=== PATIENT | female | born 1935 | race Caucasian/White ===

== ENCOUNTER 2017-04-26 06:41 | Day surgery (SDC) | payer MEDICARE, SELFPAY ==
[2017-04-26] MEDS: Bupivacaine 0.25% 30 ML Vial (06:56)
[2017-04-26 07:00] VITALS: BP 155/57; PULSE 69; RESP 14; TEMP 35.8; O2SAT 99; BMI 25.8
[2017-04-26] MEDS: MethylPREDNISolone Acetate 80 MG/ML Vial (07:14)
--- NOTE | 2017-04-26 08:20 | RAD_ITS ---
STUDY: X-RAY - LUMBAR SPINE REASON FOR EXAM: Female, 82 years old. Radiofrequency ablation of the left L3-S1 facet joints. TECHNIQUE: 9 coned-down view(s) of the lumbar spine were obtained intraoperatively.. COMPARISON: None FINDINGS: Imaging provided for left L3-S1 facet joint radiofrequency ablation. RAD/Lumbar Spine 2 or 3 Views IMPRESSION: Imaging provided for radiofrequency ablation. Electronically Signed: All Glasgow MD at 9:45 EST Tel [phone], Service support ,
[2017-04-26 08:50] VITALS: BP 121/56; BP 155/57; PULSE 58; RESP 16; TEMP 36.7; O2SAT 97
[2017-04-26 08:55] VITALS: BP 125/61; BP 155/57; PULSE 58; RESP 16; O2SAT 94
[2017-04-26 09:00] VITALS: BP 131/60; BP 155/57; PULSE 55; RESP 16; O2SAT 98
[2017-04-26 09:05] VITALS: BP 128/67; BP 155/57; PULSE 58; RESP 16; TEMP 36.6; O2SAT 98
[2017-04-26 09:31] VITALS: BP 155/57
--- NOTE | 2017-04-26 09:46 | PCM.OPRPT ---
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 (2) Lumbar facet arthropathy Status: Chronic (3) Lumbosacral spondylosis Status: Chronic Report of Operation Date of Procedure: 04/26/17 Pre-Operative Diagnosis: Lumbosacral spondylosis, lumbosacral degenerative disc disease, lumbar facet arthropathy Post-Operative Diagnosis: Lumbosacral spondylosis, lumbosacral degenerative disc disease, lumbar facet arthropathy Surgery/Procedure Performed:: Left-sided radiofrequency ablation of the medial branch L3-L4 L5-S1 Description of Surgical Findings:: PROCEDURE: Left-sided radiofrequency ablation of the medial branch L3, L4, L5, S1 PREOPERATIVE DIAGNOSES: Lumbosacral spondylosis, lumbosacral degenerative disc disease, lumbar facet arthropathy POSTOPERATIVE DIAGNOSES: Lumbosacral spondylosis, lumbosacral degenerative disc disease, lumbar facet arthropathy ANESTHESIA: MAC COMPLICATIONS: None BLOOD LOSS: Minimal PROCEDURE IN DETAIL: History and physical today was reviewed. Risks and benefits of procedure explained. The patient understood, agreed to the procedure and informed consent was obtained. IV inserted per routine protocol. The patient was taken to the operating room, placed in the prone position with a pillow positioned underneath the abdomen. The right side of the lower back was prepped and draped in a sterile fashion using iodine x 3. Under fluoroscopy guidance, on an oblique view, the L3 through S1 vertebral bodies were visualized. The skin and subcutaneous tissue was anesthetized with approximately 10 mL of 1% lidocaine using a 25-gauge regular needle. Under direct visualization with fluoroscopy at approximately 25-degree angle, starting on the left L3, ending on the left S1 passing through the L4-L5 using a 20-gauge 15 cm with a 10 mm curved active tip radiofrequency ablation needle the needle passed through the skin. The tip of the needle was maneuvered and directed towards the superior and medial gutter of the transverse process at the vicinity of the medial branch. Once the tip of the needle was in contact with the bone, the needle pulled approximately 2 mm up the bone. The stylet of each needle was then removed. After negative aspiration of blood with CSF and confirmation of AP as well as oblique view, radiofrequency ablation probe was then inserted at each level. Impedance was then recorded at L3 to be 244, at L4 291, at L5 303, at S1 222 ohm. Motor-evoked potential was then initiated to 1.5 volt without any motor response at each corresponding level. The probe was then removed intact and a total of 6 mL preservative-free 1% lidocaine was injected in divided doses between those 4 levels after negative aspiration of blood with CSF. The radiofrequency ablation probe was then reinserted after confirmation of AP, oblique as well as lateral view. Radiofrequency ablation was then initiated to 80 degrees Celsius for 90 seconds at each level. Once concluded, the probe was then removed intact and a total of 6 mL of preservative-free 0.25% Marcaine with 40 mg Depo-Medrol was injected in divided doses between those 4 levels. The needles were then removed intact. The patient experienced no signs or symptoms of intrathecal, intravascular injection. The patient experienced no paraesthesia. The procedure was completed without any apparent difficulty, any complication. The patient appeared to tolerate well. Sensory as well as motor exam was unchanged from prior to procedure. ASSESSMENT AND PLAN: This is a 82-year-old female with lumbosacral spondylosis, lumbosacral degenerative disc disease, lumbar facet arthropathy, status post left-sided radiofrequency ablation of the medial branch L3 through S1. The patient will continue her current medications. The patient will follow up in approximately 2 weeks for reevaluation.
== END 2017-04-26 09:32 | disposition home or self-care (01) ==
LOC: SDC 06:43 → AC 06:43
PROVIDERS: Family Provider Family Medicine; PCP Family Medicine; Visit Provider Anesthesiology Pain Medicine
PROC: (CPT 64635; principal; 2017-04-26 08:05)
DX: M51.17 Intervertebral disc disorders with radiculopathy, lumbosacral region (principal); M43.16 Spondylolisthesis, lumbar region; M47.27 Other spondylosis with radiculopathy, lumbosacral region; M53.3 Sacrococcygeal disorders, not elsewhere classified; M50.10 Cervical disc disorder with radiculopathy, unspecified cervical region; M47.812 Spondylosis without myelopathy or radiculopathy, cervical region; I10 Essential (primary) hypertension; K21.9 Gastro-esophageal reflux disease without esophagitis; I48.91 Unspecified atrial fibrillation; Z79.891 Long term (current) use of opiate analgesic; Z79.899 Other long term (current) drug therapy; Z78.0 Asymptomatic menopausal state; Z85.828 Personal history of other malignant neoplasm of skin
CPT/HCPCS: 64493; 64635; 64636 ×2; 72100; 76000; J7120

== ENCOUNTER 2017-05-24 09:58 | Day surgery (SDC) | payer MEDICARE, SELFPAY ==
[2017-05-24 10:21] VITALS: BP 152/60; PULSE 64; RESP 16; TEMP 36.2; O2SAT 98; BMI 25.4
--- NOTE | 2017-05-24 11:40 | RAD_ITS ---
PROCEDURE: Sacral block. DATE OF EXAMINATION: May 24, 2017. INDICATION: Female, 82 years old. Low back pain. FLUOROSCOPY TIME (if supplied): (0:15) minutes/seconds intraoperative fluoroscopy was provided for caudal block. The spinal needle is seen overlying the posterior midportion of the sacrum. RAD/Fluor Guidance for Spine Inj IMPRESSION: Intraoperative fluoroscopic service was provided for caudal block. Electronically Signed: All Glasgow MD at 13:37 EST Tel [phone], Service support ,
[2017-05-24] MEDS: Bupivacaine 0.25% 30 ML Vial (11:46)
[2017-05-24] MEDS: MethylPREDNISolone Acetate 80 MG/ML Vial (11:46)
[2017-05-24 11:53] VITALS: BP 131/63; BP 152/60; PULSE 66; RESP 16; TEMP 37; O2SAT 100
[2017-05-24 12:00] VITALS: BP 129/58; BP 152/60; PULSE 57; RESP 18; O2SAT 97
[2017-05-24 12:05] VITALS: BP 127/62; BP 152/60; PULSE 60; RESP 16; O2SAT 98
--- NOTE | 2017-05-24 12:06 | OP.PCM_ITS ---
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 (2) Lumbosacral radiculitis Status: Chronic Report of Operation Date of Procedure: 05/24/17 Pre-Operative Diagnosis: Lumbosacral radiculopathy, lumbosacral degenerative disc disease, lumbosacral spinal stenosis Post-Operative Diagnosis: Lumbosacral radiculopathy, lumbosacral degenerative disc disease, lumbosacral spinal stenosis Surgery/Procedure Performed:: Caudal epidural steroid injection Description of Surgical Findings:: PROCEDURE: Caudal epidural steroid injection PREOPERATIVE DIAGNOSIS: Lumbosacral radiculopathy, lumbosacral degenerative disc disease, lumbosacral spinal stenosis POSTOPERATIVE DIAGNOSIS: Lumbosacral radiculopathy, lumbosacral degenerative disc disease, lumbosacral spinal stenosis ANESTHESIA: MAC COMPLICATIONS: None BLOOD LOSS: Minimal PROCEDURE IN DETAIL: History and physical today was reviewed. Risks and benefits of the procedure were explained. The patient understood, agreed to our procedure, and informed consent was obtained. IV inserted per routine protocol. The patient was taken to the operating room, placed in a prone position with a pillow positioned underneath the abdomen. The lower back and tailbone area was prepped and draped in a sterile fashion using iodine ?3 under fluoroscopy guidance on the lateral view the caudal space was identified skin and subcutaneous tissue anesthetized approximately 3 cc of 1 % lidocaine using a 25-gauge regular needle under direct visualization with fluoroscopy on the lateral approach using a 22-gauge 3-1/2 inch spinal needle the needle was advanced via the skin through the sacral hiatus tip of the needle passed through the sacrococcygeal ligament advanced approximately S4 area after negative aspiration for blood or CSF a total of 3 cc of contrast were injected to confirm correct placement of the needle as well as cephalad spread the spread was followed to approximately L5 area after confirmation of AP as well as lateral view and repeated negative aspiration a total of 15 cc of preservative-free 0.125% Marcaine with 80 mg of Depo-Medrol were injected easily the needle was then removed intact patient experienced no sinus symptoms intrathecal or intravascular injection patient experienced no paresthesia the procedure was completed without any apparent difficulty any complication the patient appeared to tolerate well. ASSESSMENT AND PLAN: This is a 82-year-old Female with lumbosacral radiculopathy, lumbosacral degenerative disc disease, lumbosacral spinal stenosis status post caudal epidural steroid injection. The patient will continue her current medications. The patient will follow in approximately 2 weeks for possible repeat of the procedure if indicated.
[2017-05-24 12:10] VITALS: BP 134/64; BP 152/60; PULSE 60; RESP 16; TEMP 36.8; O2SAT 96
[2017-05-24 12:24] VITALS: BP 152/60
== END 2017-05-24 12:40 | disposition home or self-care (01) ==
LOC: SDC 09:59 → AC 10:00
PROVIDERS: Family Provider Family Medicine; PCP Family Medicine; Visit Provider Anesthesiology Pain Medicine
PROC: 3E0S3BZ Introduction of Anesthetic Agent into Epidural Space, Percutaneous Approach (ICD-10-PCS; CPT 62282; principal; 2017-05-24 11:25)
DX: M51.17 Intervertebral disc disorders with radiculopathy, lumbosacral region (principal); M47.27 Other spondylosis with radiculopathy, lumbosacral region; M43.16 Spondylolisthesis, lumbar region; M48.061 Spinal stenosis, lumbar region without neurogenic claudication; M53.3 Sacrococcygeal disorders, not elsewhere classified; M48.02 Spinal stenosis, cervical region; I10 Essential (primary) hypertension; M19.90 Unspecified osteoarthritis, unspecified site; K21.9 Gastro-esophageal reflux disease without esophagitis; Z79.891 Long term (current) use of opiate analgesic; Z79.899 Other long term (current) drug therapy; Z78.0 Asymptomatic menopausal state; Z85.828 Personal history of other malignant neoplasm of skin
CPT/HCPCS: 62323; 64483; 77003; J7120; J3490

== ENCOUNTER 2018-03-07 08:40 | Day surgery (SDC) | payer MEDICARE, SELFPAY ==
[2018-02-25 16:38] VITALS: BMI 25.8
[2018-03-07 09:23] VITALS: BP 165/72; PULSE 65; RESP 14; TEMP 36.9; O2SAT 99; BMI 27.3
[2018-03-07] MEDS: MethylPREDNISolone Acetate 80 MG/ML Vial (10:03)
[2018-03-07] MEDS: Bupivacaine 0.25% 30 ML Vial (10:03)
[2018-03-07 10:09] VITALS: BP 136/75; BP 165/72; PULSE 60; RESP 18; TEMP 36.1; O2SAT 96
--- NOTE | 2018-03-07 10:10 | RAD_ITS ---
PROCEDURE: Right C4-C7 cervical facet block. DATE OF EXAMINATION: March 07, 2018. INDICATION: Female, 83 years old. Chronic neck pain. FLUOROSCOPY TIME (if supplied): (0:14) minutes/seconds. For coned down intraoperative views were obtained. Intraoperative fluoroscopic imaging provided for right C4-C7 facet joint block. RAD/Cerv Spine 4 or 5 Views IMPRESSION: Intraoperative imaging provided for right C4-C7 facet joint block. Electronically Signed: All Glasgow MD at 9:36 EST Tel [phone], Service support ,
[2018-03-07 10:15] VITALS: BP 146/68; BP 165/72; PULSE 62; RESP 18; O2SAT 94
--- NOTE | 2018-03-07 10:19 | PCM.OPRPT ---
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 (2) DDD (degenerative disc disease), cervical Status: Chronic Report of Operation Date of Procedure: 03/07/18 Pre-Operative Diagnosis: Cervical spondylosis, cervical degenerative disc disease Post-Operative Diagnosis: Cervical spondylosis, cervical degenerative disc disease Surgery/Procedure Performed:: Right-sided cervical facet steroid injection C4, C5, C6, C7 Description of Surgical Findings:: PROCEDURE: Right-sided cervical facet steroid injection C4, C5, C6, C7 PREOPERATIVE DIAGNOSES: Cervical spondylosis, cervical degenerative disc disease, and cervical facet arthropathy POSTOPERATIVE DIAGNOSES: Cervical spondylosis, cervical degenerative disc disease, and cervical facet arthropathy ANESTHESIA: MAC COMPLICATIONS: None BLOOD LOSS: Minimal PROCEDURE IN DETAIL: History and physical today was reviewed. Risks and benefits of the procedure were explained. The patient understood, agreed to our procedure, and informed consent was obtained. IV inserted per routine protocol. The patient was taken to the operating room, placed in a prone position with a pillow positioned underneath the chest. The neck area was prepped and draped in a sterile fashion using iodine x3. Under fluoroscopy guidance, on AP view, C4 through C7 vertebral bodies were visualized. Under direct visualization fluoroscopy starting on the right C4 ending on the right C7 passing through the C5-C6 using a 25-gauge 3-1/2 inch spinal needle the needle was advanced via the skin the tip of the needle's maneuver and directed towards the epiphyseal junction of each corresponding vertebra once the tip of the needle was at the vicinity of the each corresponding vertebra under direct visualization with fluoroscopy and after repeated negative aspiration a total of 4 cc of preservative-free 0.25% Marcaine with 80 mg of Depo-Medrol were injected in divided doses between those 4 levels, the needles were then removed intact. The patient experienced no signs or symptoms of intrathecal, intravascular injection. The patient experienced no paraesthesia. The procedure was completed without any apparent difficulty, any complication. The patient appeared to tolerate well. Sensory as well as motor exam was unchanged from prior to procedure. ASSESSMENT AND PLAN: This is a 83-year-old Female with cervical spondylosis, cervical degenerative disc disease, and cervical facet arthropathy, status post right-sided cervical facet steroid injection C4 through C7. The patient will continue her current medications. The patient will follow up in approximately 2 weeks fo reevaluation.
[2018-03-07 10:20] VITALS: BP 143/69; BP 165/72; PULSE 62; RESP 18; O2SAT 98
[2018-03-07 10:25] VITALS: BP 151/63; BP 165/72; PULSE 59; RESP 18; TEMP 36.2; O2SAT 97
[2018-03-07 10:49] VITALS: BP 165/72
--- OUTSIDE RECORDS SUMMARY | 2018-06-08 19:49 | XMS RPT_ITS ---
:1935 Author Organization OHIP Care Team Providers Name Role Phone DARLIN SOTELO ([employer]) Attending Unavailable CEBUL IIIISAÍAS Attending Unavailable DARLIN SOTELO ([employer]) Referring Unavailable CEBUL IIIISAÍAS Referring Unavailable Michael Pérez Attending Unavailable Michael Pérez Referring Unavailable Cebul IIIIsaías Primary Care Unavailable Michael Pérez Attending Unavailable Michael Pérez Referring Unavailable Cebul III, Isaías Primary Care Unavailable Beto, Michael Attending Unavailable Beto, Michael Referring Unavailable Cebul III, Isaías Primary Care Unavailable Rashad Enriquez Attending Unavailable Cebul III, Isaías Referring Unavailable Cebul III, Isaías Primary Care Unavailable Beto, Michael Attending Unavailable Beto, Michael Referring Unavailable Cebul III, Isaías Primary Care Unavailable Diony Deshpande Attending Unavailable Cebul III, Isaías Referring Unavailable PROBLEMS PROBLEMS DATE TYPE CONDITION / CODE ATTENDING STATUS SOURCE 06/04/2015 Active Hyperlipidemia, NA Active [facility] unspecified / [facility] E78.5(ICD-10) Repository 07/14/2005 Active Essential NA Active [facility] (primary) [facility] hypertension / Repository I10(ICD-10) PROCEDURES PROCEDURES No Procedure Records FoundRESULTS RESULTS PROGRESS Observed: 04/12/2018 Status: COMPLETED Source: [facility] 8:47 AM [facility] REPOSITORY HNO ID: [id number] Author: Isaías Royal III Service: (none) Author Type: Physician Type: Progress Notes Filed: 04/12/2018 9:28 AM Note Text: SUBJECTIVE: Chief Complaint: Silvia Bergman is a 83 year old female who presents for a comprehensive problem evaluation. New concerns today include 1. hypertension--started on hctz 12.5mg qday last wk 2. hx of atrial fib. [employer] did not want her on an anticoagulant. 3. Dr Monique placed her on cymbalta for L lumbar radiculopathy 4. cymbalta helped her with grieving 's but she had evil dreams. Exercises regularly - Minimal exercise associated with work or ADL's DEXA is due - No Last DEXA was done 2007 Current Outpatient Prescriptions on File Prior to Visit: Hydrochlorothiazide 12.5 mg capsule Take 1 capsule by mouth once daily. escitalopram oxalate (LEXAPRO) 10 mg tablet Take 1 tablet by mouth once daily. lisinopril (ZESTRIL, PRINIVIL) 40 mg tablet Take 1 tablet by mouth once daily. verapamil SR (CALAN SR) 240 mg CR tablet Take 1 tablet by mouth twice daily. metoprolol succinate ER (TOPROL XL) 100 mg Tb24 Take 1 tablet by mouth once daily. famotidine (PEPCID) 40 mg tablet Take 1 tablet by mouth once daily. atorvastatin (LIPITOR) 10 mg tablet Take 1 tablet by mouth once daily. meloxicam (MOBIC) 7.5 mg tablet Take 7.5 mg by mouth once daily. traMADol (ULTRAM) 50 mg tablet Take 1 tablet by mouth every 6 hours as needed for Pain. estradiol (ESTRACE) 0.01 % (0.1 mg/gram) vaginal cream Use small amount at vaginal opening 2-3 nights per week cholecalciferol(VITAMIN D 1,000 UNIT CAP) Take one daily MULTI-VITAMIN TAB Take one(1) tablet daily. No current facility-administered medications on file prior to visit. PAST MEDICAL HISTORY Diagnosis Date - Disc disease, degenerative, lumbar or lumbosacral - Diverticulosis of colon (without mention of hemorrhage) - Essential hypertension, benign - GERD (gastroesophageal reflux disease) - Internal hemorrhoids without mention of complication - Lumbosacral radiculopathy - Lumbosacral spinal stenosis - Mitral valve disorders(424.0) - Neurogenic claudication due to lumbar spinal stenosis 01/19/2012 - Other acute pericarditis - Other and unspecified hyperlipidemia - Palpitations - Unspecified atrial fibrillation (HCC) - Venous insufficiency 07/23/2011 MENSTRUAL HISTORY PERIOD REGULARITY: FLOW CHARACTERISTICS: DYSMENORRHEA: CYCLIC SYMPTOMS: HORMONE REPLACEMENT: PAST SURGICAL HISTORY Procedure Laterality Date - CATARACT EXT; EYEONICS IOL SYS 2010 bilateral - COLONOSCOP W/ OR W/O BRSH SPEC 10/28/2005 Colonoscopy - LIGATE FALLOPIAN TUBE Tubal ligation - RADIOFREQUENCY ABLATION Right 04/11/2018 Medial brach L3, L4, L5, S1 - REM LESIO TRUNK,ARM,LEG 1.1 -2.0CM 11/24/06 Exc. left mid abd lesion - REMOVAL GALLBLADDER 1968 Cholecystectomy - TOTAL ABDOM HYSTERECTOMY 1982 Hysterectomy, MELO (without BSO) FAMILY HISTORY Problem Relation Age of Onset - other (brain tumor [Other]) Father - Hypertension Mother - other (neuropathy/lower leg [Other]) Mother - Diabetes Mother diabetic peripheral neuropathy - Hypertension Sister Social History Marital status: Spouse name: Flor Years of education: 12 Number of children: 4 Occupational History Occupation Employer Comment RETIRED Social History Main Topics Smoking status: Never Smoker Smokeless tobacco: Never Used Alcohol use: No Drug use: No Sexual activity: No Immunization History Administered Date(s) Administered DT(PEDIATRIC) 02/04/1999 Influenza Seasonal - High Dose - Age 65+ 01/09/2016 12/20/2017 Influenza Seasonal Inj Age 3+ 01/05/2014 Influenza Vaccine, Split-Non Spec 01/01/2012 01/09/2013 Influenza Vaccine, Whole 01/22/2005 Pneumococcal-13 Vac Conjugate 06/04/2015 Zostavax 02/15/2016 ACTIVE PROBLEM LIST Essential Hypertension, Benign Hyperlipidemia Ldl Goal <130 Palpitations Senile Osteoporosis Venous Insufficiency Neurogenic Claudication Due to Lumbar Spinal Stenosis Skin Cancer Trigger Ring Finger of Left Hand Entrapment of Left Ulnar Nerve Uterine Prolapse Recurrent Uti Microscopic Hematuria Lower Urinary Tract Symptoms (Luts) REVIEW OF SYSTEMS: GENERAL:Denies fever, chills, night sweats, or changes in weight. DERMATOLOGIC: Denies any new skin conditions, rashes or changing moles. EYES: ENT: RESPIRATORY: Denies any cough, dyspnea, or wheezing. CARDIOVASCULAR: Denies any chest pain with exertion or at rest, palpitations, syncope, or edema. BREASTS: no lumps, discharge or pain GASTROINTESTINAL: Denies any nausea, vomiting, abdominal pain, heartburn, changes in bowel habit, Denies any rectal bleeding. GENITOURINARY: Denies any urinary frequency, urgency, incontinence, dysuria. Denies vaginal odor, discharge or lesions. Denies irregular vaginal bleeding or spotting. MUSCULOSKELETAL: Denies any joint swelling, crepitus, joint pain, or loss of range of motion., Positive for back pain NEURO: Denies any headaches, tremors, dizziness, vertigo, memory loss, confusion., Denies weakness, numbness or tingling.. PSYCHIATRIC: Denies any sleeping problems, history of abuse, marital discord., Positive for depression HEMATOLOGIC/LYMPHATIC/IMMUNOLOGIC: Denies anemia, bruising, bleeding abnormalities. ENDOCRINE: Denies any heat or cold intolerance, polyuria or polydipsia. OBJECTIVE: PHYSICAL EXAMINATION: BP 177/76 Pulse 76 Temp 36.7 ?C (98 ?F) (Right Tympanic) Resp 12 Ht 162 cm (5' 3.78) Wt 67.1 kg (148 lb) BMI 25.58 kg/m? GENERAL APPEARANCE: Well appearing, alert, in no acute distress, well-hydrated, well nourished. SKIN: Skin color, texture, turgor normal, no suspicious rashes or lesions HEAD: No significant findings. NECK: Supple, no lymphadenopathy, normal thyroid, no carotid bruits and no JVD BACK: Back symmetric, Normal curvature, No CVAT. LUNGS: Normal breath sounds, Clear to auscultation, No wheezes, No crackles HEART:Normal PMI, Regular rate and rhythm, Normal heart sounds, S1 and S2 and No murmurs. BREASTS: Exam deferred ABDOMEN: Soft, Non-tender, No palpable masses and No hepatosplenomegaly. EXTREMITIES:Normal, No deformities, No skin discoloration, No edema and Normal pulses bilaterally. NEURO: Awake, alert and oriented x 3, Normal gait and No involuntary motions. GENITALIA: exam deferred RECTAL: No anorectal masses, anal sphincter exam normal and exam deferred Lab Results for SILVIA BERGMAN ( ) as of 04/12/2018 09:00 Ref. Range 04/08/2018 10:46 Sodium Latest Ref Range: 136 - 144 mmol/L 141 Potassium Latest Ref Range: 3.7 - 5.1 mmol/L 3.7 Chloride Latest Ref Range: 97 - 105 mmol/L 101 CO2 Latest Ref Range: 22 - 30 mmol/L 24 BUN Latest Ref Range: 7 - 21 mg/dL 17 Creatinine Latest Ref Range: 0.58 - 0.96 mg/dL 0.81 Glucose Latest Ref Range: 74 - 99 mg/dL 89 Protein, Total Latest Ref Range: 6.3 - 8.0 g/dL 6.8 Calcium Latest Ref Range: 8.5 - 10.2 mg/dL 9.6 Albumin Latest Ref Range: 3.9 - 4.9 g/dL 4.2 Bilirubin, Total Latest Ref Range: 0.2 - 1.3 mg/dL 0.6 Alkaline Phosphatase Latest Ref Range: 34 - 123 U/L 106 ALT Latest Ref Range: 7 - 38 U/L 11 AST Latest Ref Range: 13 - 35 U/L 20 Anion Gap Latest Ref Range: 9 - 18 mmol/L 16 eGFR- Unknown >60 eGFR-All Other Races Latest Units: . >60 Hematocrit Latest Ref Range: 36.0 - 46.0 % 37.9 Total Cholesterol, Nonfasting Latest Ref Range: <200 mg/dL 252 (H) Triglycerides, Nonfasting Latest Ref Range: <150 mg/dL 103 HDL Cholesterol, Nonfasting Latest Ref Range: >39 mg/dL 63 LDL Cholesterol, Nonfasting Latest Ref Range: <100 mg/dL 168 (H) Non HDL Cholesterol, Nonfasting Latest Ref Range: <130 mg/dL 189 (H) VLDL Cholesterol, Nonfasting Latest Ref Range: <30 mg/dL 21 Total Chol/HDL Ratio, Nonfasting Latest Ref Range: <5.10 mg/dL 4.00 LDL/HDL Ratio, Nonfasting Latest Ref Range: <2.54 mg/dL 2.67 (H) TSH Latest Ref Range: 0.400 - 5.500 uU/mL 3.030 WBC Latest Ref Range: 3.70 - 11.00 k/uL 5.88 RBC Latest Ref Range: 3.90 - 5.20 m/uL 3.94 Hemoglobin Latest Ref Range: 11.5 - 15.5 g/dL 12.3 Platelet Count Latest Ref Range: 150 - 400 k/uL 327 MCV Latest Ref Range: 80.0 - 100.0 fL 96.2 MCH Latest Ref Range: 26.0 - 34.0 pG 31.2 MCHC Latest Ref Range: 30.5 - 36.0 g/dL 32.5 MPV Latest Ref Range: 9.0 - 12.7 fL 9.6 RDW-CV Latest Ref Range: 11.5 - 15.0 % 13.1 Neut% Latest Units: % 70.7 Abs Neut (ANC) Latest Ref Range: 1.45 - 7.50 k/uL 4.15 Lymph% Latest Units: % 15.0 Abs Lymph Latest Ref Range: 1.00 - 4.00 k/uL 0.88 (L) Dawson% Latest Units: % 9.0 Abs Dawson Latest Ref Range: <0.87 k/uL 0.53 Eosin% Latest Units: % 4.3 Abs Eosin Latest Ref Range: <0.46 k/uL 0.25 Baso% Latest Units: % 1.0 Abs Baso Latest Ref Range: <0.11 k/uL 0.06 Nucleated Reds Latest Ref Range: 0 /100 WBC 0.0 Absolute nRBC Latest Ref Range: <0.01 k/uL <0.01 Diff Type Unknown Auto Diff ASSESSMENT paroxysmal atrial fibrillation--controlled hypertension--near goal lumbar degenerative disc dis.--improved hyperlipidemia--not at goal PLAN: healthy diet and stay active same medications nurse bp check in 2 wks SAMIR Martinez MD, III MD CNOV Observed: 04/12/2018 Status: COMPLETED Source: [facility] 8:[address] [facility] REPOSITORY Office Visit (FAMPWS) SILVIA BERGMAN ([id number]) 1935 F NFR Date Time Provider Department 04/12/18 8:40 AM ISAÍAS ROYAL III During your visit today, we recorded the following information about you: Temperature Pulse Respiration Blood pressure 98 degrees 76/minute 12/minute 177/76 Weight Height 67.1 kg 1.62 m Isaías Royal III MD 04/12/2018 9:28 AM Signed SUBJECTIVE: Chief Complaint: Silvia Bergman is a 83 year old female who presents for a comprehensive problem evaluation. New concerns today include 1. hypertension--started on hctz 12.5mg qday last wk 2. hx of atrial fib. [employer] Qual[employer] did not want her on an anticoagulant. 3. Dr Monique placed her on cymbalta for L lumbar radiculopathy 4. cymbalta helped her with grieving 's but she had evil dreams. Exercises regularly - Minimal exercise associated with work or ADL's DEXA is due - No Last DEXA was done 2007 Current Outpatient Prescriptions on File Prior to Visit: Hydrochlorothiazide 12.5 mg capsule Take 1 capsule by mouth once daily. escitalopram oxalate (LEXAPRO) 10 mg tablet Take 1 tablet by mouth once daily. lisinopril (ZESTRIL, PRINIVIL) 40 mg tablet Take 1 tablet by mouth once daily. verapamil SR (CALAN SR) 240 mg CR tablet Take 1 tablet by mouth twice daily. metoprolol succinate ER (TOPROL XL) 100 mg Tb24 Take 1 tablet by mouth once daily. famotidine (PEPCID) 40 mg tablet Take 1 tablet by mouth once daily. atorvastatin (LIPITOR) 10 mg tablet Take 1 tablet by mouth once daily. meloxicam (MOBIC) 7.5 mg tablet Take 7.5 mg by mouth once daily. traMADol (ULTRAM) 50 mg tablet Take 1 tablet by mouth every 6 hours as needed for Pain. estradiol (ESTRACE) 0.01 % (0.1 mg/gram) vaginal cream Use small amount at vaginal opening 2-3 nights per week cholecalciferol(VITAMIN D 1,000 UNIT CAP) Take one daily MULTI-VITAMIN TAB Take one(1) tablet daily. No current facility-administered medications on file prior to visit. PAST MEDICAL HISTORY Diagnosis Date - Disc disease, degenerative, lumbar or lumbosacral - Diverticulosis of colon (without mention of hemorrhage) - Essential hypertension, benign - GERD (gastroesophageal reflux disease) - Internal hemorrhoids without mention of complication - Lumbosacral radiculopathy - Lumbosacral spinal stenosis - Mitral valve disorders(424.0) - Neurogenic claudication due to lumbar spinal stenosis 01/19/2012 - Other acute pericarditis - Other and unspecified hyperlipidemia - Palpitations - Unspecified atrial fibrillation (HCC) - Venous insufficiency 07/23/2011 MENSTRUAL HISTORY PERIOD REGULARITY: FLOW CHARACTERISTICS: DYSMENORRHEA: CYCLIC SYMPTOMS: HORMONE REPLACEMENT: PAST SURGICAL HISTORY Procedure Laterality Date - CATARACT EXT; EYEONICS IOL SYS 2010 bilateral - COLONOSCOP W/ OR W/O BRSH SPEC 10/28/2005 Colonoscopy - LIGATE FALLOPIAN TUBE Tubal ligation - RADIOFREQUENCY ABLATION Right 04/11/2018 Medial brach L3, L4, L5, S1 - REM LESIO TRUNK,ARM,LEG 1.1 -2.0CM 11/24/06 Exc. left mid abd lesion - REMOVAL GALLBLADDER 1968 Cholecystectomy - TOTAL ABDOM HYSTERECTOMY 1982 Hysterectomy, MELO (without BSO) FAMILY HISTORY Problem Relation Age of Onset - other (brain tumor [Other]) Father - Hypertension Mother - other (neuropathy/lower leg [Other]) Mother - Diabetes Mother diabetic peripheral neuropathy - Hypertension Sister Social History Marital status: Spouse name: Flor Years of education: 12 Number of children: 4 Occupational History Occupation Employer Comment RETIRED Social History Main Topics Smoking status: Never Smoker Smokeless tobacco: Never Used Alcohol use: No Drug use: No Sexual activity: No Immunization History Administered Date(s) Administered DT(PEDIATRIC) 02/04/1999 Influenza Seasonal - High Dose - Age 65+ 01/09/2016 12/20/2017 Influenza Seasonal Inj Age 3+ 01/05/2014 Influenza Vaccine, Split-Non Spec 01/01/2012 01/09/2013 Influenza Vaccine, Whole 01/22/2005 Pneumococcal-13 Vac Conjugate 06/04/2015 Zostavax 02/15/2016 ACTIVE PROBLEM LIST Essential Hypertension, Benign Hyperlipidemia Ldl Goal <130 Palpitations Senile Osteoporosis Venous Insufficiency Neurogenic Claudication Due to Lumbar Spinal Stenosis Skin Cancer Trigger Ring Finger of Left Hand Entrapment of Left Ulnar Nerve Uterine Prolapse Recurrent Uti Microscopic Hematuria Lower Urinary Tract Symptoms (Luts) REVIEW OF SYSTEMS: GENERAL:Denies fever, chills, night sweats, or changes in weight. DERMATOLOGIC: Denies any new skin conditions, rashes or changing moles. EYES: ENT: RESPIRATORY: Denies any cough, dyspnea, or wheezing. CARDIOVASCULAR: Denies any chest pain with exertion or at rest, palpitations, syncope, or edema. BREASTS: no lumps, discharge or pain GASTROINTESTINAL: Denies any nausea, vomiting, abdominal pain, heartburn, changes in bowel habit, Denies any rectal bleeding. GENITOURINARY: Denies any urinary frequency, urgency, incontinence, dysuria. Denies vaginal odor, discharge or lesions. Denies irregular vaginal bleeding or spotting. MUSCULOSKELETAL: Denies any joint swelling, crepitus, joint pain, or loss of range of motion., Positive for back pain NEURO: Denies any headaches, tremors, dizziness, vertigo, memory loss, confusion., Denies weakness, numbness or tingling.. PSYCHIATRIC: Denies any sleeping problems, history of abuse, marital discord., Positive for depression HEMATOLOGIC/LYMPHATIC/IMMUNOLOGIC: Denies anemia, bruising, bleeding abnormalities. ENDOCRINE: Denies any heat or cold intolerance, polyuria or polydipsia. OBJECTIVE: PHYSICAL EXAMINATION: BP 177/76 Pulse 76 Temp 36.7 ?C (98 ?F) (Right Tympanic) Resp 12 Ht 162 cm (5' 3.78) Wt 67.1 kg (148 lb) BMI 25.58 kg/m? GENERAL APPEARANCE: Well appearing, alert, in no acute distress, well-hydrated, well nourished. SKIN: Skin color, texture, turgor normal, no suspicious rashes or lesions HEAD: No significant findings. NECK: Supple, no lymphadenopathy, normal thyroid, no carotid bruits and no JVD BACK: Back symmetric, Normal curvature, No CVAT. LUNGS: Normal breath sounds, Clear to auscultation, No wheezes, No crackles HEART:Normal PMI, Regular rate and rhythm, Normal heart sounds, S1 and S2 and No murmurs. BREASTS: Exam deferred ABDOMEN: Soft, Non-tender, No palpable masses and No hepatosplenomegaly. EXTREMITIES:Normal, No deformities, No skin discoloration, No edema and Normal pulses bilaterally. NEURO: Awake, alert and oriented x 3, Normal gait and No involuntary motions. GENITALIA: exam deferred RECTAL: No anorectal masses, anal sphincter exam normal and exam deferred Lab Results for SILVIA BERGMAN ( ) as of 04/12/2018 09:00 Ref. Range 04/08/2018 10:46 Sodium Latest Ref Range: 136 - 144 mmol/L 141 Potassium Latest Ref Range: 3.7 - 5.1 mmol/L 3.7 Chloride Latest Ref Range: 97 - 105 mmol/L 101 CO2 Latest Ref Range: 22 - 30 mmol/L 24 BUN Latest Ref Range: 7 - 21 mg/dL 17 Creatinine Latest Ref Range: 0.58 - 0.96 mg/dL 0.81 Glucose Latest Ref Range: 74 - 99 mg/dL 89 Protein, Total Latest Ref Range: 6.3 - 8.0 g/dL 6.8 Calcium Latest Ref Range: 8.5 - 10.2 mg/dL 9.6 Albumin Latest Ref Range: 3.9 - 4.9 g/dL 4.2 Bilirubin, Total Latest Ref Range: 0.2 - 1.3 mg/dL 0.6 Alkaline Phosphatase Latest Ref Range: 34 - 123 U/L 106 ALT Latest Ref Range: 7 - 38 U/L 11 AST Latest Ref Range: 13 - 35 U/L 20 Anion Gap Latest Ref Range: 9 - 18 mmol/L 16 eGFR- Unknown >60 eGFR-All Other Races Latest Units: . >60 Hematocrit Latest Ref Range: 36.0 - 46.0 % 37.9 Total Cholesterol, Nonfasting Latest Ref Range: <200 mg/dL 252 (H) Triglycerides, Nonfasting Latest Ref Range: <150 mg/dL 103 HDL Cholesterol, Nonfasting Latest Ref Range: >39 mg/dL 63 LDL Cholesterol, Nonfasting Latest Ref Range: <100 mg/dL 168 (H) Non HDL Cholesterol, Nonfasting Latest Ref Range: <130 mg/dL 189 (H) VLDL Cholesterol, Nonfasting Latest Ref Range: <30 mg/dL 21 Total Chol/HDL Ratio, Nonfasting Latest Ref Range: <5.10 mg/dL 4.00 LDL/HDL Ratio, Nonfasting Latest Ref Range: <2.54 mg/dL 2.67 (H) TSH Latest Ref Range: 0.400 - 5.500 uU/mL 3.030 WBC Latest Ref Range: 3.70 - 11.00 k/uL 5.88 RBC Latest Ref Range: 3.90 - 5.20 m/uL 3.94 Hemoglobin Latest Ref Range: 11.5 - 15.5 g/dL 12.3 Platelet Count Latest Ref Range: 150 - 400 k/uL 327 MCV Latest Ref Range: 80.0 - 100.0 fL 96.2 MCH Latest Ref Range: 26.0 - 34.0 pG 31.2 MCHC Latest Ref Range: 30.5 - 36.0 g/dL 32.5 MPV Latest Ref Range: 9.0 - 12.7 fL 9.6 RDW-CV Latest Ref Range: 11.5 - 15.0 % 13.1 Neut% Latest Units: % 70.7 Abs Neut (ANC) Latest Ref Range: 1.45 - 7.50 k/uL 4.15 Lymph% Latest Units: % 15.0 Abs Lymph Latest Ref Range: 1.00 - 4.00 k/uL 0.88 (L) Dawson% Latest Units: % 9.0 Abs Dawson Latest Ref Range: <0.87 k/uL 0.53 Eosin% Latest Units: % 4.3 Abs Eosin Latest Ref Range: <0.46 k/uL 0.25 Baso% Latest Units: % 1.0 Abs Baso Latest Ref Range: <0.11 k/uL 0.06 Nucleated Reds Latest Ref Range: 0 /100 WBC 0.0 Absolute nRBC Latest Ref Range: <0.01 k/uL <0.01 Diff Type Unknown Auto Diff ASSESSMENT paroxysmal atrial fibrillation--controlled hypertension--near goal lumbar degenerative disc dis.--improved hyperlipidemia--not at goal PLAN: healthy diet and stay active same medications nurse bp check in 2 wks SAMIR Martinez MD, III MD Frank A Cebul, III MD 04/12/2018 9:21 AM Signed PLAN: healthy diet and stay active same medications nurse bp check in 2 wks Isaías Royal III MD Referring Provider: SELF [[id number]] Allergies As of Date: 04/12/2018 Noted Allergy Reaction HYDROCODONE-ACETAMINOPHEN 02/25/2012 8 - GI Upset Date Reviewed: 04/12/2018 Reviewed by: Danielle Sheffield Ma - Fully Assessed Reason for Visit: Physical [83] Primary Visit Diagnosis:Essential hypertension, benign [I10] Other Visit Diagnoses: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] Hyperlipidemia LDL goal <130 [E78.5] DDD (degenerative disc disease), lumbar [M51.36] Order(s):estradiol (ESTRACE) 0.01 % (0.1 mg/gram) vaginal creamUse small amount at vaginal opening 2-3 nights per weekDisp: 1 TubeRfl: 2 metoprolol succinate ER (TOPROL XL) 100 mg [id number] 1 tablet by mouth once daily.Disp: 90 tabletRfl: 3 famotidine (PEPCID) 40 mg tabletTake 1 tablet by mouth once daily.Disp: 90 tabletRfl: 3 verapamil SR (CALAN SR) 240 mg CR tabletTake 1 tablet by mouth twice daily.Disp: 180 tabletRfl: 3 lisinopril (ZESTRIL, PRINIVIL) 40 mg tabletTake 1 tablet by mouth once daily.Disp: 90 tabletRfl: 3 Prescriptions as of 04/12/2018 Sig: MELOXICAM 7.5 MG TABLET Take 7.5 mg by mouth once cuco* TRAMADOL 50 MG TABLET Take 1 tablet by mouth every * VITAMIN D3 1,000 UNIT CAPSULE Take one daily MULTI-VITAMIN TABLET Take one(1) tablet daily. 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] INVALID FOR* Unspecified vitamin D deficiency [E55.9] INVALID FOR*06/04/2015 Irritated//Inflamed Seborrheic Keratosis [L82.0]INVALID FOR*06/04/2015 Other Seborrheic Keratoses [L82.1] INVALID FOR*06/04/2015 Solar Lentigines [L81.4] INVALID FOR*06/04/2015 Actinic Damage///Sun-damaged skin [L57.8] INVALID FOR*06/04/2015 Venous insufficiency [I87.2] INVALID FOR* Neurogenic claudication due to lumbar spinal st*INVALID FOR* Rectal bleeding [K62.5] INVALID FOR*06/04/2015 Skin cancer [C44.90] INVALID FOR*04/12/2018 Trigger ring finger of left hand [M65.342] INVALID FOR*04/12/2018 Entrapment of left ulnar nerve [G56.22] INVALID FOR*04/12/2018 Uterine prolapse [N81.4] INVALID FOR* Recurrent UTI [N39.0] INVALID FOR*04/12/2018 Microscopic hematuria [R31.29] INVALID FOR*04/12/2018 Lower urinary tract symptoms (LUTS) [R39.9] INVALID FOR* DDD (degenerative disc disease), lumbar [M51.36]INVALID FOR* Other instructions from your clinician: PLAN: healthy diet and stay active same medications nurse bp check in 2 wks Isaías Royal III MD Prescriptions ordered this encounter Disp Refills Start End ESTRADIOL 0.01% (0.1 MG/GRAM) VAGINA* 1 Tu* 2 04/12/2018 Sig: Use small amount at vaginal opening 2-3 nights per week METOPROLOL SUCCINATE ER 100 MG TABLE* 90 t* 3 04/12/2018 Route: ORAL Sig: Take 1 tablet by mouth once daily. FAMOTIDINE 40 MG TABLET 90 t* 3 04/12/2018 Route: ORAL Sig: Take 1 tablet by mouth once daily. VERAPAMIL ER (SR) 240 MG TABLET,EXTE* 180 * 3 04/12/2018 Route: ORAL Sig: Take 1 tablet by mouth twice daily. LISINOPRIL 40 MG TABLET 90 t* 3 04/12/2018 Route: ORAL Sig: Take 1 tablet by mouth once daily. Medications Discontinued During This Encounter atorvastatin (LIPITOR) 10 mg tablet 90 t* 3 05/13/2017 04/12/2018 Route: ORAL Sig: Take 1 tablet by mouth once daily. Disc: Discontinued by Patient estradiol (ESTRACE) 0.01 % (0.1 mg/g* 1 Tu* 2 04/09/2015 04/12/2018 Sig: Use small amount at vaginal opening 2-3 nights per week Disc: Reason for discontinue is not on file. metoprolol succinate ER (TOPROL XL) * 90 t* 3 05/13/2017 04/12/2018 Route: ORAL Sig: Take 1 tablet by mouth once daily. Disc: Reason for discontinue is not on file. famotidine (PEPCID) 40 mg tablet 90 t* 3 05/13/2017 04/12/2018 Route: ORAL Sig: Take 1 tablet by mouth once daily. Disc: Reason for discontinue is not on file. verapamil SR (CALAN SR) 240 mg CR ta* 180 * 4 06/22/2017 04/12/2018 Class: [facility] Route: ORAL Sig: Take 1 tablet by mouth twice daily. Disc: Reason for discontinue is not on file. lisinopril (ZESTRIL, PRINIVIL) 40 mg* 90 t* 3 07/12/2017 04/12/2018 Route: ORAL Sig: Take 1 tablet by mouth once daily. Disc: Reason for discontinue is not on file. Encounter Status:Closed by ISAÍAS ROYAL III, MD on 04/12/18 OPERATIVE REPORT Observed: 04/11/2018 Status: F Source: [place] 10:26 AM [facility] REPOSITORY [facility] Medical Records Department [address] [place] [id number] Operative Report 04/11/18 1024 MR#: [id number] Acct: [id number] Name: SILVIA BERGMAN Rep #: [id number] : 1935 83 From: Michael Pérez MD PCP: Isaaís Royal III, MD Status: DEP [facility] Y Location: [facility] 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 (2) Lumbar facet arthropathy Status: Chronic (3) Lumbosacral spondylosis Status: Chronic Report of Operation Date of Procedure: 04/11/18 Pre-Operative Diagnosis: Lumbosacral spondylosis, lumbosacral degenerative disc disease, lumbar facet arthropathy Post-Operative Diagnosis: Lumbosacral spondylosis, lumbosacral degenerative disc disease, lumbar facet arthropathy Surgery/Procedure Performed:: Right-sided lumbar radiofrequency ablation of the medial branch at L3, L4, L5, S1 Description of Surgical Findings:: PROCEDURE: Right-sided radiofrequency ablation of the medial branch L3, L4, L5, S1 PREOPERATIVE DIAGNOSES: Lumbosacral spondylosis, lumbosacral degenerative disc disease, lumbar facet arthropathy POSTOPERATIVE DIAGNOSES: Lumbosacral spondylosis, lumbosacral degenerative disc disease, lumbar facet arthropathy ANESTHESIA: MAC COMPLICATIONS: None BLOOD LOSS: Minimal PROCEDURE IN DETAIL: History and physical today was reviewed. Risks and benefits of procedure explained. The patient understood, agreed to the procedure and informed consent was obtained. IV inserted per routine protocol. The patient was taken to the operating room, placed in the prone position with a pillow positioned underneath the abdomen. The right side of the lower back was prepped and draped in a sterile fashion using iodine x 3. Under fluoroscopy guidance, on an oblique view, the L3 through S1 vertebral bodies were visualized. The skin and subcutaneous tissue was anesthetized with approximately 10 mL of 1% lidocaine using a 25-gauge regular needle. Under direct visualization with fluoroscopy at approximately 25-degree angle, starting on the right L3, ending on the right S1 passing through the L4-L5 using a 20-gauge 15 cm with a 10 mm curved active tip radiofrequency ablation needle the needle passed through the skin. The tip of the needle was maneuvered and directed towards the superior and medial gutter of the transverse process at the vicinity of the medial branch. Once the tip of the needle was in contact with the bone, the needle pulled approximately 2 mm up the bone. The stylet of each needle was then removed. After negative aspiration of blood with CSF and confirmation of AP as well as oblique view, radiofrequency ablation probe was then inserted at each level. Impedance was then recorded at L3 to be 240, at L4 266, at L5 310, at S1 296 ohm. Motor-evoked potential was then initiated to 1.5 volt without any motor response at each corresponding level. The probe was then removed intact and a total of 6 mL preservative- free 1% lidocaine was injected in divided doses between those 4 levels after negative aspiration of blood with CSF. The radiofrequency ablation probe was then reinserted after confirmation of AP, oblique as well as lateral view. Radiofrequency ablation was then initiated to 80 degrees Celsius for 90 seconds at each level. Once concluded, the probe was then removed intact and a total of 6 mL of preservative-free 0.25% Marcaine with 40 mg Depo-Medrol was injected in divided doses between those 4 levels. The needles were then removed intact. The patient experienced no signs or symptoms of intrathecal, intravascular injection. The patient experienced no paraesthesia. The procedure was completed without any apparent difficulty, any complication. The patient appeared to tolerate well. Sensory as well as motor exam was unchanged from prior to procedure. ASSESSMENT AND PLAN: This is a 83-year-old Female with lumbosacral spondylosis, lumbosacral degenerative disc disease, lumbar facet arthropathy, status post right-sided radiofrequency ablation of the medial branch L3 through S1. The patient will continue her current medications. The patient will follow up in approximately 2 weeks for reevaluation. 04/11/18 1026 <Electronically signed by Michael Pérez MD> Date Michael Pérez MD CC: Isaías Royal III, MD; Michael Pérez Signed LUMBAR SPINE 2 OR 3 Observed: 04/11/2018 Status: F Source: [place] VIEWS 1:23 AM [facility] REPOSITORY [facility] Imaging Services [address] [place] [id number] Lumbar Spine 2 or 3 Views MR#: [id number] Acct: [id number] Name: SILVIA BERGMAN Rep #: [id number] : 1935 F 83 From: All Glasgow MD PCP: Isaías Royal III, MD Status: [facility] Study: Lumbar Spine 2 or 3 Views Date of Exam: 04/11/18 Exam# [id number] Ordering Dr: Michael Pérez MD STUDY: X-RAY - LUMBAR SPINE REASON FOR EXAM: Female, 83 years old. Right L3 S1 nerve root ablation. TECHNIQUE: 6 cone-down view(s) of the lumbar spine were obtained intraoperatively. 36 seconds of fluoroscopy. COMPARISON: None FINDINGS: Intraoperative imaging provided for right L3-S1 nerve root ablation. RAD/Lumbar Spine 2 or 3 Views IMPRESSION: Intraoperative imaging provided for right L3-S1 nerve root ablation. Electronically Signed: All Glasgow MD at 12:25 EST Tel [phone], Service support , CC: Isaías Royal III, MD; Michael Pérez Pharmacogeneticist: Signed CBC AND DIFFERENTIAL Collected: 04/08/2018 Status: F Source: [facility] 10:46 AM [facility] REPOSITORY TYPE CODE TESTS RESULT OUT OF REFERENCE UNITS RANGE LAB WBC 3.70-11.00 k/uL WBC 5.88 LAB RBC 3.90-5.20 m/uL RBC 3.94 LAB HGB 11.5-15.5 g/dL Hemoglobin 12.3 LAB HCT 36.0-46.0 % Hematocrit 37.9 LAB MCV 80.0-100.0 fL MCV 96.2 LAB MCH 26.0-34.0 pG MCH 31.2 LAB MCHC 30.5-36.0 g/dL MCHC 32.5 LAB RDWCV 11.5-15.0 % RDW-CV 13.1 LAB PLTCT 150-400 k/uL Platelet Count 327 LAB MPV 9.0-12.7 fL MPV 9.6 LAB ANEUT % Neut% 70.7 LAB AANEUT 1.45-7.50 k/uL Abs Neut 4.15 LAB ALYMP % Lymph% 15.0 LAB AALYMP 1.00-4.00 k/uL Low Abs Lymph 0.88 LAB AMONO % Dawson% 9.0 LAB AAMONO <0.87 k/uL Abs Dawson 0.53 LAB AEOS % Eosin% 4.3 LAB AAEOS <0.46 k/uL Abs Eosin 0.25 LAB ABASO % Baso% 1.0 LAB AABASO <0.11 k/uL Abs Baso 0.06 LAB AUNRBC 0 /100 WBC NRBCs 0.0 LAB ABNRBC <0.01 k/uL Absolute nRBC <0.01 LAB DTYP DTYPE Auto Diff Performed By: #### CBCDIF, CMP, LIPNF, TSH #### [facility] [address] [place], [place] [address] COMP METABOLIC PANEL Collected: 04/08/2018 Status: F Source: [facility] [facility] 10:46 AM [facility] REPOSITORY TYPE CODE TESTS RESULT OUT OF REFERENCE UNITS RANGE LAB TP 6.3-8.0 g/dL Protein, Total 6.8 LAB ALB 3.9-4.9 g/dL Albumin 4.2 LAB CA 8.5-10.2 mg/dL Calcium, Total 9.6 LAB TBIL 0.2-1.3 mg/dL Bilirubin, Total 0.6 LAB ALKP 34-123 U/L Alkaline Phosphatase 106 LAB AST 13-35 U/L AST 20 LAB GLU 74-99 mg/dL Glucose 89 Result Comment: The [place] Diabetes Association (ADA) provides guidance for cutoff values for fasting glucose and random glucose. The ADA defines fasting as no caloric intake for at least 8 hours. Fas ting plasma glucose results between 100 to 125 mg/dL indicate increased risk for diabetes (prediabetes). Fasting plasma glucose results greater than or equal to 126 mg/dL meet the criteria for diagnosis of diabetes. In the absence of unequivocal hyperglycemia, results should be confirmed by repeat testing. In a patient with classic symptoms of hyperglycemia or hyperglycemic crisis, random plasma glucose results greater than or equal to 200 mg/dL meet the criteria for diagnosis of diabetes. Reference: Standards of Medical Care in Diabetes 2016, [place] [employer] Association. Diabetes Care. 2016.39(Suppl 1). LAB BUN 7-21 mg/dL BUN 17 LAB CRET 0.58-0.96 mg/dL Creatinine 0.81 LAB NA 136-144 mmol/L Sodium 141 LAB K 3.7-5.1 mmol/L Potassium 3.7 LAB CL 97-105 mmol/L Chloride 101 LAB CO2 22-30 mmol/L CO2 24 LAB AGAP 9-18 mmol/L Anion Gap 16 LAB ALT 7-38 U/L ALT 11 LAB GFRAA eGFR- Amer. >60 LAB GFRNAA . eGFR-All Other Races >60 Result Comment: eGFR (Estimated GFR) Units of measure: mL/min/1.73 meters squared eGFR is derived from the reexpressed MDRD Study equation using the following parameters: serum creatinine, age, gender and race. The creatinine assay has been calibrated to be traceable to IDMS. An eGFR <60 mL/min/1.73m2 for >3 months is consistent with chronic kidney disease. Refer to KDOQI guidelines for clinical interpretation. In patients with unstable renal function, e.g. those with acute kidney injury, the eGFR may not accurately reflect actual GFR. Performed By: #### CBCDIF, CMP, LIPNF, TSH #### [facility] [address] [place] [id number] LIPID PANEL, NONFAST Collected: 04/08/2018 Status: F Source: [facility] 10:[address] [facility] REPOSITORY TYPE CODE TESTS RESULT OUT OF REFERENCE UNITS RANGE LAB CHOLNF <200 mg/dL Total High Cholesterol NF 252 Result Comment: <200 mg/dL, Desirable 200-239 mg/dL, Borderline high >239 mg/dL, High LAB TRIGNF <150 mg/dL Triglycerides, NF 103 Result Comment: <150 mg/dL, Normal 150-199 mg/dL, Borderline high 200-499 mg/dL, High >499 mg/dL, Very high LAB HDLNF >39 mg/dL HDL Cholesterol, NF 63 Result Comment: 40-59 mg/dL, Acceptable >59 mg/dL, High: Negative risk factor for coronary heart disease <40 mg/dL, Low: Positive risk factor for coronary heart disease LAB LDLNF <100 mg/dL LDL Cholesterol, High NF 168 Result Comment: <100 mg/dL, Optimal 100-129 mg/dL, Near optimal/above optimal 130-159 mg/dL, Borderline high 160-189 mg/dL, High >189 mg/dL, Very high Secondary prevention optimal LDL Cholesterol levels are recommended to be < 70 mg/dL LAB NOHDLN <130 mg/dL High Non HDL Chol, 189 NF Result Comment: <130 mg/dL, Optimal 130-159 mg/dL, Near optimal/above optimal 160-189 mg/dL, Borderline high 190-219 mg/dL, High >219 mg/dL, Very high Secondary prevention optimal non HDL Cholesterol levels are recommended to be < 100 mg/dL LAB VLDLNF <30 mg/dL VLDL Cholesterol, NF 21 LAB TCHDLN <5.10 mg/dL T Chol/HDL Ratio NF 4.00 LAB LDLHDN <2.54 mg/dL LDL/HDL Ratio, NF High 2.67 Result Comment: Reference: 1. National Cholesterol Education Program ATP III Guideline At-A-Glance Quick Desk Reference: National Heart, Lung, and Blood [place]. National Institutes of Health. 2001: NIH Publication No. 01-3305. 2. An International Atherosclerosis Society position paper: global recommendations for the management of dyslipidemia: executive summary, Atherosclerosis. 2014: 232(2):410-413. Performed By: #### CBCDIF, CMP, LIPNF, TSH #### [facility] [address], [place] [address] TSH Collected: 04/08/2018 Status: F Source: [facility] 10:[address] [facility] REPOSITORY TYPE CODE TESTS RESULT OUT OF RANGE REFERENCE UNITS LAB TSH 0.400-5.500 uU/mL TSH 3.030 Performed By: #### CBCDIF, CMP, LIPNF, TSH #### [facility] [address] [place], [place] [address] PROGRESS Observed: 04/08/2018 Status: COMPLETED Source: [facility] 10:[address] [facility] REPOSITORY HNO ID: [id number] Author: Darlin West (Javy) Deepak Service: (none) Author Type: Nurse Practitioner Type: Progress Notes Filed: 04/08/2018 1:18 PM Note Text: Chief Complaint Patient presents with: Hypertension: patient states blood pressure has been elevated HPI Silvia Bergman is a 83 year old female who presents here today for Above Complaints. Checking BP daily with wrist unit, has not felt for past 5-6 days sx include, poor appetite, nausea, no vomiting, DUARTE top of head, now localized to left maxillary sinus. BP earlier today noted below. She notes she is scheduled for nerve ablation this coming Wednesday. Apt for CPE with PCP 04/12/18. She also notes she was on Cymbalta 20 for about 6 months, for her back per Dr. Pérez however she stopped this on 03/22/18 cold turkey due to bad vivid dreams. She denies any vertigo, no numbness or tingling, or vision changes. No missed doses of her BP medications which we have reviewed. Reports her BP was 135/70's in Dr. Pérez's office 10 days ago. Admits upsetting week, tearful, weepy, sister with Dementia- struggling and upsetting to patient then worried about her BP. Reports was checking her BP every 30 minutes yesterday. Last 6 Encounter BP Readings: Date: BP: 04/08/2018 150/72 04/09/2017 142/70 04/08/2017 155/75 07/16/2016 140/82 05/05/2016 148/84 04/14/2016 130/70 Gemma (Rn) Geovany ? 04/08/18 8:50 AM Note Reason for call: Increased BP ? Conferenced to Edward in appt center for appt. Appt made for 939 with Darlin Sotelo CNP. ? Reason for Disposition - [1] Systolic BP >= 200 OR Diastolic >= 120 AND [2] having NO cardiac or neurologic symptoms Answer Assessment - Initial Assessment Questions 1. BLOOD PRESSURE: 181/96 10 mins ago (has not taken morning medications yet); left wrist Repeat now: 201/115 left wrist Repeat after 10 mins: 201/92 2. ONSET: Has been running high x 2-3 days (normally doesn't check in the morning); BP in afternoons running 140's/mid 80's usually but elevated with diastolic in 90's for several days) 3. HOW: ) Wrist cuff (5-10 years old) 4. HISTORY: X 10-15 years 5. MEDICATIONS: Verapamil BID, metoprolol, lisinopril. Hasn't missed any doses of BP meds but has not taken yet today. 6. OTHER SYMPTOMS: Headache 4/10 x 24 hrs, feels off but no dizziness or lightheadedness, is mildly nauseous. 7. : N/a Feeling more stressed since discontinuing cymbalta 20 mg 10 days ago (per pain management, no taper done). Per [email or web address] sx are consistent with cymbalta withdrawal). Protocols used: HIGH BLOOD [id number] ? Past medical history, appointments, medications, allergies reviewed. Previous Medical History PAST MEDICAL HISTORY Diagnosis Date - Disc disease, degenerative, lumbar or lumbosacral - Diverticulosis of colon (without mention of hemorrhage) - Essential hypertension, benign - GERD (gastroesophageal reflux disease) - Internal hemorrhoids without mention of complication - Lumbosacral radiculopathy - Lumbosacral spinal stenosis - Mitral valve disorders(424.0) - Neurogenic claudication due to lumbar spinal stenosis 01/19/2012 - Other acute pericarditis - Other and unspecified hyperlipidemia - Palpitations - Unspecified atrial fibrillation (HCC) - Venous insufficiency 07/23/2011 Previous Surgical History PAST SURGICAL HISTORY Procedure Laterality Date - CATARACT EXT; EYEONICS IOL SYS 2010 bilateral - COLONOSCOP W/ OR W/O BRSH SPEC 10/28/2005 Colonoscopy - LIGATE FALLOPIAN TUBE Tubal ligation - REM LESIO TRUNK,ARM,LEG 1.1 -2.0CM 11/24/06 Exc. left mid abd lesion - REMOVAL GALLBLADDER 1968 Cholecystectomy - TOTAL ABDOM HYSTERECTOMY 1982 Hysterectomy, MELO (without BSO) Family History FAMILY HISTORY Problem Relation Age of Onset - other (brain tumor [Other]) Father - Hypertension Mother - other (neuropathy/lower leg [Other]) Mother - Diabetes Mother diabetic peripheral neuropathy - Hypertension Sister Patient Allergies ALLERGIES Allergen Reactions - Hydrocodone-Acetami* GI Upset Current Medications Current Outpatient Prescriptions on File Prior to Visit: lisinopril (ZESTRIL, PRINIVIL) 40 mg tablet Take 1 tablet by mouth once daily. verapamil SR (CALAN SR) 240 mg CR tablet Take 1 tablet by mouth twice daily. metoprolol succinate ER (TOPROL XL) 100 mg Tb24 Take 1 tablet by mouth once daily. famotidine (PEPCID) 40 mg tablet Take 1 tablet by mouth once daily. meloxicam (MOBIC) 7.5 mg tablet Take 7.5 mg by mouth once daily. traMADol (ULTRAM) 50 mg tablet Take 1 tablet by mouth every 6 hours as needed for Pain. estradiol (ESTRACE) 0.01 % (0.1 mg/gram) vaginal cream Use small amount at vaginal opening 2-3 nights per week cholecalciferol(VITAMIN D 1,000 UNIT CAP) Take one daily MULTI-VITAMIN TAB Take one(1) tablet daily. verapamil SR (CALAN SR) 240 mg CR tablet Take 1 tablet by mouth twice daily. atorvastatin (LIPITOR) 10 mg tablet Take 1 tablet by mouth once daily. No current facility-administered medications on file prior to visit. Social History Social History Marital status: Spouse name: Flor Years of education: 12 Number of children: 4 Occupational History Occupation Employer Comment RETIRED Social History Main Topics Smoking status: Never Smoker Smokeless tobacco: Never Used Alcohol use: No Drug use: No Sexual activity: No Review of Symptoms REVIEW OF SYSTEMS GENERAL: No weight loss, malaise or fevers HEENT: No changes in hearing or vision, no nose bleeds or other nasal problems, Head Positive for headache top of head and around left eye NECK: Negative for lumps, goiter, pain and significant neck swelling RESPIRATORY: Negative for cough, hemoptysis, wheezing, COPD, dyspnea or shortness of breath CARDIOVASCULAR: Negative for chest pain, leg swelling, hypertension, CHF or palpitations GI: Positive for nausea . No vomiting. Keeping diet light. EXAM: BP 150/72 Pulse 68 Temp 37.3 ?C (99.2 ?F) (Tympanic) Resp 16 Wt 67.1 kg (148 lb) BMI 25.58 kg/m? General Appearance: Well appearing, alert, in no acute distress, well-hydrated, well nourished.. Eyes: Anicteric sclera. Pupils are equally round and reactive to light. Extraocular movements are intact. . Oropharynx: Lips, mucosa, and tongue normal, teeth and gums normal, oropharynx normal. Neck: Supple, no adenopathy; thyroid symmetric, normal size, no bruits. Lungs: lungs clear to auscultation. No wheezing, rhonchi, rales. Heart: RRR without murmur, gallop, or rubs. No ectopy. Abdomen: Normal abdominal exam, Abdomen soft, non-tender. Bowel sounds normal. No masses, organomegaly. Extremities: No deformities, edema, skin discoloration, clubbing or cyanosis. Good capillary refill. . Health Maintenance List DTAP,TDAP,TD(2 - Tdap) due on 02/04/2009 DIABETES SCREEN due on 05/20/2020 BONE DENSITY Completed ADULT PREVNAR-13 Completed INFLUENZA Completed PNEUMOVAX AGE 65 AND OVER WITH 5YR LOOKBACK Completed ASSESSMENT/PLAN: 1. Essential hypertension, benign - ICD9: 401.1, ICD10: I10 (primary diagnosis) - suboptimal control - Add HCTZ - Check labs as ordered - Recommend home blood pressure monitoring, to bring results in on next visit, however, recommend she not focus on her BP and only check few times between now and upcoming apt. - Recheck in 4 days, sooner should new symptoms or problems arise. - Goal of BP <130/80 - HYDROCHLOROTHIAZIDE 12.5 MG CAPSULE - COMP METABOLIC PANEL - CBC + DIFF - TSH BLD 2. Adjustment reaction with anxiety and depression - ICD9: 309.28, ICD10: F43.23 -Will add Lexapro due to depression and anxiety. Reviewed potential side effects, onset of action. - ESCITALOPRAM 10 MG TABLET 3. Hyperlipidemia LDL goal <130 - ICD9: 272.4, ICD10: E78.5 -Lab order - LIPID PANEL, NONFASTING Darlin Sotelo, MSN GOVERNMENT SALES MANAGER.CLINICAL TRIALS NURSE CNOV Observed: 04/08/2018 Status: COMPLETED Source: [facility] 9:[address] [facility] REPOSITORY Office Visit (FAMPWS) SILVIA BERGMAN ([id number]) 1935 F NFR Date Time Provider Department 04/08/18 9:40 AM DARLIN SOTELO (INSIDE PHONE SALES) FAMPWS During your visit today, we recorded the following information about you: Temperature Pulse Respiration Blood pressure 99.2 degrees 68/minute 16/minute 150/72 Weight 67.1 kg Darlin Sotelo, MSN GOVERNMENT SALES MANAGER.CLINICAL TRIALS NURSE 04/08/2018 1:18 PM Signed Chief Complaint Patient presents with: Hypertension: patient states blood pressure has been elevated HPI Silvia Bergman is a 83 year old female who presents here today for Above Complaints. Checking BP daily with wrist unit, has not felt for past 5-6 days sx include, poor appetite, nausea, no vomiting, DUARTE top of head, now localized to left maxillary sinus. BP earlier today noted below. She notes she is scheduled for nerve ablation this coming Wednesday. Apt for CPE with PCP 04/12/18. She also notes she was on Cymbalta 20 for about 6 months, for her back per Dr. Pérez however she stopped this on 03/22/18 cold turkey due to bad vivid dreams. She denies any vertigo, no numbness or tingling, or vision changes. No missed doses of her BP medications which we have reviewed. Reports her BP was 135/70's in Dr. Pérez's office 10 days ago. Admits upsetting week, tearful, weepy, sister with Dementia- struggling and upsetting to patient then worried about her BP. Reports was checking her BP every 30 minutes yesterday. Last 6 Encounter BP Readings: Date: BP: 04/08/2018 150/72 04/09/2017 142/70 04/08/2017 155/75 07/16/2016 140/82 05/05/2016 148/84 04/14/2016 130/70 Gemma (Rn) Geovany ? 04/08/18 8:50 AM Note Reason for call: Increased BP ? Conferenced to Edward in appt center for appt. Appt made for 09 with Darlin Sotelo CNP. ? Reason for Disposition - [1] Systolic BP >= 200 OR Diastolic >= 120 AND [2] having NO cardiac or neurologic symptoms Answer Assessment - Initial Assessment Questions 1. BLOOD PRESSURE: 181/96 10 mins ago (has not taken morning medications yet); left wrist Repeat now: 201/115 left wrist Repeat after 10 mins: 201/92 2. ONSET: Has been running high x 2-3 days (normally doesn't check in the morning); BP in afternoons running 140's/mid 80's usually but elevated with diastolic in 90's for several days) 3. HOW: ) Wrist cuff (5-10 years old) 4. HISTORY: X 10-15 years 5. MEDICATIONS: Verapamil BID, metoprolol, lisinopril. Hasn't missed any doses of BP meds but has not taken yet today. 6. OTHER SYMPTOMS: Headache 4/10 x 24 hrs, feels off but no dizziness or lightheadedness, is mildly nauseous. 7. : N/a Feeling more stressed since discontinuing cymbalta 20 mg 10 days ago (per pain management, no taper done). Per [email or web address] sx are consistent with cymbalta withdrawal). Protocols used: HIGH BLOOD [id number] ? Past medical history, appointments, medications, allergies reviewed. Previous Medical History PAST MEDICAL HISTORY Diagnosis Date - Disc disease, degenerative, lumbar or lumbosacral - Diverticulosis of colon (without mention of hemorrhage) - Essential hypertension, benign - GERD (gastroesophageal reflux disease) - Internal hemorrhoids without mention of complication - Lumbosacral radiculopathy - Lumbosacral spinal stenosis - Mitral valve disorders(424.0) - Neurogenic claudication due to lumbar spinal stenosis 01/19/2012 - Other acute pericarditis - Other and unspecified hyperlipidemia - Palpitations - Unspecified atrial fibrillation (HCC) - Venous insufficiency 07/23/2011 Previous Surgical History PAST SURGICAL HISTORY Procedure Laterality Date - CATARACT EXT; EYEONICS IOL SYS 2010 bilateral - COLONOSCOP W/ OR W/O BRSH SPEC 10/28/2005 Colonoscopy - LIGATE FALLOPIAN TUBE Tubal ligation - REM LESIO TRUNK,ARM,LEG 1.1 -2.0CM 11/24/06 Exc. left mid abd lesion - REMOVAL GALLBLADDER 1968 Cholecystectomy - TOTAL ABDOM HYSTERECTOMY 1982 Hysterectomy, MELO (without BSO) Family History FAMILY HISTORY Problem Relation Age of Onset - other (brain tumor [Other]) Father - Hypertension Mother - other (neuropathy/lower leg [Other]) Mother - Diabetes Mother diabetic peripheral neuropathy - Hypertension Sister Patient Allergies ALLERGIES Allergen Reactions - Hydrocodone-Acetami* GI Upset Current Medications Current Outpatient Prescriptions on File Prior to Visit: lisinopril (ZESTRIL, PRINIVIL) 40 mg tablet Take 1 tablet by mouth once daily. verapamil SR (CALAN SR) 240 mg CR tablet Take 1 tablet by mouth twice daily. metoprolol succinate ER (TOPROL XL) 100 mg Tb24 Take 1 tablet by mouth once daily. famotidine (PEPCID) 40 mg tablet Take 1 tablet by mouth once daily. meloxicam (MOBIC) 7.5 mg tablet Take 7.5 mg by mouth once daily. traMADol (ULTRAM) 50 mg tablet Take 1 tablet by mouth every 6 hours as needed for Pain. estradiol (ESTRACE) 0.01 % (0.1 mg/gram) vaginal cream Use small amount at vaginal opening 2-3 nights per week cholecalciferol(VITAMIN D 1,000 UNIT CAP) Take one daily MULTI-VITAMIN TAB Take one(1) tablet daily. verapamil SR (CALAN SR) 240 mg CR tablet Take 1 tablet by mouth twice daily. atorvastatin (LIPITOR) 10 mg tablet Take 1 tablet by mouth once daily. No current facility-administered medications on file prior to visit. Social History Social History Marital status: Spouse name: Flor Years of education: 12 Number of children: 4 Occupational History Occupation Employer Comment RETIRED Social History Main Topics Smoking status: Never Smoker Smokeless tobacco: Never Used Alcohol use: No Drug use: No Sexual activity: No Review of Symptoms REVIEW OF SYSTEMS GENERAL: No weight loss, malaise or fevers HEENT: No changes in hearing or vision, no nose bleeds or other nasal problems, Head Positive for headache top of head and around left eye NECK: Negative for lumps, goiter, pain and significant neck swelling RESPIRATORY: Negative for cough, hemoptysis, wheezing, COPD, dyspnea or shortness of breath CARDIOVASCULAR: Negative for chest pain, leg swelling, hypertension, CHF or palpitations GI: Positive for nausea . No vomiting. Keeping diet light. EXAM: BP 150/72 Pulse 68 Temp 37.3 ?C (99.2 ?F) (Tympanic) Resp 16 Wt 67.1 kg (148 lb) BMI 25.58 kg/m? General Appearance: Well appearing, alert, in no acute distress, well-hydrated, well nourished.. Eyes: Anicteric sclera. Pupils are equally round and reactive to light. Extraocular movements are intact. . Oropharynx: Lips, mucosa, and tongue normal, teeth and gums normal, oropharynx normal. Neck: Supple, no adenopathy; thyroid symmetric, normal size, no bruits. Lungs: lungs clear to auscultation. No wheezing, rhonchi, rales. Heart: RRR without murmur, gallop, or rubs. No ectopy. Abdomen: Normal abdominal exam, Abdomen soft, non-tender. Bowel sounds normal. No masses, organomegaly. Extremities: No deformities, edema, skin discoloration, clubbing or cyanosis. Good capillary refill. . Health Maintenance List DTAP,TDAP,TD(2 - Tdap) due on 02/04/2009 DIABETES SCREEN due on 05/20/2020 BONE DENSITY Completed ADULT PREVNAR-13 Completed INFLUENZA Completed PNEUMOVAX AGE 65 AND OVER WITH 5YR LOOKBACK Completed ASSESSMENT/PLAN: 1. Essential hypertension, benign - ICD9: 401.1, ICD10: I10 (primary diagnosis) - suboptimal control - Add HCTZ - Check labs as ordered - Recommend home blood pressure monitoring, to bring results in on next visit, however, recommend she not focus on her BP and only check few times between now and upcoming apt. - Recheck in 4 days, sooner should new symptoms or problems arise. - Goal of BP <130/80 - HYDROCHLOROTHIAZIDE 12.5 MG CAPSULE - COMP METABOLIC PANEL - CBC + DIFF - TSH BLD 2. Adjustment reaction with anxiety and depression - ICD9: 309.28, ICD10: F43.23 -Will add Lexapro due to depression and anxiety. Reviewed potential side effects, onset of action. - ESCITALOPRAM 10 MG TABLET 3. Hyperlipidemia LDL goal <130 - ICD9: 272.4, ICD10: E78.5 -Lab order - LIPID PANEL, NONFASTING Darlin Sotelo, MSN GOVERNMENT SALES MANAGER.CLINICAL TRIALS NURSE Referring Provider: SELF [200] Allergies As of Date: 04/08/2018 Noted Allergy Reaction HYDROCODONE-ACETAMINOPHEN 02/25/2012 8 - GI Upset Date Reviewed: 04/08/2018 Reviewed by: Fransico Jarquin LUMBER TALLIER - Fully Assessed Reason for Visit: Hypertension [168] Cmt: patient states blood pressure has been elevated Primary Visit Diagnosis:Essential hypertension, benign [I10] Other Visit Diagnoses:Adjustment reaction with anxiety and depression [F43.23] Hyperlipidemia LDL goal <130 [E78.5] Order(s):Hydrochlorothiazide 12.5 mg capsuleTake 1 capsule by mouth once daily.Disp: 30 capsuleRfl: 12 escitalopram oxalate (LEXAPRO) 10 mg tabletTake 1 tablet by mouth once daily.Disp: 30 tabletRfl: 1 LIPID PANEL, NONFASTING [SQLIPNF] Order #: [id number] FUTURE COMP METABOLIC PANEL [SQCMP] Order #: [id number] FUTURE CBC + DIFF [SQCBCDIF] Order #: [id number] FUTURE TSH BLD [SQTSH] Order #: [id number] FUTURE Prescriptions as of 04/08/2018 Sig: LISINOPRIL 40 MG TABLET Take 1 tablet by mouth once d* VERAPAMIL ER (SR) 240 MG TABL* Take 1 tablet by mouth twice * METOPROLOL SUCCINATE ER 100 M* Take 1 tablet by mouth once d* FAMOTIDINE 40 MG TABLET Take 1 tablet by mouth once d* MELOXICAM 7.5 MG TABLET Take 7.5 mg by mouth once cuco* TRAMADOL 50 MG TABLET Take 1 tablet by mouth every * ESTRADIOL 0.01% (0.1 MG/GRAM)* Use small amount at vaginal o* VITAMIN D3 1,000 UNIT CAPSULE Take one daily MULTI-VITAMIN TABLET Take one(1) tablet daily. 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] INVALID FOR* Unspecified vitamin D deficiency [E55.9] INVALID FOR*06/04/2015 Irritated//Inflamed Seborrheic Keratosis [L82.0]INVALID FOR*06/04/2015 Other Seborrheic Keratoses [L82.1] INVALID FOR*06/04/2015 Solar Lentigines [L81.4] INVALID FOR*06/04/2015 Actinic Damage///Sun-damaged skin [L57.8] INVALID FOR*06/04/2015 Venous insufficiency [I87.2] INVALID FOR* Neurogenic claudication due to lumbar spinal st*INVALID FOR* Rectal bleeding [K62.5] INVALID FOR*06/04/2015 Skin cancer [C44.90] INVALID FOR* Trigger ring finger of left hand [M65.342] INVALID FOR* 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 ESCITALOPRAM 10 MG TABLET 30 t* 1 04/08/2018 Route: ORAL Sig: Take 1 tablet by mouth once daily. Medications Discontinued During This Encounter verapamil SR (CALAN SR) 240 mg CR ta* 20 t* 0 06/22/2017 04/08/2018 Route: ORAL Sig: Take 1 tablet by mouth twice daily. Disc: Duplicate Entry Encounter Status:Closed by DARLIN SOTELO CNP on 04/08/18 OPERATIVE REPORT Observed: 03/07/2018 Status: F Source: [place] 10:24 AM [facility] REPOSITORY [facility] Medical Records Department [address] [place] [address] Operative Report 03/07/18 1019 MR#: [id number] Acct: [id number] Name: SILVIA BERGMAN Rep #: [id number] : 1935 83 From: Michael Pérez MD PCP: Isaías Royal III, MD Status: [facility] Location: [place] [address] 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 (2) DDD (degenerative disc disease), cervical Status: Chronic Report of Operation Date of Procedure: 03/07/18 Pre-Operative Diagnosis: Cervical spondylosis, cervical degenerative disc disease Post-Operative Diagnosis: Cervical spondylosis, cervical degenerative disc disease Surgery/Procedure Performed:: Right-sided cervical facet steroid injection C4, C5, C6, C7 Description of Surgical Findings:: PROCEDURE: Right-sided cervical facet steroid injection C4, C5, C6, C7 PREOPERATIVE DIAGNOSES: Cervical spondylosis, cervical degenerative disc disease, and cervical facet arthropathy POSTOPERATIVE DIAGNOSES: Cervical spondylosis, cervical degenerative disc disease, and cervical facet arthropathy ANESTHESIA: MAC COMPLICATIONS: None BLOOD LOSS: Minimal PROCEDURE IN DETAIL: History and physical today was reviewed. Risks and benefits of the procedure were explained. The patient understood, agreed to our procedure, and informed consent was obtained. IV inserted per routine protocol. The patient was taken to the operating room, placed in a prone position with a pillow positioned underneath the chest. The neck area was prepped and draped in a sterile fashion using iodine x3. Under fluoroscopy guidance, on AP view, C4 through C7 vertebral bodies were visualized. Under direct visualization fluoroscopy starting on the right C4 ending on the right C7 passing through the C5-C6 using a 25-gauge 3-1/2 inch spinal needle the needle was advanced via the skin the tip of the needle's maneuver and directed towards the epiphyseal junction of each corresponding vertebra once the tip of the needle was at the vicinity of the each corresponding vertebra under direct visualization with fluoroscopy and after repeated negative aspiration a total of 4 cc of preservative-free 0.25% Marcaine with 80 mg of Depo-Medrol were injected in divided doses between those 4 levels, the needles were then removed intact. The patient experienced no signs or symptoms of intrathecal, intravascular injection. The patient experienced no paraesthesia. The procedure was completed without any apparent difficulty, any complication. The patient appeared to tolerate well. Sensory as well as motor exam was unchanged from prior to procedure. ASSESSMENT AND PLAN: This is a 83-year-old Female with cervical spondylosis, cervical degenerative disc disease, and cervical facet arthropathy, status post right- sided cervical facet steroid injection C4 through C7. The patient will continue her current medications. The patient will follow up in approximately 2 weeks fo reevaluation. 03/07/18 1024 <Electronically signed by Michael Pérez MD> Date Michael Pérez MD CC: Isaías Royal III, MD; Michael Pérez Signed CERV SPINE 4 OR 5 Observed: 03/07/2018 Status: F Source: [place] VIEWS 3:43 AM [facility] REPOSITORY [facility] Imaging Services [address] [place] [address] Cerv Spine 4 or 5 Views MR#: [id number] Acct: [id number] Name: SILVIA BERGMAN Rep #: [id number] : 1935 F 83 From: All [place] MD PCP: Isaías Royal III, MD Status: [facility] Study: Cerv Spine 4 or 5 Views Date of Exam: 03/07/18 Exam# [id number] Ordering Dr: Michael Pérez MD PROCEDURE: Right C4-C7 cervical facet block. DATE OF EXAMINATION: March 07, 2018. INDICATION: Female, 83 years old. Chronic neck pain. FLUOROSCOPY TIME (if supplied): (0:14) minutes/seconds. For coned down intraoperative views were obtained. Intraoperative fluoroscopic imaging provided for right C4- C7 facet joint block. RAD/Cerv Spine 4 or 5 Views IMPRESSION: Intraoperative imaging provided for right C4-C7 facet joint block. Electronically Signed: All [place] MD at 9:36 EST Tel [phone], Service support , CC: Isaías Royal III, MD; Michael Pérez Pharmacogeneticist: Signed PROGRESS Observed: 06/09/2017 Status: COMPLETED Source: [facility] 1:[address] [facility] REPOSITORY O ID: [id number] Author: Isaías Royal III Service: (none) Author Type: Physician Type: Progress Notes Filed: 06/09/2017 1:36 PM Note Text: Silvia, Good news?the lipids and other lab results look fine. Recommend a healthy diet with regular physical activity. Same medications. Isaías Royal III, MD, [facility] OPERATIVE REPORT Observed: 05/24/2017 Status: F Source: [place] 12:06 PM [facility] REPOSITORY [facility] Medical Records Department [address] [place] [address] Operative Report 05/24/17 1204 MR#: [id number] Acct: [id number] Name: SILVIA BERGMAN Rep #: [id number] : 1935 82 From: Michael Pérez MD PCP: Isaías Royal III, MD Status: [facility] Location: [place] [address] 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 (2) Lumbosacral radiculitis Status: Chronic Report of Operation Date of Procedure: 05/24/17 Pre-Operative Diagnosis: Lumbosacral radiculopathy, lumbosacral degenerative disc disease, lumbosacral spinal stenosis Post-Operative Diagnosis: Lumbosacral radiculopathy, lumbosacral degenerative disc disease, lumbosacral spinal stenosis Surgery/Procedure Performed:: Caudal epidural steroid injection Description of Surgical Findings:: PROCEDURE: Caudal epidural steroid injection PREOPERATIVE DIAGNOSIS: Lumbosacral radiculopathy, lumbosacral degenerative disc disease, lumbosacral spinal stenosis POSTOPERATIVE DIAGNOSIS: Lumbosacral radiculopathy, lumbosacral degenerative disc disease, lumbosacral spinal stenosis ANESTHESIA: MAC COMPLICATIONS: None BLOOD LOSS: Minimal PROCEDURE IN DETAIL: History and physical today was reviewed. Risks and benefits of the procedure were explained. The patient understood, agreed to our procedure, and informed consent was obtained. IV inserted per routine protocol. The patient was taken to the operating room, placed in a prone position with a pillow positioned underneath the abdomen. The lower back and tailbone area was prepped and draped in a sterile fashion using iodine 3 under fluoroscopy guidance on the lateral view the caudal space was identified skin and subcutaneous tissue anesthetized approximately 3 cc of 1% lidocaine using a 25- gauge regular needle under direct visualization with fluoroscopy on the lateral approach using a 22-gauge 3-1/2 inch spinal needle the needle was advanced via the skin through the sacral hiatus tip of the needle passed through the sacrococcygeal ligament advanced approximately S4 area after negative aspiration for blood or CSF a total of 3 cc of contrast were injected to confirm correct placement of the needle as well as cephalad spread the spread was followed to approximately L5 area after confirmation of AP as well as lateral view and repeated negative aspiration a total of 15 cc of preservative-free 0.125% Marcaine with 80 mg of Depo-Medrol were injected easily the needle was then removed intact patient experienced no sinus symptoms intrathecal or intravascular injection patient experienced no paresthesia the procedure was completed without any apparent difficulty any complication the patient appeared to tolerate well. ASSESSMENT AND PLAN: This is a 82-year-old Female with lumbosacral radiculopathy, lumbosacral degenerative disc disease, lumbosacral spinal stenosis status post caudal epidural steroid injection. The patient will continue her current medications. The patient will follow in approximately 2 weeks for possible repeat of the procedure if indicated. 05/24/17 1206 <Electronically signed by Michael Pérez MD> Date Michael Pérez MD CC: Isaías Royal III, MD; Michael Pérez Signed FLUOR GUIDANCE FOR Observed: 05/23/2017 Status: F Source: [place] [facility] 11:57 PM [facility] RE[facility] Imaging Services [address] [place] [address] Fluor Guidance for Spine Inj MR#: [id number] Acct: [id number] Name: SILVIA BERGMAN Rep #: [id number] : 1935 F 82 From: All [place] MD PCP: Isaías Royal III, MD Status: [facility] Study: Fluor Guidance for Spine Inj Date of Exam: 05/24/17 Exam# [id number] Ordering Dr: Michael Pérez MD PROCEDURE: Sacral block. DATE OF EXAMINATION: May 24, 2017. INDICATION: Female, 82 years old. Low back pain. FLUOROSCOPY TIME (if supplied): (0:15) minutes/seconds intraoperative fluoroscopy was provided for caudal block. The spinal needle is seen overlying the posterior midportion of the sacrum. RAD/Fluor Guidance for Spine Inj IMPRESSION: Intraoperative fluoroscopic service was provided for caudal block. Electronically Signed: All [place] MD at 13:37 EST Tel [phone], Service support , CC: Isaías Royal III, MD; Michael Pérez Pharmacogeneticist: Signed COMP METABOLIC PANEL Collected: 05/20/2017 Status: F Source: [facility] 10:25 AM [facility] REPOSITORY TYPE CODE TESTS RESULT OUT OF REFERENCE UNITS RANGE LAB TP 6.3-8.0 g/dL Protein, Total 6.7 LAB ALB 3.9-4.9 g/dL Albumin 4.0 LAB CA 8.5-10.2 mg/dL Calcium, Total 9.1 LAB TBIL 0.2-1.3 mg/dL Bilirubin, Total 0.5 LAB ALKP 32-117 U/L Alkaline Phosphatase 72 LAB AST 13-35 U/L AST 20 LAB GLU 74-99 mg/dL Low Glucose 71 Result Comment: The [place] Diabetes Association (ADA) provides guidance for cutoff values for fasting glucose and random glucose. The ADA defines fasting as no caloric intake for at least 8 hours. Fas ting plasma glucose results between 100 to 125 mg/dL indicate increased risk for diabetes (prediabetes). Fasting plasma glucose results greater than or equal to 126 mg/dL meet the criteria for diagnosis of diabetes. In the absence of unequivocal hyperglycemia, results should be confirmed by repeat testing. In a patient with classic symptoms of hyperglycemia or hyperglycemic crisis, random plasma glucose results greater than or equal to 200 mg/dL meet the criteria for diagnosis of diabetes. Reference: Standards of Medical Care in Diabetes 2016, [place] [employer] Association. Diabetes Care. 2016.39(Suppl 1). LAB BUN 7-21 mg/dL BUN High 22 LAB CRET 0.58-0.96 mg/dL Creatinine 0.88 LAB NA 136-144 mmol/L Sodium 139 LAB K 3.7-5.1 mmol/L Potassium 3.7 LAB CL 97-105 mmol/L Chloride 100 LAB CO2 22-30 mmol/L CO2 24 LAB AGAP 9-18 mmol/L Anion Gap 15 LAB ALT 7-38 U/L ALT 9 LAB GFRAA eGFR- Amer. >60 LAB GFRNAA . eGFR-All Other Races >60 Result Comment: eGFR (Estimated GFR) Units of measure: mL/min/1.73 meters squared eGFR is derived from the reexpressed MDRD Study equation using the following parameters: serum creatinine, age, gender and race. The creatinine assay has been calibrated to be traceable to IDMS. An eGFR <60 mL/min/1.73m2 for >3 months is consistent with chronic kidney disease. Refer to KDOQI guidelines for clinical interpretation. In patients with unstable renal function, e.g. those with acute kidney injury, the eGFR may not accurately reflect actual GFR. Performed By: #### CMP, LIPB #### [facility] [address] [place], [place] [address] LIPID PANEL, BASIC Collected: 05/20/2017 Status: F Source: [facility] 10:25 AM [facility] REPOSITORY TYPE CODE TESTS RESULT OUT OF REFERENCE UNITS RANGE LAB CHOL <200 mg/dL Cholesterol 177 Result Comment: <200 mg/dL, Desirable 200-239 mg/dL, Borderline high >239 mg/dL, High LAB TRIGLY <150 mg/dL Triglyceride 117 Result Comment: <150 mg/dL, Normal 150-199 mg/dL, Borderline high 200-499 mg/dL, High >499 mg/dL, Very high LAB HDL >39 mg/dL HDL-Cholesterol 55 Result Comment: 40-59 mg/dL, Acceptable >59 mg/dL, High: Negative risk factor for coronary heart disease <40 mg/dL, Low: Positive risk factor for coronary heart disease LAB LDL <100 mg/dL LDL-Cholesterol 99 Result Comment: <100 mg/dL, Optimal 100-129 mg/dL, Near optimal/above optimal 130-159 mg/dL, Borderline high 160-189 mg/dL, High >189 mg/dL, Very high Secondary prevention optimal LDL Cholesterol levels are recommended to be < 70 mg/dL LAB NONHDL <130 mg/dL Non HDL Cholesterol 122 Result Comment: <130 mg/dL, Optimal 130-159 mg/dL, Near optimal/above optimal 160-189 mg/dL, Borderline high 190-219 mg/dL, High >219 mg/dL, Very high Secondary prevention optimal non HDL Cholesterol levels are recommended to be < 100 mg/dL LAB FT hrs Fasting Time 1 LAB VLDL <30 mg/dL VLDL Cholesterol 23 LAB TCHDL <5.10 TC:HDL Ratio 3.22 LAB LDLHDL <2.54 LDL:HDL Ratio 1.80 Result Comment: Reference: 1. National Cholesterol Education Program ATP III Guideline At-A-Glance Quick Desk Reference: National Heart, Lung, and Blood [place]. National Institutes of Health. 2001: NIH Publication No. 01-3305. 2. An International Atherosclerosis Society position paper: global recommendations for the management of dyslipidemia: executive summary, Atherosclerosis. 2014: 232(2):410-413. Performed By: #### CMP, LIPB #### [facility] [address] [place], [place] [address] CARDIOLOGY VISIT Observed: 05/10/2017 Status: F Source: [place] [facility] 2:20 PM [facility] REPOSITORY [facility] [address] [place] [address] OFFICE VISIT Date of Service: 05/10/17 MR#: [id number] Acct: [id number] Name: SILVIA BERGMAN Rep #: [id number] : 1935 Provider: JAVY Enriquez Age/Sex: 82/F Location: [facility] Status: Signed HPI HPI Details: SILVIA BERGMAN, is a 82 F who presents to the office today for a cardiovascular outpatient follow-up. Patient is a history of paroxysmal atrial fibrillation diagnosed in March 2017, hypertension, and hyperlipidemia. She is a non-smoker, nondrinker, and nondiabetic. Patient presented to [facility] in March 2017 with palpitations and was being treated for dehydration and diarrhea. She was found to be in atrial fibrillation with RVR. She received IV Cardizem and converted to normal sinus rhythm. Her EKG revealed inferolateral ST segment depression and patient was noted to have substernal chest pressure. She was hypokalemic and received potassium replacement. Patient underwent a echocardiogram that showed a normal LV function and an RVSP of 36 mmHg. Her exercise stress test was negative and showed a preserved ejection fraction. Her cardiac enzymes remained negative. She was restarted on the home medication. Anticoagulation was not started at that time. She ultimately was discharged home. Pt. denies chest, arm, jaw, or neck discomfort. Her exercise tolerance is stable though decreased d/t back pain. Pt. denies symptoms of CHF, palpitations, lightheadedness, dizziness, near syncope, or syncopal episodes. Pt. denies edema or claudication issues. Pt. denies orthopnea, PND, fever, chills, blood in urine, blood in stool, myalgia, or unexplainable fatigue. 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 Accompanied by: Is patient in pain?: Yes (low back, ache) Pain scale (1-10): 5 Allergies codeine Adverse Reaction (Verified 04/21/17 08:40) Upset Stomach Medications Cholecalciferol (VIT D3) [Vitamin D3] 1,000 unit PO DAILY 01/31/15 [History Confirmed 05/10/17] Famotidine 40 mg PO DAILY 01/31/15 [History Confirmed 05/10/17] Lisinopril 40 mg PO DAILY 01/31/15 [History Confirmed 05/10/17] Metoprolol Succinate [Toprol Xl] 100 mg PO DAILY 01/31/15 [History Confirmed 05/10/17] Multivitamins,Therapeutic [Multivitamin] 1 tab PO DAILY 01/31/15 [History Confirmed 05/10/17] Verapamil [Calan Sr] 240 mg PO BID 01/31/15 [History Confirmed 05/10/17] Acetaminophen [Tylenol] 500 - 1,000 mg PO Q6H PRN PRN 10/25/15 [History Confirmed 05/10/17] TraMADol [Ultram] 50 mg PO Q6H PRN PRN 10/25/15 [History Confirmed 05/10/17] Calcium Carbonate/Vitamin D3 [Calcium 500 mg Chewable Tablet] 1 ea PO BID 01/01/16 [History Confirmed 05/10/17] Atorvastatin Calcium 10 mg PO DAILY #30 tab 04/02/17 [Rx Confirmed 05/10/17] Meloxicam 7.5 mg PO DAILY 04/26/17 [History Confirmed 05/10/17] estradiol 0.01% (0.1 mg/gram) vaginal cream 1 g VAGINAL QWEEK g 05/10/17 [History Confirmed 05/10/17] Ejection fraction %: 60 to 64 PFSH Medical History Lumbar facet arthropathy (Chronic) Lumbosacral spondylosis (Chronic) Degeneration of lumbosacral intervertebral disc (Chronic) HTN (hypertension) (Chronic) Lumbosacral radiculitis (Chronic) Surgical History History of cholecystectomy (Chronic) History of hysterectomy (Chronic) Family History Sister Alzheimer's disease Social History Smoking Status: Never smoker alcohol intake: never substance use type: does not use caffeine: Yes Type: tea what type of physical activity do you participate in: none seatbelt use: always do you feel safe at home: Yes ROS Const Const: Negative for fatigue, weakness, body ache, fever(s) or chills ENT ENT: Negative for dizziness Cardio Chest Pain: No Palpitations: Positive for No Edema: None Muscle aches with walking: None Resp Respiratory: Negative for SOB with activity, SOB at rest, SOB orthopnea\SOB lying down or paroxysmal nocturnal dyspnea GI GI: Negative nausea, black,tarry stools, bright, red blood in stools or vomiting blood/hematemesis : Negative for hematuria or frequent nighttime urination/ nocturia Musc Musc: Negative for muscle aches/ myalgia Neuro Neuro: Negative for weakness, Negative for dizziness, Negative for lightheadedness, Negative for near syncope, Negative for syncope, Negative for orthostatic symptoms Endo Endo: Negative for fatigue Cardiology Exam Const Appearance: cooperative, healthy appearing, comfortable and no acute distress Orientation: alert, awake and oriented x3 Head Head: normal to inspection Mouth: oral mucosae normal Neck Neck: no JVD and normal visual inspection Carotids: normal carotid upstroke Chest Chest inspection: normal inspection of the chest and normal respiratory effort Auscultation: Bilateral: Clear to Auscultation Cardio Rate: regular rate Rhythm: regular rhythm Heart sounds: S1 normal and S2 normal; negative rub or gallop GI GI: normal to inspection Neuro General: alert, awake, oriented x3 and CN's II-XI intact bilaterally Skin Skin: no rashes or lesions noted Extremities Pulses: Normal: Right Posterior Tibial Pulse, Left Posterior Tibial Pulse, Right Radial Pulse, Left Radial Pulse Lower Extremity Edema: None: Bilateral Psych Psychological: normal affect Assessment AND Plan 1. Paroxysmal atrial fibrillation I48.0 Plan - TRUMAN Hamm Patient appears to maintain regular rhythm. Her rate is well controlled. At this time we will hold off on oral anticoagulation. Patient was instructed to contact our office if she notices any changes or concerning symptoms. If there is any concern regarding her heart rhythm, we can consider EKG or continuous Holter monitor evaluation. 2. Essential hypertension I10 Plan - TRUMAN Hamm Patient blood pressure on the high end of normal range. She was asked to continue to monitor her blood pressure and contact our office if she notices it to increase. We will not make any medication regimen changes. We will continue to monitor this. 3. Mixed hyperlipidemia E78.2 Plan - TRUMAN Hamm Patient states this is being monitored by primary care physician. Initially post discharge when starting statin medication she noted some neck pain. She stopped her statin for 1 week and resumed it. She is currently been taking it for 3 weeks without any adverse symptoms. We will continue current cholesterol-lowering medication. Plan Detail Additional Comments - TRUMAN Hamm Discussed the above patient with Dr. Deshpande, he agrees with the plan of care. Thank you for allowing us to participate in the patients plan of care, if you have any questions please do not hesitate to call. This note was generated using a voice recognition system and there may be incorrect words, spelling or punctuation that were not noted when reviewing the office note prior to saving. Follow Up 6 Months (DJN) Coding Level of Care Code Off vis,est,level 3 Diagnoses Paroxysmal atrial fibrillation I48.0 Essential hypertension I10 Hypertension type: essential hypertension Mixed hyperlipidemia E78.2 Hyperlipidemia type: mixed hyperlipidemia Coding Level of Care Code Off vis,est,level 3 Diagnoses Paroxysmal atrial fibrillation I48.0 Essential hypertension I10 Hypertension type: essential hypertension Mixed hyperlipidemia E78.2 Hyperlipidemia type: mixed hyperlipidemia 05/10/17 0955 <Electronically signed by Rashad Enriquez NP-C> Date Rashad Enrqiuez INSIDE PHONE SALES-C 05/10/17 1420<Electronically signed by Diony Deshpande MD> Cosigner Signature: Date (if applicable) Diony Deshpande MD CC: Isaías Royal III, MD OPERATIVE REPORT Observed: 04/26/2017 Status: F Source: [place] 9:49 AM [facility] REPOSITORY [facility] Medical Records Department [address] [place] [address] Operative Report 04/26/1746 MR#: [id number] Acct: [id number] Name: SILVIA BERGMAN Rep #: [id number] : 1935 82 From: Michael Pérez MD PCP: Isaías Royal III, MD Status: [facility] Location: [facility] 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 (2) Lumbar facet arthropathy Status: Chronic (3) Lumbosacral spondylosis Status: Chronic Report of Operation Date of Procedure: 04/26/17 Pre-Operative Diagnosis: Lumbosacral spondylosis, lumbosacral degenerative disc disease, lumbar facet arthropathy Post-Operative Diagnosis: Lumbosacral spondylosis, lumbosacral degenerative disc disease, lumbar facet arthropathy Surgery/Procedure Performed:: Left-sided radiofrequency ablation of the medial branch L3-L4 L5-S1 Description of Surgical Findings:: PROCEDURE: Left-sided radiofrequency ablation of the medial branch L3, L4, L5, S1 PREOPERATIVE DIAGNOSES: Lumbosacral spondylosis, lumbosacral degenerative disc disease, lumbar facet arthropathy POSTOPERATIVE DIAGNOSES: Lumbosacral spondylosis, lumbosacral degenerative disc disease, lumbar facet arthropathy ANESTHESIA: MAC COMPLICATIONS: None BLOOD LOSS: Minimal PROCEDURE IN DETAIL: History and physical today was reviewed. Risks and benefits of procedure explained. The patient understood, agreed to the procedure and informed consent was obtained. IV inserted per routine protocol. The patient was taken to the operating room, placed in the prone position with a pillow positioned underneath the abdomen. The right side of the lower back was prepped and draped in a sterile fashion using iodine x 3. Under fluoroscopy guidance, on an oblique view, the L3 through S1 vertebral bodies were visualized. The skin and subcutaneous tissue was anesthetized with approximately 10 mL of 1% lidocaine using a 25-gauge regular needle. Under direct visualization with fluoroscopy at approximately 25-degree angle, starting on the left L3, ending on the left S1 passing through the L4-L5 using a 20-gauge 15 cm with a 10 mm curved active tip radiofrequency ablation needle the needle passed through the skin. The tip of the needle was maneuvered and directed towards the superior and medial gutter of the transverse process at the vicinity of the medial branch. Once the tip of the needle was in contact with the bone, the needle pulled approximately 2 mm up the bone. The stylet of each needle was then removed. After negative aspiration of blood with CSF and confirmation of AP as well as oblique view, radiofrequency ablation probe was then inserted at each level. Impedance was then recorded at L3 to be 244, at L4 291, at L5 303, at S1 222 ohm. Motor-evoked potential was then initiated to 1.5 volt without any motor response at each corresponding level. The probe was then removed intact and a total of 6 mL preservative- free 1% lidocaine was injected in divided doses between those 4 levels after negative aspiration of blood with CSF. The radiofrequency ablation probe was then reinserted after confirmation of AP, oblique as well as lateral view. Radiofrequency ablation was then initiated to 80 degrees Celsius for 90 seconds at each level. Once concluded, the probe was then removed intact and a total of 6 mL of preservative-free 0.25% Marcaine with 40 mg Depo-Medrol was injected in divided doses between those 4 levels. The needles were then removed intact. The patient experienced no signs or symptoms of intrathecal, intravascular injection. The patient experienced no paraesthesia. The procedure was completed without any apparent difficulty, any complication. The patient appeared to tolerate well. Sensory as well as motor exam was unchanged from prior to procedure. ASSESSMENT AND PLAN: This is a 82-year-old female with lumbosacral spondylosis, lumbosacral degenerative disc disease, lumbar facet arthropathy, status post left-sided radiofrequency ablation of the medial branch L3 through S1. The patient will continue her current medications. The patient will follow up in approximately 2 weeks for reevaluation. 04/26/17 0949 <Electronically signed by Michael Pérez MD> Date Michael Pérez MD CC: Isaías Royal III, MD; Michael Pérez Signed LUMBAR SPINE 2 OR 3 Observed: 04/26/2017 Status: F Source: [place] VIEWS 3:30 AM [facility] REPOSITORY [facility] Imaging Services [address] [place] [address]65 Lumbar Spine 2 or 3 Views MR#: [id number] Acct: [id number] Name: SILVIA BERGMAN Rep #: [id number] : 1935 F 82 From: All Glasgow MD PCP: Isaías Royal III, MD Status: [facility] Study: Lumbar Spine 2 or 3 Views Date of Exam: 04/26/17 Exam# [id number] Ordering Dr: Michael Pérez MD STUDY: X-RAY - LUMBAR SPINE REASON FOR EXAM: Female, 82 years old. Radiofrequency ablation of the left L3-S1 facet joints. TECHNIQUE: 9 coned-down view(s) of the lumbar spine were obtained intraoperatively.. COMPARISON: None FINDINGS: Imaging provided for left L3-S1 facet joint radiofrequency ablation. RAD/Lumbar Spine 2 or 3 Views IMPRESSION: Imaging provided for radiofrequency ablation. Electronically Signed: All Glasgow MD at 9:45 EST Tel [phone], Service support , CC: Isaías Royal III, MD; Michael Pérez Pharmacogeneticist: Signed ALLERGIES ALLERGIES DATE TYPE / CODE NAME / CODE REACTION SEVERITY SOURCE 03/07/2018 Drug codeine/F006 Upset Stomach Unknown [place] [facility] Allergy/4160 178979([facility] 06262(SNOMED M) Repository CT) 02/25/2012 DRUG/0572116 HYDROCODONE- GI UPSET [facility] 03(SNOMED ACETAMINOPHE [facility]) N Repository ENCOUNTERS ENCOUNTERS ADMIT/DISCHARGE ACCOUNT ADMITTING ENCOUNTER LOCATION SOURCE NUMBER CLASS 04/12/2018/04/13/19 [id number] Ambulatory [address] Repository 04/11/2018/04/11/19 [id number] Ambulatory [address] ing:SDCRoom: Repository AC14 04/08/2018/04/08/19 [id number] Ambulatory [address] Repository 04/08/2018/04/11/19 [id number] Ambulatory [address] Repository 03/07/2018/03/07/20 [id number] Ambulatory [address] ing:SDCRoom: Repository AC03 11/25/2017 [id number] Ambulatory BMSBuilding:[place] [facility] Repository 05/24/2017/05/25/19 [id number] Ambulatory [address] ing:SD Repository 05/20/2017/05/21/19 [id number] Ambulatory [address] Repository 05/10/2017/05/10/19 [id number] Ambulatory BMSBuilding:B [place] [address] [facility] Repository 04/26/2017/04/26/19 [id number] Ambulatory [address] ing:[facility] Repository PAYERS PAYERS ENCOUNTER GUARANTOR PAYER SUBSCRIBER SOURCE 04/11/2018 SILVIA E Primary SILVIA E [place] [id number] [place] Community [facility] [id number] MED[place] Repository [phone]: (234) Number: [phone] () [id number] Date: [place], [place] [address]PE: 04/11/2018 Secondary NOT GIVENUNK [place] Insurance:SELF PAY [facility]: Effective Repository Date:2018-04-04 03/07/2018 SILVIA E Primary SILVIA E [place] [id number] Insurance:[place]: [facility] CARE [id number] Repository 269[address]Msl: (234) Number: [phone] () [id number] Date: [place], [place] [address]SN: 03/07/2018 Secondary NOT GIVENUNK [place] Insurance:SELF PAY [facility] Number: Effective Repository Date:2018-02-25 11/25/2017 Flor S [id number] Primary SILVIA E [place] Insurance:[place]: [facility] CARE [id number] Hospital [address]Zui: (234) MEDICAREPolicy Repository [phone] () Number: [id number] Date: [place], [place] [address]BZ: 11/25/2017 Secondary NOT GIVENUNK [place] Insurance:SELF PAY [facility] Number: Effective Repository Date:2017-05-10 05/24/2017 Flor S [id number] Primary SILVIA E [place]: [facility] CARE [id number] Hospital [address]Jwi: (234) MEDICAREPolicy Repository [phone] () Number: [id number] Date: [place] [address]LX: 05/24/2017 Secondary NOT GIVENUNK [place] Insurance:SELF PAY [facility] Number: Effective Repository Date:2017-05-18 05/10/2017 Flor Guzmans330 Primary SILVIA E [place] Insurance:[place]: [place] SECURE CARE [id number] Hospital [id number]: ([phone]) MEDICAREPolicy Repository [phone] () Number: [id number] Date: [facility] [place]ERTA [place] [address]VW: 05/10/2017 Secondary NOT GIVENUNK [place] Insurance:SELF PAY [facility] Number: Effective Repository Date:2017-04-05 04/26/2017 Flor Guzmans330 Primary SILVIA E [place] Insurance:[place]: [place] SECURE CARE [id number] Hospital [address]Lil: ([phone]) MEDICAREPolicy Repository [phone] () Number: [id number] Date: [place] [address]TV: 04/26/2017 Secondary NOT GIVENUNK [place] Insurance:SELF PAY [facility] Number: Effective Repository Date:2017-03-29
== END 2018-03-07 10:50 | disposition home or self-care (01) ==
LOC: SDC 08:41 → AC 08:44
PROVIDERS: Family Provider Family Medicine; PCP Family Medicine; Referring Provider Anesthesiology Pain Medicine; Visit Provider Anesthesiology Pain Medicine
PROC: 3E0U3BZ Introduction of Anesthetic Agent into Joints, Percutaneous Approach (ICD-10-PCS; CPT 64490; principal; 2018-03-07 10:05)
DX: M47.812 Spondylosis without myelopathy or radiculopathy, cervical region (principal); M50.30 Other cervical disc degeneration, unspecified cervical region; M48.02 Spinal stenosis, cervical region; M51.37 Other intervertebral disc degeneration, lumbosacral region; M47.27 Other spondylosis with radiculopathy, lumbosacral region; M48.061 Spinal stenosis, lumbar region without neurogenic claudication; M43.16 Spondylolisthesis, lumbar region; M53.3 Sacrococcygeal disorders, not elsewhere classified; I10 Essential (primary) hypertension; M19.90 Unspecified osteoarthritis, unspecified site; K21.9 Gastro-esophageal reflux disease without esophagitis; Z78.0 Asymptomatic menopausal state; Z79.891 Long term (current) use of opiate analgesic; Z79.899 Other long term (current) drug therapy; Z86.2 Personal history of diseases of the blood and blood-forming organs and certain disorders involving the immune mechanism; Z85.828 Personal history of other malignant neoplasm of skin
CPT/HCPCS: 01992; 64491; 64492; 64490; 72050; J7120

== ENCOUNTER 2018-04-11 06:42 | Day surgery (SDC) | payer MEDICARE, SELFPAY ==
[2018-04-11] VITALS (7 sets, daily range): BP systolic 107–178; BP diastolic 52–64; PULSE 52–71; RESP 16; TEMP 36.4–36.7; O2SAT 93–98; BMI 25.7
--- NOTE | 2018-04-11 08:00 | RAD_ITS ---
STUDY: X-RAY - LUMBAR SPINE REASON FOR EXAM: Female, 83 years old. Right L3 S1 nerve root ablation. TECHNIQUE: 6 cone-down view(s) of the lumbar spine were obtained intraoperatively. 36 seconds of fluoroscopy. COMPARISON: None FINDINGS: Intraoperative imaging provided for right L3-S1 nerve root ablation. RAD/Lumbar Spine 2 or 3 Views IMPRESSION: Intraoperative imaging provided for right L3-S1 nerve root ablation. Electronically Signed: All Glasgow MD at 12:25 EST Tel [phone], Service support ,
[2018-04-11] MEDS: MethylPREDNISolone Acetate 80 MG/ML Vial (08:36)
[2018-04-11] MEDS: Bupivacaine 0.25% 30 ML Vial (08:36)
--- NOTE | 2018-04-11 10:26 | OP.PCM_ITS ---
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 (2) Lumbar facet arthropathy Status: Chronic (3) Lumbosacral spondylosis Status: Chronic Report of Operation Date of Procedure: 04/11/18 Pre-Operative Diagnosis: Lumbosacral spondylosis, lumbosacral degenerative disc disease, lumbar facet arthropathy Post-Operative Diagnosis: Lumbosacral spondylosis, lumbosacral degenerative disc disease, lumbar facet arthropathy Surgery/Procedure Performed:: Right-sided lumbar radiofrequency ablation of the medial branch at L3, L4, L5, S1 Description of Surgical Findings:: PROCEDURE: Right-sided radiofrequency ablation of the medial branch L3, L4, L5, S1 PREOPERATIVE DIAGNOSES: Lumbosacral spondylosis, lumbosacral degenerative disc disease, lumbar facet arthropathy POSTOPERATIVE DIAGNOSES: Lumbosacral spondylosis, lumbosacral degenerative disc disease, lumbar facet arthropathy ANESTHESIA: MAC COMPLICATIONS: None BLOOD LOSS: Minimal PROCEDURE IN DETAIL: History and physical today was reviewed. Risks and benefits of procedure explained. The patient understood, agreed to the procedure and informed consent was obtained. IV inserted per routine protocol. The patient was taken to the operating room, placed in the prone position with a pillow positioned underneath the abdomen. The right side of the lower back was prepped and draped in a sterile fashion using iodine x 3. Under fluoroscopy guidance, on an oblique view, the L3 through S1 vertebral bodies were visualized . The skin and subcutaneous tissue was anesthetized with approximately 10 mL of 1% lidocaine using a 25-gauge regular needle. Under direct visualization with fluoroscopy at approximately 25-degree angle, starting on the right L3, ending on the right S1 passing through the L4-L5 using a 20-gauge 15 cm with a 10 mm curved active tip radiofrequency ablation needle the needle passed through the skin. The tip of the needle was maneuvered and directed towards the superior and medial gutter of the transverse process at the vicinity of the medial branch. Once the tip of the needle was in contact with the bone, the needle pulled approximately 2 mm up the bone. The stylet of each needle was then removed. After negative aspiration of blood with CSF and confirmation of AP as well as oblique view, radiofrequency ablation probe was then inserted at each level. Impedance was then recorded at L3 to be 240, at L4 266, at L5 310, at S1 296 ohm. Motor-evoked potential was then initiated to 1.5 volt without any motor response at each corresponding level. The probe was then removed intact and a total of 6 mL preservative-free 1% lidocaine was injected in divided doses between those 4 levels after negative aspiration of blood with CSF. The radiofrequency ablation probe was then reinserted after confirmation of AP, oblique as well as lateral view. Radiofrequency ablation was then initiated to 80 degrees Celsius for 90 seconds at each level. Once concluded, the probe was then removed intact and a total of 6 mL of preservative-free 0.25% Marcaine with 40 mg Depo-Medrol was injected in divided doses between those 4 levels. The needles were then removed intact. The patient experienced no signs or symptoms of intrathecal, intravascular injection. The patient experienced no paraesthesia. The procedure was completed without any apparent difficulty, any complication. The patient appeared to tolerate well. Sensory as well as motor exam was unchanged from prior to procedure. ASSESSMENT AND PLAN: This is a 83-year-old Female with lumbosacral spondylosis, lumbosacral degenerative disc disease, lumbar facet arthropathy, status post right-sided radiofrequency ablation of the medial branch L3 through S1. The patient will continue her current medications. The patient will follow up in approximately 2 weeks for reevaluation.
--- OUTSIDE RECORDS SUMMARY | 2018-06-13 14:25 | XMS RPT_ITS ---
:1935 Author Organization OHIP Care Team Providers Name Role Phone ISAÍAS ROYAL III Referring Unavailable DARLIN SOTELO (VIDEO NETWORK ENGINEER) Attending Unavailable DARLIN SOTELO (VIDEO NETWORK ENGINEER) Referring Unavailable ISAÍAS ROYAL III Attending Unavailable Michael Pérez Attending Unavailable Michael Pérez Referring Unavailable Isaías Royal III Primary Care Unavailable Michael Pérez Attending Unavailable [...] STATUS SOURCE 06/04/2015 Active Hyperlipidemia, NA Active [facility] unspecified / [facility] [place] E78.5(ICD-10) Repository 07/14/2005 Active Essential NA Active [facility] (primary) [facility] [place] hypertension / Repository I10(ICD-10) PROCEDURES PROCEDURES No Procedure Records FoundRESULTS RESULTS PROGRESS Observed: 04/12/2018 Status: COMPLETED Source: [place] 8:47 AM [facility] RE[facility] HNO ID: [id number] Author: Isaías Royal III Service: (none) Author Type: Physician Type: Progress Notes Filed: 04/12/2018 9:28 AM Note Text: SUBJECTIVE: Chief Complaint: Silvia Bergman is a 83 year old female who presents for a comprehensive problem evaluation. New concerns today include 1. hypertension--started on hctz 12.5mg qday last wk 2. hx of atrial fib. Channel Program Manager did not want her on an anticoagulant. [...] Range: 1.00 - 4.00 k/uL 0.88 (L) Gilchrist% Latest Units: % 9.0 Abs Gilchrist Latest Ref Range: <0.87 k/uL 0.53 Eosin% [...] MD CNOV Observed: 04/12/2018 Status: COMPLETED Source: [place] 8:40 AM [facility] REPOSITORY Office Visit (FAMPWS) SILVIA BERGMAN ([id number]) 1935 F NFR Date Time Provider Department [...] last wk 2. hx of atrial fib. Channel Program Manager did not want her on an anticoagulant. [...] Range: 1.00 - 4.00 k/uL 0.88 (L) Gilchrist% Latest Units: % 9.0 Abs Gilchrist Latest Ref Range: <0.87 k/uL 0.53 Eosin% [...] metoprolol succinate ER (TOPROL XL) 100 mg [id number] 1 tablet by mouth once daily.Disp: 90 [...] OPERATIVE REPORT Observed: 04/11/2018 Status: F Source: [place] 10:26 AM [facility] REPOSITORY [facility] Medical Records Department [address] [place] [address] Operative Report 04/11/18 1024 MR#: [id number] Acct: [id number] Name: SILVIA BERGMAN Rep #: [id number] : 1935 83 From: Michael Pérez MD PCP: Isaías Royal III, MD Status: [facility] [place] Location: [facility] Problem List (1) Degeneration of lumbosacral intervertebral [...] OR 3 Observed: 04/11/2018 Status: F Source: [place] VIEWS 1:23 AM [facility] REPOSITORY [facility] Imaging Services [address] [place] [address] 34130 Lumbar Spine 2 or 3 Views MR#: [id number] Acct: [id number] Name: SILVIA BERGMAN Rep #: [id number] : 1935 F 83 From: All [place] MD PCP: Isaías Royal III, MD Status: [facility] Study: Lumbar Spine 2 or 3 Views Date of Exam: 04/11/18 Exam# [id number] Ordering Dr: Michael Pérez MD STUDY: X-RAY [...] All [place] MD at 12:25 EST Tel [phone], Service support , CC: Isaías Royal III, MD; Michael Pérez Surveying Teacher: Signed CBC AND DIFFERENTIAL Collected: 04/08/2018 Status: F Source: [place] 10:46 AM [facility] REPOSITORY TYPE CODE TESTS RESULT [...] Low Abs Lymph 0.88 LAB AMONO % Gilchrist% 9.0 LAB AAMONO <0.87 k/uL Abs Gilchrist 0.53 LAB AEOS % Eosin% 4.3 LAB AAEOS <0.46 k/uL Abs Eosin 0.25 LAB ABASO % Baso% 1.0 LAB AABASO <0.11 k/uL Abs Baso 0.06 LAB AUNRBC 0 /100 WBC NRBCs 0.0 LAB ABNRBC <0.01 k/uL Absolute nRBC <0.01 LAB DTYP DTYPE Auto Diff Performed By: #### CBCDIF, CMP, LIPNF, TSH #### [facility] [address] [place], [place] [address] COMP METABOLIC PANEL Collected: 04/08/2018 Status: F Source: [place] 10:46 AM [facility] REPOSITORY TYPE CODE TESTS RESULT OUT OF REFERENCE UNITS RANGE LAB TP 6.3-8.0 g/dL Protein, Total 6.8 LAB ALB 3.9-4.9 g/dL Albumin 4.2 LAB CA 8.5-10.2 mg/dL Calcium, Total 9.6 LAB TBIL 0.2-1.3 mg/dL Bilirubin, Total 0.6 LAB ALKP 34-123 U/L Alkaline Phosphatase 106 LAB AST 13-35 U/L AST 20 LAB GLU 74-99 mg/dL Glucose 89 Result Comment: The [place] Diabetes Association (ADA) provides guidance for cutoff [...] Standards of Medical Care in Diabetes 2016, [place] Diabetes Association. Diabetes Care. 2016.39(Suppl 1). LAB [...] By: #### CBCDIF, CMP, LIPNF, TSH #### [facility] [address] [place] [id number] LIPID PANEL, NONFAST Collected: 04/08/2018 Status: F Source: [place] 10:46 AM [facility] REPOSITORY TYPE CODE TESTS RESULT OUT OF [...] Desk Reference: National Heart, Lung, and Blood Summit. National Institutes of Health. 2001: NIH Publication No. 01-3305. 2. An International Atherosclerosis Society position paper: global recommendations for the management of dyslipidemia: executive summary, Atherosclerosis. 2014: 232(2):410-413. Performed By: #### CBCDIF, CMP, LIPNF, TSH #### [facility] [address] [place], [place] [address] TSH Collected: 04/08/2018 Status: F Source: [place] 10:46 AM [facility] REPOSITORY TYPE CODE TESTS RESULT OUT OF RANGE REFERENCE UNITS LAB TSH 0.400-5.500 uU/mL TSH 3.030 Performed By: #### CBCDIF, CMP, LIPNF, TSH #### [facility] [address] [place], [place] [address] PROGRESS Observed: 04/08/2018 Status: COMPLETED Source: [place] 10:04 AM [facility] REPOSITORY HNO ID: [id number] Author: Darlin West (Javy) Deepak Service: (none) [...] with cymbalta withdrawal). Protocols used: HIGH BLOOD [id number] ? Past medical history, appointments, medications, allergies [...] - LIPID PANEL, NONFASTING Darlin Sotelo, MSN REMNANTS CUTTER.TILE AND MOTTLE SUPERVISOR CNOV Observed: 04/08/2018 Status: COMPLETED Source: [place] 9:40 AM [facility] REPOSITORY Office Visit (FAMPWS) SILVIA BERGMAN ([id number]) 1935 F NFR Date Time Provider Department 04/08/18 9:40 AM DARLIN SOTELO (VIDEO NETWORK ENGINEER) FAMPWS During your visit today, we recorded the following information about you: Temperature Pulse Respiration Blood pressure 99.2 degrees 68/minute 16/minute 150/72 Weight 67.1 kg Darlin Sotelo, MSN REMNANTS CUTTER.TILE AND MOTTLE SUPERVISOR 04/08/2018 1:18 PM Signed Chief Complaint Patient [...] (per pain management, no taper done). Per [employer] sx are consistent with cymbalta withdrawal). Protocols used: HIGH BLOOD [id number] ? Past medical history, appointments, medications, allergies [...] - LIPID PANEL, NONFASTING Darlin Sotelo, MSN REMNANTS CUTTER.TILE AND MOTTLE SUPERVISOR Referring Provider: SELF [200] Allergies As of Date: 04/08/2018 Noted Allergy Reaction HYDROCODONE-ACETAMINOPHEN 02/25/2012 8 - GI Upset Date Reviewed: 04/08/2018 Reviewed by: Fransico Jarquin FOOTBALL SCOUT - Fully Assessed Reason for Visit: Hypertension [...] 1 LIPID PANEL, NONFASTING [SQLIPNF] Order #: [id number] FUTURE COMP METABOLIC PANEL [SQCMP] Order #: [id number] FUTURE CBC + DIFF [SQCBCDIF] Order #: [id number] FUTURE TSH BLD [SQTSH] Order #: [id number] FUTURE Prescriptions as of 04/08/2018 Sig: LISINOPRIL [...] 03/07/2018 Status: F Source: [place] 10:24 AM [facility] REPOSITORY [facility] Medical Records Department [address] [place] [address] Operative Report 03/07/18 1019 MR#: [id number] Acct: [id number] Name: SILVIA BERGMAN Rep #: [id number] : 1935 83 From: Michael Pérez MD PCP: Isaías Royal III, MD Status: REG [facility] [place] Location: [place] [address] Problem List (1) Spondylosis of cervical region [...] OR 5 Observed: 03/07/2018 Status: F Source: [place] VIEWS 3:43 AM [facility] REPOSITORY [facility] Imaging Services [address] [place] [address]382 Cerv Spine 4 or 5 Views MR#: [id number] Acct: [id number] Name: SILVIA BERGMAN Rep #: [id number] : 1935 F 83 From: All [place] MD PCP: Isaías Royal III, MD Status: [facility] Study: Cerv Spine 4 or 5 Views Date of Exam: 03/07/18 Exam# [id number] Ordering Dr: Michael Pérez MD PROCEDURE: Right [...] All [place] MD at 9:36 EST Tel [phone], Service support , CC: Isaías Royal III, MD; Michael Pérez Surveying Teacher: Signed PROGRESS Observed: 06/09/2017 Status: COMPLETED Source: [place] 1:36 PM [facility] REPOSITORY O ID: [id number] Author: Isaías Royal III Service: (none) Author Type: Physician Type: Progress Notes Filed: 06/09/2017 1:36 PM Note Text: Silvia, Good news?the lipids and other lab results look fine. Recommend a healthy diet with regular physical activity. Same medications. Isaías Royal III, MD, [facility] OPERATIVE REPORT Observed: 05/24/2017 Status: F Source: [place] 12:06 PM [facility] REPOSITORY [facility] Medical Records Department [address] [place] [address] Operative Report 05/24/17 1204 MR#: [id number] Acct: [id number] Name: SILVIA BERGMAN Rep #: [id number] : 1935 82 From: Michael Pérez MD PCP: Isaaís Royal III, MD Status: REG [facility] [place] Location: [place] [address] Problem List (1) Degeneration of lumbosacral intervertebral [...] GUIDANCE FOR Observed: 05/23/2017 Status: F Source: [place] SPINE INJ 11:57 PM [facility] REPOSITORY [facility] Imaging Services [address] [place] [address] Fluor Guidance for Spine Inj MR#: [id number] Acct: [id number] Name: SILVIA BERGMAN Rep #: [id number] : 1935 F 82 From: All [place] MD PCP: sIaías Royal III, MD Status: [facility] Study: Fluor Guidance for Spine Inj Date of Exam: 05/24/17 Exam# [id number] Ordering Dr: Michael Pérez MD PROCEDURE: Sacral [...] All [place] MD at 13:37 EST Tel [phone], Service support , CC: Isaías Royal III, MD; Michael Pérez Surveying Teacher: Signed COMP METABOLIC PANEL Collected: 05/20/2017 Status: F Source: [place] 10:25 AM [facility] REPOSITORY TYPE [...] mg/dL Low Glucose 71 Result Comment: The [place] Diabetes Association (ADA) provides guidance for cutoff [...] Standards of Medical Care in Diabetes 2016, [place] Diabetes Association. Diabetes Care. 2016.39(Suppl 1). LAB [...] GFR. Performed By: #### CMP, LIPB #### [facility] [address] [place], [place] [address] LIPID PANEL, BASIC Collected: 05/20/2017 Status: F Source: [place] 10:25 AM [facility] REPOSITORY TYPE CODE TESTS RESULT [...] Desk Reference: National Heart, Lung, and Blood Summit. National Institutes of Health. 2001: NIH Publication No. 01-3305. 2. An International Atherosclerosis Society position paper: global recommendations for the management of dyslipidemia: executive summary, Atherosclerosis. 2014: 232(2):410-413. Performed By: #### CMP, LIPB #### [facility] [address] [place], [place] [address] CARDIOLOGY VISIT Observed: 05/10/2017 Status: F Source: [place] REPORT 2:20 PM [facility] REPOSITORY [place] [facility] [address] [place] [address] OFFICE VISIT Date of Service: 05/10/17 MR#: [id number] Acct: [id number] Name: SILVIA BERGMAN Rep #: [id number] : 1935 Provider: JAVY Enriquez Age/Sex: 82/F Location: [facility] [place] Status: Signed HPI HPI Details: SILVIA BERGMAN, is a 82 F who presents to the office today for a cardiovascular outpatient follow-up. Patient is a history of paroxysmal atrial fibrillation diagnosed in March 2017, hypertension, and hyperlipidemia. She is a non-smoker, nondrinker, and nondiabetic. Patient presented to [facility] in March 2017 with palpitations and was [...] Location Lt brachial Intake Visit Reasons: S/P [facility] Algebraist Required: No Accompanied by: Is patient in [...] signed by Rashad Enriquez NP-C> Date Rashad Enriquez VIDEO NETWORK ENGINEER-C 05/10/17 1420<Electronically signed by Diony Deshpande MD> Cosigner Signature: Date (if applicable) Diony Deshpande MD CC: Isaías Royal III, MD OPERATIVE REPORT Observed: 04/26/2017 Status: F Source: [place] 9:49 AM [facility] REPOSITORY [facility] Medical Records Department [address] [place] [address] Operative Report 04/26/1746 MR#: [id number] Acct: [id number] Name: SILVIA BERGMAN Rep #: [id number] : 1935 82 From: Michael Pérez MD PCP: Isaías Royal III, MD Status: [facility] Y Location: [facility] Problem List (1) Degeneration of lumbosacral intervertebral [...] OR 3 Observed: 04/26/2017 Status: F Source: [place] 3:30 AM [facility] REPOSITORY [facility] Imaging Services [address] [place] [address]183 Lumbar Spine 2 or 3 Views MR#: [id number] Acct: [id number] Name: SILVIA BERGMAN Rep #: [id number] : 1935 F 82 From: All [place] MD PCP: Isaías Royal III, MD Status: [facility] Study: Lumbar Spine 2 or 3 Views Date of Exam: 04/26/17 Exam# [id number] Ordering Dr: Michael Pérez MD STUDY: X-RAY [...] All [place] MD at 9:45 EST Tel [phone], Service support , CC: Iasías Royal III, MD; Michael Pérez Surveying Teacher: Signed ALLERGIES ALLERGIES DATE TYPE / CODE NAME / CODE REACTION SEVERITY SOURCE 03/07/2018 Drug codeine/F006 Upset Stomach Unknown [place] [facility] Allergy/4160 170228([facility] [address]1670(SNOMED M) Repository CT) 02/25/2012 DRUG/6011431 HYDROCODONE- GI UPSET [facility] 03(SNOMED ACETAMINOPHE [facility] [place] CT) N Repository ENCOUNTERS ENCOUNTERS ADMIT/DISCHARGE ACCOUNT ADMITTING ENCOUNTER LOCATION SOURCE NUMBER CLASS 04/12/2018/04/13/19 [id number] Ambulatory [address] Repository 04/11/2018/04/11/19 [id number] Ambulatory [address] ing:SDCRoom: Repository AC14 04/08/2018/04/08/19 [id number] Ambulatory [address] Repository 04/08/2018/04/11/19 [id number] Ambulatory [address] Repository 03/07/2018/03/07/20 [id number] Ambulatory [address] ing:SDCRoom: Repository AC03 11/25/2017 [id number] Ambulatory BMSBuilding:[place] [facility] Repository 05/24/2017/05/25/19 [id number] Ambulatory [address] ing:SD Repository 05/20/2017/05/21/19 [id number] Ambulatory [address] Repository 05/10/2017/05/10/19 [id number] Ambulatory BMSBuilding:B [place] [facility] Repository 04/26/2017/04/26/19 [id number] Ambulatory [address] ing:[facility] Repository PAYERS PAYERS ENCOUNTER GUARANTOR PAYER SUBSCRIBER SOURCE 04/11/2018 SILVIA E Primary SILVIA E [place] [id number] Insurance[place]: Community [facility] [id number] Repository [address]Cqd: (234) Number: [phone] () [id number] Date: [place], [place] [address]OO: 04/11/2018 Secondary NOT GIVENUNK [place] Insurance:SELF PAY [facility] Number: Effective Repository Date:2018-04-04 03/07/2018 SILVIA E Primary SILVIA E [place] [id number] Insurance:[place]: [facility] CARE [id number] MED[place]ARE[place] Repository [address]Ybs: (234) Number: [phone] () [id number] Date: [place], [place] [address]HL: 03/07/2018 Secondary NOT GIVENUNK [place] Insurance:SELF PAY [facility] Number: Effective Repository Date:2018-02-25 11/25/2017 Flor S [id number] Primary SILVIA E [place] Insurance:[place] SK[place]OB: [facility] CARE [id number] Hospital [address]Xlq: (234) MEDICAREPolicy Repository [phone] () Number: [id number] Date: [place], [place] [address]IK: 11/25/2017 Secondary NOT GIVENUNK [place] Insurance:SELF PAY [facility] Hospital Number: Effective Repository Date:2017-05-10 05/24/2017 Flor S [id number] Primary SILVIA E [place] Insurance:[place]OB: [facility] CARE [id number] Hospital [address]Zud: (234) MEDICAREPolicy Repository [phone] () Number: [id number] Date: [place] [address]RX: 05/24/2017 Secondary NOT GIVENUNK [place] Insurance:SELF PAY [facility] Number: Effective Repository Date:2017-05-18 05/10/2017 Flor Guzmans330 Primary SILVIA E [place] Insurance:[place]: Community [place] SECURE CARE [id number] Hospital [address]Rgc: (206) MEDICAREPolicy Repository [phone] () Number: [id number] Date: [facility] [place] [address]LR: 05/10/2017 Secondary NOT GIVENUNK [place] Insurance:SELF PAY [facility] Number: Effective Repository Date:2017-04-05 04/26/2017 Flor Guzmans330 Primary SILVIA E [place] Insurance:[place]: [place] SECURE CARE [id number] Hospital [address]Pjt: (481) MEDICAREPolicy Repository [phone] () Number: [id number] Date: [place] [address]GS: 04/26/2017 Secondary NOT GIVENUNK [place] Insurance:SELF PAY [facility] Number: Effective Repository Date:2017-03-29
== END 2018-04-11 09:16 | disposition home or self-care (01) ==
LOC: SDC 06:43 → AC 06:45
PROVIDERS: Family Provider Family Medicine; PCP Family Medicine; Referring Provider Anesthesiology Pain Medicine; Visit Provider Anesthesiology Pain Medicine
PROC: (CPT 64635; principal; 2018-04-11 07:50)
DX: M51.37 Other intervertebral disc degeneration, lumbosacral region (principal); M47.817 Spondylosis without myelopathy or radiculopathy, lumbosacral region; M48.061 Spinal stenosis, lumbar region without neurogenic claudication; M43.16 Spondylolisthesis, lumbar region; M47.812 Spondylosis without myelopathy or radiculopathy, cervical region; M50.30 Other cervical disc degeneration, unspecified cervical region; M48.02 Spinal stenosis, cervical region; M19.90 Unspecified osteoarthritis, unspecified site; M53.3 Sacrococcygeal disorders, not elsewhere classified; I10 Essential (primary) hypertension; K21.9 Gastro-esophageal reflux disease without esophagitis; Z79.899 Other long term (current) drug therapy; Z78.0 Asymptomatic menopausal state; Z86.2 Personal history of diseases of the blood and blood-forming organs and certain disorders involving the immune mechanism; Z85.828 Personal history of other malignant neoplasm of skin
CPT/HCPCS: 64635; 64636 ×3; 72100; 76000; J7120

== ENCOUNTER 2018-04-18 20:19 | Emergency (ER) | payer MEDICARE, SELFPAY ==
[2018-04-11 07:04] VITALS: BMI 25.7
[2018-04-18 20:20] VITALS: BP 206/91; PULSE 89; RESP 16; TEMP 36.7; O2SAT 96; BMI 25.8
[2018-04-18 20:35] VITALS: BP 227/94; PULSE 82; RESP 14; O2SAT 97
--- NOTE | 2018-04-18 20:52 | CT_ITS ---
STUDY: CT BRAIN WITHOUT CONTRAST REASON FOR EXAM: Female, 83 years old. Headache, hypertension. RADIATION DOSAGE (If Supplied By Facility): CTDIvol = ( 44.99 ) mGy, DLP = ( 762.36 ) mGycm TECHNIQUE: Transaxial CT imaging of the brain was performed without administration of intravenous contrast material. Individualized dose optimization techniques were used for this CT. COMPARISON: None. FINDINGS: Normal soft tissue structures. Normal calvarium. Normal size ventricles and extra-axial spaces for the patient's age. Normal white matter tracts of the cerebral hemispheres. Normal basal ganglia and thalami. Normal brainstem. Normal cerebellum. There is no intracranial hemorrhage. There are no findings of an acute ischemic infarction. Normal visualized paranasal sinuses. CT/Brain/Head without Contrast IMPRESSION: Normal unenhanced CT scan of the brain. Electronically Signed: Fartun Gomez MD at 22:16 EST Tel , Service support ,
[2018-04-18 21:38] LABS: Absolute Lymphocyte Count 1.98 X10^3/ul (0.83-4.51); Absolute Neutrophil Count 7.5 X10^3/uL (2.0-7.7); Basophil# 0.04 X10^3/uL; Basophil% 0.4 % (0-1); Eosinophil# 0.37 X10^3/uL; Eosinophils% 3.4 % (0-5); Hematocrit 39.3 % (37-47); Hemoglobin 13.2 g/dl (12.0-15.0); Lymphocyte # 1.98 X10^3/ul (4.0); Lymphocyte % 18.1 % (19-41); Mean Corp Hgb Conc 33.6 g/gl (32-36); Mean Corpuscular Hgb 31.6 pg (27.0-32.0); Mean Platelet Vol. 9.3 fl (6.2-12.0); Monocyte# 0.96 X10^3/uL; Monocyte% 8.8 % (0-10); Neutrophil % 68.8 % (47-70); Platelet Count 314 K/mm3 (150-450); RBC Distribution Width CV 13.1 % (11.6-14.6); RBC Distribution Width SD 45.2 fl (35.1-43.9); Red Blood Count 4.18 M/mm3 (4.2-5.4); White Blood Count 10.9 K/mm3 (4.4-11.0)
[2018-04-18 21:39] LABS: POSITIVE COUNT NO; POSITIVE DIFFERENTIAL NO; POSITIVE MORPHOLOGY NO
[2018-04-18 22:04] LABS: Anion Gap 9 (5-15); BUN 27 mg/dL (7-18); BUN/Creat Ratio 30.8 RATIO (10-20); Calcium,Total 8.9 mg/dL (8.5-10.1); Chloride 102 mmol/L (98-107); Creatinine, Serum 0.88 mg/dL (0.55-1.02); EST Glomerular Filtration Rate 66 mL/min (>60); Est Glom Filt Rate - Afr Amer 80 mL/min (>60); Glucose 113 mg/dL (74-106); Potassium 3.7 mmol/L (3.5-5.1); Sodium Level 137 mmol/L (136-145)
[2018-04-18 22:07] VITALS: BP 158/80; PULSE 73; RESP 14; O2SAT 98
[2018-04-18] MEDS: Spironolactone 25 MG Tablet PO (22:12)
--- NOTE | 2018-04-18 22:43 | ED.DCSUM_ITS ---
- ER Visit Summary Date of Service: 04/18/18 Chief Complaint: Hypertension History of Present Illness: The patient is a [address] Isaías Royal III. She reports that over the past week her blood pressures ranged from 145-184 systolic and 64-95 diastolic. She is on 240 mg of verapamil SR twice a day. 40 mg of lisinopril a day. 100 mg of Toprol-XL a day. States that 10 days ago she had 12.5 mg of hydrochlorothiazide added. Despite this she continues to have elevated blood pressures. Patient reports that she has a headache is 3 out of 10 severity. She denies any numbness or weakness. No chest pain or shortness of breath. Physical Examination: Vitals: 98.0, 227/94, 82, 14, 99% room air which is not hypoxic. General: Well-nourished and well-developed. Head: Normocephalic atraumatic. Neck: Supple, no lymphadenopathy. No JVD. Nontender. Cardiovascular: Regular rate and rhythm. No murmurs. Respiratory: No respiratory distress. Clear to auscultation bilaterally. Abdominal: Soft, nontender, nondistended, normal bowel sounds. No guarding, rebound, or peritoneal signs. Back: Nontender. Extremities: Nontender, no edema. Skin: Normal color, no rash. Neurologic: Alert and oriented ?3. Cranial nerves II through XII are intact. Normal strength and sensation. Psych: Normal affect. Test Results: CT brain shows no acute disease. CBC is more for lymphocytes 18. Chem-7 more for glucose 113 BUN 27. Emergency Department Course and Treatment: Patient was given a dose of labetalol IV and her blood pressure decreased to 171/81. She was discussed with Dr. Isaías Royal iii was given dose of spironolactone p.o. Treatment Plan: Patient will be discharged with spironolactone. Instructed follow-up Dr. Isaías Royal iii in 1 week for another exam. Return to the emergency department for any worsening symptoms. Disposition: To home in improved and stable condition. Impression: 1. Hypertension. This note was generated with [employer]ation software. It may contain incorrect words, spelling, and punctuation that were not noted in review of the chart prior to signing ED Disposition - Plan for ED Patient: Disposition: Home or Assisted Living Chief Complaint: Hypertension Instructions: ED Hypertension Conf Out Of Control Prescriptions: Lisinopril 40 mg PO DAILY #30 tablet Spironolactone 25 mg PO DAILY #30 tablet Referrals: Isaías Royal III, MD [Primary Care Provider] - 1 Week
[2018-04-18 22:46] VITALS: BP 161/68; PULSE 72; RESP 14; O2SAT 96
[2018-04-18 22:49] VITALS: BP 165/72; PULSE 65; RESP 14; O2SAT 98
== END 2018-04-18 22:54 | disposition home or self-care (01) ==
LOC: ED 20:56
PROVIDERS: Emergency Provider Emergency Medicine; Family Provider Family Medicine; PCP Family Medicine
DX: I10 Essential (primary) hypertension (principal); Z79.899 Other long term (current) drug therapy
CPT/HCPCS: 70450; 80048; 85025; 96374; 96376; 99285; A4216

== ENCOUNTER 2018-08-22 10:15 | Day surgery (SDC) | payer MEDICARE, SELFPAY ==
[2018-07-26 11:48] VITALS: BMI 26.9
--- NOTE | 2018-07-30 11:54 | HP_ITS ---
HPI HPI Surgical H&P: No Details: Details: JULIUS ROSENBERG, is a 82 F who presents to the office today for a cardiovascular outpatient follow-up. Patient is a history of paroxysmal atrial fibrillation diagnosed in March 2017, hypertension, and hyperlipidemia. She is a non-smoker, nondrinker, and nondiabetic. Patient presented to [facility] in March 2017 with palpitations and was being treated for dehydration and diarrhea. She was found to be in atrial fibrillation with RVR. She received IV Cardizem and converted to normal sinus rhythm. Her EKG revealed inferolateral ST segment depression and patient was noted to have substernal chest pressure. She was hypokalemic and received potassium replacement. Patient underwent a echocardiogram that showed a normal LV function and an RVSP of 36 mmHg. Her exercise stress test was negative and showed a preserved ejection fraction. Her cardiac enzymes remained negative. She was restarted on the home medication. Anticoagulation was not started at that time. She ultimately was discharged home. Patient was recently admitted to the hospital in [facility] on 07/14/2018 with profound dizziness, dehydration, and fatigue. She was found to be dehydrated, and her spinal lactone was discontinued. Apparently she has been on and off of hydrochlorothiazide and spironolactone each time causing dehydration precipitating atrial fibrillation. Her atrial fibrillation resolved, and her water pills were discontinued. She is now here in follow-up. Since discharge she is doing very well and her energy level is completely back to normal. Her blood pressures at home are in the 10 8-1 20s although today it is 160/64 with a pulse of 64 and regular. She denies any chest pain. Her physical exam is as below. Lipids as of 03/31/2017 show an LDL of 132 and HDL of 42. The patient is keenly aware when she goes in and out of atrial fibrillate Intake Vital Signs 07/26/18 Height 5 ft 4 in 07/26/18 Weight: 157 lb 07/26/18 Body Mass Index (BMI) 26.9 07/26/18 Blood Pressure 160/64 H 07/26/18 Blood Pressure Location Lt brachial 07/26/18 Blood Pressure Position Sitting 07/26/18 Respiratory Rate 20 H 07/26/18 Pulse Rate 64 07/26/18 Pulse Source Auscultation Intake Visit Reasons: ER IN [place] [employer] [place] [employer] Required: No Is patient in pain?: No Allergies codeine Adverse Reaction (Verified 07/26/18 11:50) Upset Stomach Medications Cholecalciferol (VIT D3) [Vitamin D3] 1,000 unit PO DAILY 01/31/15 [History Confirmed 07/26/18] Famotidine 40 mg PO DAILY 01/31/15 [History Confirmed 07/26/18] Metoprolol Succinate [Toprol Xl] 100 mg PO DAILY 01/31/15 [History Confirmed 07/26/18] Multivitamins,Therapeutic [Multivitamin] 1 tab PO DAILY 01/31/15 [History Confirmed 07/26/18] Verapamil [Calan Sr] 240 mg PO BID 01/31/15 [History Confirmed 07/26/18] Acetaminophen [Tylenol] 500 - 1,000 mg PO Q6H PRN PRN 10/25/15 [History Confirmed 07/26/18] traMADol [Ultram] 50 mg PO Q6H PRN PRN 10/25/15 [History Confirmed 07/26/18] Calcium Carbonate/Vitamin D3 [Calcium 500 mg Chewable Tablet] 1 ea PO BID 01/01/16 [History Confirmed 07/26/18] Meloxicam 7.5 mg PO DAILY 04/26/17 [History Confirmed 07/26/18] estradiol 0.01% (0.1 mg/gram) vaginal cream 1 g VAGINAL QWEEK g 05/10/17 [History Confirmed 07/26/18] Escitalopram Oxalate [Lexapro] 10 mg PO DAILY 04/11/18 [History Confirmed 07/26/18] Lisinopril 40 mg PO DAILY #30 tab 04/18/18 [Rx Confirmed 07/26/18] FOR[facility]LY [facility] Medical History History of atrial fibrillation (Chronic) Hyperlipidemia (Chronic) Paroxysmal atrial fibrillation (Chronic) Lumbar facet arthropathy (Chronic) Lumbosacral spondylosis (Chronic) Degeneration of lumbosacral intervertebral disc (Chronic) HTN (hypertension) (Chronic) Lumbosacral radiculitis (Chronic) History of hysterectomy (Chronic) Surgical History History of cholecystectomy (Chronic) Family History Sister Alzheimer's disease Social History Smoking Status: Never smoker alcohol intake: never substance use type: does not use caffeine: Yes Type: tea what type of physical activity do you participate in: none seatbelt use: always do you feel safe at home: Yes ROS Const Const: Positive for other (Had episode of a-fib in [place], dehydrated: hctz stopped. Feels well now.); negative for fatigue, weakness, body ache, fever(s), headache(s), chills, frequent falls, night sweats, daytime sleepiness, difficulty sleeping, excessive sweating, weight gain, weight loss, increased appetite, poor appetite or anorexia Eyes Eyes: Negative for blind spots, loss of peripheral vision, transient loss of vision, blurry vision, change in vision, double vision, floaters, tunnel vision or other ENT ENT: Negative for headache(s), dizziness, hearing loss, tinnitus, Nosebleed/epistaxis, balance problems, post nasal drip, lip swelling, tongue swelling, bleeding gums, hoarseness, neck pain, dry mouth or other Cardio Chest Pain: No Palpitations: No Edema: None Muscle aches with walking: None Resp Respiratory: Negative for SOB with activity, SOB at rest, SOB orthopnea\SOB lying down, Cough, Coughing up blood/hemoptysis, chest congestion, pain on inspiration, snoring, stridor, wheezing, crackles, paroxysmal nocturnal dyspnea or other GI GI: Negative nausea, vomiting, heartburn, constipation, belching, bloating, cramping, vomiting blood/hematemesis, bright, red blood in stools, black,tarry stools, loose stools, Difficulty Swallowing or other : Negative for hematuria, frequent nighttime urination/ nocturia, erectile dysfunction or abnormal vaginal bleeding Musc Musc: Negative for muscle aches/ myalgia, muscle weakness, joint pain or balance problems Skin Skin: Negative redness, non-healing lesions, rash, unusual bruising, skin ulcer, wounds, jaundice or other Neuro Neuro: Negative for dizziness, lightheadedness, near syncope, syncope, orthostatic symptoms, frequent falls, headache(s), weakness, confusion, memory loss, restless legs, blurry vision, double vision, vertigo, seizures, lack of coordination or other Rajendra Hematologic/Lymphatic: Negative for easy bleeding, easy bruising, enlarged lymph nodes or other Endo Endo: Negative for fatigue, cold intolerance, heat intolerance, excessive sweating, flushing, increased thirst/drinking, increased hunger, hair loss, hair growth or other Psych Psych: Negative for anxiety, depression, thoughts of harming anyone, thoughts of harming yourself, visual hallucinations, panic attacks or audible hallucinations Allergy Allergy/Immunology: Negative for throat swelling, Negative for tongue swelling, Negative for hives, Negative for rash, Negative for lip swelling Cardiology Exam Const Appearance: cooperative, healthy appearing and no acute distress Nutritional Appearance: well nourished Orientation: alert, oriented x3 and oriented to person Head Head: normal to inspection, normocephalic and atraumatic Nose: external nose normal Face and Sinus: face symmetric Mouth: oral mucosae normal Eyes General: appearance normal, both eyes and all related structures Eyelids: eyelids normal Conjunctivae: conjunctivae normal Pupils: PERRL and normal by confrontation EOM: EOM intact bilaterally Neck Neck: normal visual inspection and full ROM Carotids: normal carotid upstroke Chest Chest inspection: normal inspection of the chest Auscultation: Bilateral: Clear to Auscultation Cardio Palpation: normal PMI Rate: regular rate Rhythm: regular rhythm Heart sounds: S1 normal and S2 normal GI GI: normal to inspection, no hepatosplenomegaly and bowel sounds present Neuro General: alert, awake, oriented x3, CN's II-XI intact bilaterally and moves all extremities Skin Skin: no rashes or lesions noted Extremities Pulses: Normal: Right Femoral Pulse, Left Femoral Pulse, Right Dorsalis Pedis Pulse, Left Dorsalis Pedis Pulse, Right Posterior Tibial Pulse, Left Posterior Tibial Pulse, Right Radial Pulse, Left Radial Pulse Lower Extremity Edema: None: Bilateral Psych Psychological: normal affect Assessment & Plan Plan 1. Paroxysmal atrial fibrillation: The patient is very aware when she goes in and out of atrial fibrillation, she did so when she got dehydrated, and is now back to normal. Her blood pressures at home are fairly well-controlled. Would recommend she continue her eye center, metoprolol and verapamil. I do not believe she requires restarting her diuretic or anticoagulation at this time. 2. Hyperlipidemia: Repeat lipid profile is pending. Continue present management. 3. Return office in 4 months with either myself or an [employer]. This note was generated using a voice recognition system and there may be incorrect words, spelling or punctuation that were not noted when reviewing the office note prior to saving. Orders Orders: Lipid Profile 07/26/18 E78.5 Liver Profile 07/26/18 E78.5 Plan Detail Follow Up +4M (Jeramy or [facility]) Coding Level of Care Code Off vis,est,level 3 Coding Level of Care Code Off vis,est,level 3 Supplemental Info Supplemental Information Labs LDL Cholesterol 132 mg/dL (0-130) H 03/31/17 HDL Cholesterol 42 mg/dL (40-) 03/31/17 Triglycerides 127 mg/dL (-199) 03/31/17 VLDL Cholesterol 25 mg/dL (5-40) 03/31/17 Diagnostics Electrocardiogram 04/02/17 Echocardiogram 03/31/17 Stress Test Nuclear Medicine 04/02/17 Stress Test 04/02/17 Chest X-Ray 03/31/17 07/30/18 1134 <Electronically signed by Diony Deshpande MD> Date Diony Deshpande MD
[2018-08-22 10:52] VITALS: BP 161/62; PULSE 68; RESP 16; TEMP 36.2; O2SAT 99; BMI 26.8
--- NOTE | 2018-08-22 12:53 | RAD_ITS ---
STUDY: X-RAY - LUMBAR SPINE REASON FOR EXAM: Female, 83 years old. Spinal cord stimulator placement. TECHNIQUE: 13 coned-down intraoperative view(s) of the lumbar spine were obtained. COMPARISON: None FINDINGS: A spinal cord stimulator was placed. The distal tip is at the T7-T8 level. RAD/Lumbar Spine 2 or 3 Views IMPRESSION: Imaging provided for spinal cord stimulator placement. Electronically Signed: All Glasgow, at 14:28 EDT , Service support ,
[2018-08-22] MEDS: Cefazolin 2 GM in 0.9% Normal Saline 100 ML IV (12:55)
[2018-08-22] MEDS: Bupivacaine 0.25% 30 ML Vial (13:04)
[2018-08-22] MEDS: Bacitracin 500 UNITS/GM PACKET (13:32)
[2018-08-22 13:45] VITALS: BP 123/61; BP 161/62; PULSE 67; RESP 16; TEMP 36.6; O2SAT 98
[2018-08-22 13:50] VITALS: BP 122/62; BP 161/62; PULSE 60; RESP 16; O2SAT 95
[2018-08-22 13:55] VITALS: BP 126/63; BP 161/62; PULSE 66; RESP 16; O2SAT 96
[2018-08-22 14:00] VITALS: BP 131/74; BP 161/62; PULSE 60; RESP 16; TEMP 36.2; O2SAT 97
[2018-08-22 14:40] VITALS: BP 161/62
--- NOTE | 2018-08-22 16:06 | OP.PCM_ITS ---
Problem List (1) Spinal stenosis of lumbosacral region Status: Chronic (2) Degeneration of lumbosacral intervertebral disc Status: Chronic (3) Lumbosacral radiculitis Status: Chronic (4) Lumbosacral spondylosis Status: Chronic Report of Operation Date of Procedure: 08/22/18 Pre-Operative Diagnosis: Lumbosacral radiculopathy, lumbosacral generative disc disease, lumbosacral spinal stenosis Post-Operative Diagnosis: Lumbosacral radiculopathy, lumbosacral degenerative disc disease, lumbosacral spinal stenosis Surgery/Procedure Performed:: 1-insertion of percutaneous thoracolumbar spinal cord stimulator x1-lead, 2-analysis and programming of spinal cord stimulator 3- fluoroscopic guidance and interpretation Description of Surgical Findings:: PROCEDURES: 1. Insertion of percutaneous thoracolumbar spinal cord stimulator lead x1 2. Analysis and programming of spinal cord stimulator 3. Fluoroscopic interpretation PREOPERATIVE DIAGNOSES: Lumbosacral radiculopathy, lumbosacral degenerative disc disease, lumbosacral spinal stenosis POSTOPERATIVE DIAGNOSES: Lumbosacral radiculopathy, lumbosacral degenerative disc disease, lumbosacral spinal stenosis ANESTHESIA: MAC COMPLICATIONS: None BLOOD LOSS: Minimal Implant devices, Medtronic lead lot number [id number] PROCEDURE IN DETAIL: History and physical today was reviewed. Risks and benefits of procedure explained. The patient understood, agreed to procedure, informed consent was obtained. IV inserted per routine protocol. The patient was taken to the operating room, placed in the prone position with a pillow positioned underneath the chest. A 2 g of Ancef IV piggyback was infused per anesthesia. The upper and middle back area was prepped and draped in a sterile fashion using iodine x3, and [place]an under direct visualization with fluoroscopy with the C-arm, which brought into position on AP as well as lateral view at the L1-L2 intervertebral bodies and interlaminar space was identified under direct relation fluoroscopy starting on the left paramedian approach skin and subcutaneous tissue and size approximately 15 cc of preservative-free mix of 0.25% Marcaine with 2% lidocaine using a 25-gauge regular needle followed by a 25-gauge 3-1/2 inch spinal needle towards the interlaminar space at L1 to the skin was then nicked with a 11-gauge blade, utilizing a 14-gauge 3-1/2 inch curved tipped to the needle provided by the Medtronic kit the needle passed through the skin the tip of the needle was maneuvering directed towards the interlaminar space at L1-L2 stylette of the needle was then removed and under direct visualization of fluoroscopy on AP as well as lateral view loss of resistance was encountered to air the spinal cord stimulator lead was then inserted through the needle towards the interlaminar space confirmation was then obtained on AP as well as lateral view to confirm correct placement of the needle as well as posterior compartment placement of the spinal cord stimulator lead the lead was then advanced under direct life fluoroscopy with the tip of the lead to T8 level at approximately mid anatomical line repeated confirmation was then obtained on AP as well as lateral view to confirm correct placement of the lead in the posterior compartment of the epidural space patient was then awakened and direct stimulation was then obtained by the Medtronic rep once satisfactory coverage of the painful area was then obtained with a spinal cord stimulator lead at the thoracolumbar area the stylette of the lead was then removed intact and the needle was then removed from the skin keeping the spinal cord stimulator lead in place repeated confirmation AP as well as lateral view to avoid any migration of the leads cephalocaudad direction once confirmed the lead was then secured to the skin with the biwinged anchor provided by the Medtronic kit, the lead was then secured to the skin with a 4-0 nylon, the area was then was dressed with bacitracin followed by Tegaderm and the spinal cord stimulator lead was then connected to the external spinal cord stimulator device and attached to the left of the patient's lumbar region the area was then dressed in a sterile fashion patient was then turned into supine position patient was able mobilize bilateral lower extremities without any apparent difficulty or any complication the procedure was completed and the patient appeared to tolerate well, patient was then transferred to PACU in a stable condition further analysis and programming of spinal cord stimulator was then achieved at the recovery area. ESTIMATED BLOOD LOSS: Minimal less than 10 mL ASSESSMENT AND PLAN: This is a 83-year-old female with lumbosacral radiculopathy, lumbosacral degenerative disc disease, lumbosacral spinal stenosis status post insertion of a percutaneous thoracolumbar spinal cord stimulator x1-lead, analysis and programming of a spinal cord stimulator, interpretation of fluoroscopic images. The patient will continue her current medication. A prescription was given to the patient for Keflex 500 mg 1 p.o. every 8 hours for 7 days instruction was given to the patient verbally as well as in writing. The patient will follow-up in approximately 3 to 4 days for re-evaluation.
== END 2018-08-22 15:20 | disposition home or self-care (01) ==
LOC: SDC 10:25 → AC 12:51
PROVIDERS: Family Provider Family Medicine; PCP Family Medicine; Referring Provider Anesthesiology Pain Medicine; Visit Provider Anesthesiology Pain Medicine
PROC: (CPT 63650; principal; 2018-08-22 11:30)
DX: M51.17 Intervertebral disc disorders with radiculopathy, lumbosacral region (principal); M51.37 Other intervertebral disc degeneration, lumbosacral region; M47.27 Other spondylosis with radiculopathy, lumbosacral region; M53.3 Sacrococcygeal disorders, not elsewhere classified; M43.16 Spondylolisthesis, lumbar region; M50.30 Other cervical disc degeneration, unspecified cervical region; M48.02 Spinal stenosis, cervical region; M47.812 Spondylosis without myelopathy or radiculopathy, cervical region; M48.07 Spinal stenosis, lumbosacral region; I10 Essential (primary) hypertension; E78.5 Hyperlipidemia, unspecified; M19.90 Unspecified osteoarthritis, unspecified site; K21.9 Gastro-esophageal reflux disease without esophagitis; Z78.0 Asymptomatic menopausal state; Z79.899 Other long term (current) drug therapy; Z79.891 Long term (current) use of opiate analgesic; Z85.828 Personal history of other malignant neoplasm of skin; Z86.2 Personal history of diseases of the blood and blood-forming organs and certain disorders involving the immune mechanism
CPT/HCPCS: 63650; 95971; 72100; 76000; J7120; J2405

== ENCOUNTER → 2018-09-27 13:21 | Outpatient (CLI) | payer MEDICARE, SELFPAY ==
[2018-09-27 12:58] VITALS: BMI 26.8
--- NOTE | 2018-09-27 13:23 | RAD_ITS ---
STUDY: X-RAY - THORACIC SPINE REASON FOR EXAM: Female, 83 years old. Back pain. TECHNIQUE: 2 view(s) of the thoracic spine were obtained. COMPARISON: None. FINDINGS: Generalized osteopenia. Normal kyphosis of the thoracic spine. Rotatory levoscoliosis of the lumbar spine. Normal thoracic vertebrae and endplates. Diffuse mild intervertebral disc space narrowing with small osteophytes. Granulomatous calcifications in the right lung. Cardiomegaly. RAD/Thoracic Spine 2 Views IMPRESSION: Osteopenia with thoracic spondylosis. No acute finding. Electronically Signed: Jeyson Ríos MD at 13:40 EDT , Service support ,
== END ==
PROVIDERS: Family Provider Family Medicine; PCP Family Medicine; Referring Provider Orthopaedic Surgery; Visit Provider Orthopaedic Surgery
DX: M54.9 Dorsalgia, unspecified (principal)
CPT/HCPCS: 72070

== ENCOUNTER 2018-10-24 09:59 | Day surgery (SDC) | payer MEDICARE, SELFPAY ==
[2018-09-27 12:58] VITALS: BMI 26.8
[2018-10-24 10:49] VITALS: BP 159/60; PULSE 63; RESP 14; TEMP 36.6; O2SAT 96; BMI 26.5
[2018-10-24] MEDS: Cefazolin 2 GM in 0.9% Normal Saline 100 ML IV (11:33)
--- NOTE | 2018-10-24 11:35 | RAD_ITS ---
HISTORY: THORACOLUMBAR SPINAL CORD STIMULATOR, PERMANENT QLJ314.5 SEC, 58.73 MGY, 7 IMAGES TECHNIQUE: Multiple AP and lateral intraoperative fluoroscopic spot views of the thoracic spine Number of images including paperwork: 8 COMPARISON: 09/27/2018 FINDINGS: Images for intraoperative fluoroscopic guidance show spinal stimulator leads in the dorsal spinal canal. Level numbering difficult due to coned images but tubes appear to be in the mid to lower thoracic region. No gross osseous abnormality is seen on the provided images. RAD/Lumbar Spine 2 or 3 Views IMPRESSION: Intraoperative fluoroscopic guidance. Refer to operative report. at 2220 Reported and signed by: Savi Adler MD Electronically Signed: Savi Adler MD at 22:19 EDT Tel , Service support ,
[2018-10-24] MEDS: Bupivacaine 0.25% 30 ML Vial (11:50)
[2018-10-24] MEDS: Bacitracin 500 UNITS/GM PACKET (13:10)
[2018-10-24 13:25] VITALS: BP 113/51; BP 159/60; PULSE 63; RESP 14; TEMP 36.7; O2SAT 97
[2018-10-24 13:32] VITALS: BP 122/64; BP 159/60; PULSE 63; RESP 14; O2SAT 99
[2018-10-24 13:35] VITALS: BP 129/71; BP 159/60; PULSE 62; RESP 16; TEMP 36.7; O2SAT 100
[2018-10-24 14:48] VITALS: BP 159/60
--- NOTE | 2018-10-24 17:47 | PCM.OPRPT ---
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 (2) Lumbosacral radiculitis Status: Chronic (3) Lumbosacral spondylosis Status: Chronic (4) Spinal stenosis of lumbosacral region Status: Chronic Report of Operation Date of Procedure: 10/24/18 Pre-Operative Diagnosis: Lumbosacral radiculopathy, lumbosacral degenerative disc disease, lumbar sacral spinal stenosis, lumbosacral spondylosis Post-Operative Diagnosis: Lumbosacral radiculopathy, lumbosacral degenerative disc disease, lumbar sacral spinal stenosis, lumbar sacral spondylosis Surgery/Procedure Performed:: 1-Spinal cord stimulator thoracal lumbar leads permanent placement x2,. 2-spinal cord stimulator generator implant. 3-fluoroscopic guidance Description of Surgical Findings:: PROCEDURES: 1. Spinal cord stimulator thoracolumbar leads placement x2 #2 spinal cord stimulator Medtronic intellus generator placement #3 spinal cord stimulator generator pocket creation at the left gluteal region #4 spinal cord stimulator simple programming #5 fluoroscopic guidance PREOPERATIVE DIAGNOSES: Lumbosacral radiculopathy, lumbosacral degenerative disc disease, lumbosacral spinal stenosis. POSTOPERATIVE DIAGNOSES: Lumbosacral radiculopathy, lumbosacral degenerative disc disease, lumbosacral spinal stenosis. ANESTHESIA: MAC COMPLICATIONS: None BLOOD LOSS: Minimal Implanted device: Spinal cord stimulator lead [id number] lot number [id number], lead #2 lot number [id number], Medtronic spinal cord stimulator generator intellus serial number [id number] PROCEDURE IN DETAIL: History and physical today was reviewed. Risks and benefits of procedure explained. The patient understood, agreed to procedure, informed consent was obtained. IV inserted per routine protocol. The patient was taken to the operating room, placed in the prone position with a pillow positioned underneath the abdomen. A 2 g of Ancef IV piggyback was infused per anesthesia. The lower back and left gluteal area was prepped and draped in a sterile fashion using iodine x3. The C-arm was brought in position for AP view at the L1-2 vertebral bodies under direct visualization fluoroscopy on a true AP view the L1-2 interlaminar space was identified skin and subcutaneous tissue and size approximately 10 cc of a mix of 2% lidocaine and 0.25% Marcaine using a 25-gauge regular needle followed by a 25-gauge 3-1/2 inch spinal needle towards the interlaminar space at L1-2, the skin and subcutaneous tissue were then anesthetized and using an 11-gauge blade was then taken down to the skin and subcutaneous tissue using a 14-gauge 3-1/2 inch Touhy needle provided by the [employer] kit the needle was passed through the skin towards the interlaminar space at L1-2 and a paramedian approach the needle was then advanced under direct visualization fluoroscopy towards the interlaminar space at L1-2 [id number] technique was then carried to air towards the interlaminar space at L3-4 once the tip of the needle was in the epidural space and loss of resistance was encountered to air and after confirmation of AP as well as oblique view of the spinal cord stimulator lead was then advanced under direct visualization fluoroscopy to be at the tip of the lead at T8 and the bottom of the lead around mid T10 after confirmation of AP as well as lateral view to confirm correct placement of the lead in the posterior compartment of the epidural space the previous procedure was then repeated to a level above at L2-3 interlaminar space the second lead was then inserted under direct visualization with fluoroscopy to be at the mid T8 and mid T10 area the leads were were then connected to the external neurostimulator and patient was then awakened to confirm satisfactory coverage of the painful area once satisfactory coverage was then achieved the stylette of each needle was then removed and the skin and subcutaneous tissue on to the left of the paramedian needles was then taken anesthetized with a total of 10 cc of the previous mixture of 0.25% Marcaine and 2% lidocaine using a 25-gauge regular needle the incision was then taken down through the skin and subcutaneous tissue towards the fascia making sure hemostasis was then maintained via cautery the spinal cord stimulator leads were then passed through the above incision and secured using the bitewing and sutured down with a 2-0 nylon to the fascia at that level the spinal cord stimulator leads were then tunneled via a tunneler provided by the Medtronic kit towards the previously incised spinal cord stimulator battery at the left gluteal region skin and subcutaneous tissue were anesthetized with approximately 10 cc of a mix of 2% lidocaine and 0.25% Marcaine using a 25 gauge regular needle, skin and subcutaneous tissue was then taken down with the 11-gauge blade hemostasis was maintained with Bovie and direct pressure the incision was then taken down to the fascia and the battery was then visualized the 2-0 nylon sutures that were the spinal cord stimulator leads the upper lead was then marked the new until spinal cord stimulator battery was then provided Via [employer] kit the battery was then reattached of the spinal cord stimulator make ensure that the top lead is attached to the top position from 0-7 electrodes and the bottom from 8-15 electrodes once impedance was then checked to be in the proper average number the intellus battery was then inserted into the pocket and impedance with when checked again the pocket was then inspected to confirm hemostasis in place, the intellus battery was then secured to the fascia using a 2-0 silk to the upper and lower eyes of the battery confirming an upward writing of the intellus facing posterior, once complete confirmation the battery was then placed in the position and the the mid paramedian and the gluteal incisions were then closed primarily through a 3-0 Vicryl in a interrupted fashion followed by a 4-0 Vicryl to the skin, hemostasis was then maintained during the procedure the skin was then covered with a Steri-Strips and bacitracin patient was then returned into the supine position in a stable condition and returned to recovery in a stable condition patient experienced no signs or symptoms of intrathecal or intravascular injection patient experienced no paresthesia the procedure was completed without any apparent difficulty any complication the patient appeared to tolerate well ESTIMATED BLOOD LOSS: Minimal less than 25 mL ASSESSMENT AND PLAN: This is an 83-year-old female with lumbosacral radiculopathy, lumbosacral degenerative disc disease lumbosacral spinal stenosis status post 1. Spinal cord stimulator thoracolumbar leads placement x2 #2 spinal cord stimulator Medtronic intellus generator placement #3 spinal cord stimulator generator pocket creation at the left gluteal region #4 spinal cord stimulator simple programming and fluoroscopic guidance patient will continue her current medications a prescription was provided to the patient for [place] 5/325 1 p.o. every 6 hours as needed acute postoperative pain and Keflex 500 mg 1 p.o. every 8 hours for 7 days postop instruction were given in writing to the patient as well as verbally and in writing to his patient will follow approximately 1 week for reevaluation
== END 2018-10-24 14:55 | disposition home or self-care (01) ==
LOC: SDC 09:59 → AC 10:12
PROVIDERS: Family Provider Family Medicine; PCP Family Medicine; Referring Provider Anesthesiology Pain Medicine; Visit Provider Anesthesiology Pain Medicine
PROC: (CPT 63685; principal; 2018-10-24 10:55)
DX: M51.37 Other intervertebral disc degeneration, lumbosacral region (principal); M51.17 Intervertebral disc disorders with radiculopathy, lumbosacral region; M48.07 Spinal stenosis, lumbosacral region; M47.27 Other spondylosis with radiculopathy, lumbosacral region; I10 Essential (primary) hypertension; K21.9 Gastro-esophageal reflux disease without esophagitis; Z78.0 Asymptomatic menopausal state; Z85.828 Personal history of other malignant neoplasm of skin; Z79.899 Other long term (current) drug therapy
CPT/HCPCS: 63650 ×2; 63685; 95971; 72100; 76000; C1778; J7120

== ENCOUNTER 2019-02-04 09:15 | Emergency (ER) | payer MEDICARE, SELFPAY ==
[2019-02-04 09:18] VITALS: BP 155/69; PULSE 84; RESP 12; TEMP 36.3; O2SAT 97; BMI 27.1
[2019-02-04 09:48] VITALS: PULSE 69; RESP 18; O2SAT 97
[2019-02-04] MEDS: 0.9% Normal Saline 1,000 ML 150 ML IV (09:55)
[2019-02-04 09:58] LABS: Absolute Lymphocyte Count 1.05 X10^3/uL (0.83-4.51); Absolute Neutrophil Count 4.3 X10^3/uL (2.0-7.7); Basophil# 0.05 X10^3/uL; Basophil% 0.8 % (0-1); Eosinophil# 0.19 X10^3/uL; Hematocrit 38.5 % (37-47); Hemoglobin 12.5 g/dL (12.0-15.0); Lymphocyte # 1.05 X10^3/ul (4.0); Lymphocyte % 16.8 % (19-41); Mean Corp Hgb Conc 32.5 g/dL (32-36); Mean Corpuscular Hgb 30.6 pg (27.0-32.0); Mean Corpuscular Volume 94.1 fL (81-99); Monocyte# 0.59 X10^3/uL; Monocyte% 9.5 % (0-10); NRBC Flagged by Analyzer 0 % (0-5); Neutrophil # 4.34 X10^3/uL (2.7-7.7); Neutrophil % 69.6 % (47-70); Platelet Count 298 K/mm3 (150-450); RBC Distribution Width CV 12.6 % (11.6-14.6); RBC Distribution Width SD 43.7 fl (35.1-43.9); Red Blood Count 4.09 M/mm3 (4.2-5.4); White Blood Count 6.2 K/mm3 (4.4-11.0)
[2019-02-04 10:02] LABS: International Normalized Ratio 1.2; Partial Thromboplast Time 33.7 Seconds (24.1-36.2); Prothrombin Time (Protime)PT. 14.8 SECONDS (11.7-14.9)
[2019-02-04 10:07] LABS: Anion Gap 6 (5-15); BUN 20 mg/dL (7-18); BUN/Creat Ratio 21.6 RATIO (10-20); Calcium,Total 9.2 mg/dL (8.5-10.1); Chloride 106 mmol/L (98-107); Creatinine, Serum 0.92 mg/dL (0.55-1.02); EST Glomerular Filtration Rate 62 mL/min (>60); Est Glom Filt Rate - Afr Amer 75 mL/min (>60); Estimated Creatinine Clearance 39.67 ml/min; Glucose 94 mg/dL (74-106); Potassium 3.6 mmol/L (3.5-5.1); Sodium Level 139 mmol/L (136-145)
[2019-02-04 10:47] LABS: Mucous, Urine 0 SEEN /hpf (<or=2+); Red Blood Cells-Urine 0 SEEN /hpf (0-5)
[2019-02-04 10:55] LABS: Color, Urine Yellow (Yellow); Glucose, Dipstick Normal (Normal); Ketone-Dipstick Negative (Negative); Leukocyte Esterase-Dipstick 25 /ul (Negative); Nitrite-Dipstick Negative (Negative); Occult Blood-Urine 25 /ul (Negative); Protein-Dipstick 30 mg/dl (Negative); Urine Bilirubin Dipstick Negative (Negative); Urine Clarity Clear (Clear); Urine Urobilinogen Normal (Normal); Urine pH 6.5 (5.0 - 8.0)
[2019-02-04 11:01] LABS: Bacteria RARE /hpf (None Seen); Squamous Epithelial Cells - UA 5-10 SEEN /hpf (5-10); White Blood Cells 0-5 SEEN /hpf (0-5)
--- NOTE | 2019-02-04 11:18 | ED.VIS.GEN ---
History of Present Illness Chief Complaint: GI Bleed Informant: Patient Onset: Days - 3 days Timing: Intermittent Current Severity: Mild Maximum Severity: Moderate Narrative: Patient presents with intermittent bleeding from the rectum for the past 3 days. She states she notices the bleeding when she urinates, but not when she has a bowel movement. She states she will bleed quite a bit but is able to stop the bleeding. She does have a history of hemorrhoids but states she has not had any problem with them recently. She is currently on Macrobid for a UTI. - Past Medical History (1) Osteoarthritis Status: Chronic (2) HTN (hypertension) Status: Chronic (3) History of atrial fibrillation Status: Chronic (4) Hyperlipidemia Status: Chronic Past Medical History - Allergies and Home Meds Allergies/Adverse Reactions: Allergies codeine Adverse Reaction (Verified 02/04/19 09:17) Upset Stomach Primary Care Physician: Giuseppe Bennett MD [STAFF PHYSICIAN] - 3-5 Days if not improving Prior records reviewed: Yes Surgical History: cholecystectomy, hysterectomy, - Lives: Alone Smoking Status: Never smoker - Family History Maternal Family History: Family History (Last Reviewed 07/26/18 @ 11:49 by Vane Geiger) Sister Alzheimer's disease Family History: Reports: Diabetes, Hypertension Review of Systems General: Denies: Chills, Fever Eyes: Denies: Visual changes - bilaterally ENT: Denies: Bilateral ear pain Cardiovascular: Denies: Chest pain Respiratory: Denies: Dyspnea, Cough Gastrointestinal: Denies: Abdominal pain, Nausea, Vomiting, Diarrhea Genitourinary: Denies: Dysuria Musculoskeletal: Denies: Back pain, Extremity Pain Skin: Denies: Rash Endocrine: Denies: Polyuria, Polydipsia Hematologic: Denies: Easy bruising Allergy: Denies: Uticaria Physical Exam Vital Signs/Narrative: Vital Signs Temp Pulse Resp BP Pulse Ox 02/04/19 09:48 69 18 97 02/04/19 09:18 97.3 F L 84 12 155/69 H 97 Inital Vital Signs reviewed: Yes General: Well nourished, Well developed Head: Normocephalic ENT: Moist mucous membranes Neck: Supple Cardiovascular: Regular rate, Regular rhythm Respiratory: No distress, CTA bilaterally Abdomen: Soft, Nontender Rectal: - - Fissure noted at the 6 o'clock position. Dried blood noted. No active bleeding. Extremities: Nontender, No edema Skin: Normal color Neurological: Alert, Oriented x3 Psychological: Normal affect Diagnostic/Tx/Re-eval Laboratory Results 02/04/19 02/04/19 02/04/19 09:45 09:45 09:45 WBC 6.2 RBC 4.09 L Hgb 12.5 Hct 38.5 MCV 94.1 MCH 30.6 MCHC 32.5 RDW Std Deviation 43.7 RDW Coeff of Bertrand 12.6 Plt Count 298 MPV 9.0 Immature Gran % (Auto) 0.300 Neut % (Auto) 69.6 Lymph % (Auto) 16.8 L [place] % (Auto) 9.5 Eos % (Auto) 3.0 Baso % (Auto) 0.8 Absolute Neuts (auto) 4.3 Absolute Lymphs (auto) 1.05 Nucleated RBC % 0 PT 14.8 INR 1.2 APTT 33.7 Sodium 139 Potassium 3.6 Chloride 106 Carbon Dioxide 27.0 Anion Gap 6 BUN 20 H Creatinine 0.92 Estim Creat Clear Calc 39.67 Est GFR (MDRD) Af Amer 75 Est GFR (MDRD) Non-Af 62 BUN/Creatinine Ratio 21.6 H Glucose 94 Calcium 9.2 Urine Color Urine Clarity Urine pH Ur Specific [place] Urine Protein Urine Glucose (UA) Urine Ketones Urine Occult Blood Urine Nitrite Urine Bilirubin Urine Urobilinogen Ur Leukocyte Esterase Urine RBC Urine WBC Ur Squamous Epith Cells Urine Bacteria Urine Mucus 02/04/19 10:40 WBC RBC Hgb Hct MCV MCH MCHC RDW Std Deviation RDW Coeff of Bertrand Plt Count MPV Immature Gran % (Auto) Neut % (Auto) Lymph % (Auto) [place] % (Auto) Eos % (Auto) Baso % (Auto) Absolute Neuts (auto) Absolute Lymphs (auto) Nucleated RBC % PT INR APTT Sodium Potassium Chloride Carbon Dioxide Anion Gap BUN Creatinine Estim Creat Clear Calc Est GFR (MDRD) Af Amer Est GFR (MDRD) Non-Af BUN/Creatinine Ratio Glucose Calcium Urine Color Yellow Urine Clarity Clear Urine pH 6.5 Ur Specific [place] 1.010 Urine Protein 30 H Urine Glucose (UA) Normal Urine Ketones Negative Urine Occult Blood 25 H Urine Nitrite Negative Urine Bilirubin Negative Urine Urobilinogen Normal Ur Leukocyte Esterase 25 H Urine RBC 0 SEEN Urine WBC 0-5 SEEN Ur Squamous Epith Cells 5-10 SEEN Urine Bacteria RARE Urine Mucus 0 SEEN - Medical Decision Making Patient was given IV fluids. Vital signs are stable. Patient was able to get up to the restroom here and had no further bleeding at this time. She will use stool softeners and will follow up with Dr. Bennett if not improving. ED Disposition - Plan for ED Patient: Disposition: Home or Assisted Living Diagnosis: Fissure in ano Instructions: RECTAL BLEED, Stable Referrals: Giuseppe Bennett MD [STAFF PHYSICIAN] - 3-5 Days if not improving
[2019-02-04 11:30] VITALS: BP 162/66; PULSE 60; RESP 13; O2SAT 97
== END 2019-02-04 11:50 | disposition home or self-care (01) ==
PROVIDERS: Emergency Provider Emergency Medicine; Family Provider Family Medicine; PCP Family Medicine
DX: K60.2 Anal fissure, unspecified (principal); N39.0 Urinary tract infection, site not specified; K64.9 Unspecified hemorrhoids; I48.91 Unspecified atrial fibrillation; I10 Essential (primary) hypertension; E78.5 Hyperlipidemia, unspecified; M19.90 Unspecified osteoarthritis, unspecified site; Z79.899 Other long term (current) drug therapy; Z88.5 Allergy status to narcotic agent; Z90.49 Acquired absence of other specified parts of digestive tract; Z90.710 Acquired absence of both cervix and uterus
CPT/HCPCS: 80048; 81001; 85025; 85610; 85730; 96360; 96361; 99285; J7030; A4216

== ENCOUNTER 2019-05-06 17:13 | Emergency (ER) | payer MEDICARE, SELFPAY ==
[2019-04-28 10:37] VITALS: BMI 27.3
[2019-05-06 17:14] VITALS: BP 161/89; PULSE 92; RESP 17; TEMP 36.4; O2SAT 99; BMI 27.1
--- NOTE | 2019-05-06 17:37 | ED.DCSUM_ITS ---
History of Present Illness Chief Complaint: Hypertension Informant: Patient Onset: Days Narrative: Patient presents due to concern for hypertension. She was seen by her crib pad maker, Dr. Deshpande, on the ninth of this month. She was taken off of metoprolol 100 mg extended release tabs and placed on carvedilol 12.5 mg twice daily. She continues to take her lisinopril 40 mg a day. Patient has been monitoring her blood pressure since this medication change and it is slowly been increasing. Today she had blood pressure reading of 191/101. Overall range since the medication change reveals 139-191/72-101. Patient states today after eating lunch with her grandson she felt very bloated in her abdomen. She had urinary frequency with just a slight dysuria as well. 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 (2) DDD (degenerative disc disease), cervical Status: Chronic (3) Spinal stenosis of lumbosacral region Status: Chronic (4) History of atrial fibrillation Status: Chronic (5) Hyperlipidemia Status: Chronic (6) HTN (hypertension) Status: Chronic Past Medical History - Allergies and Home Meds Allergies/Adverse Reactions: Allergies codeine Adverse Reaction (Verified 05/06/19 17:13) Upset Stomach Primary Care Physician: Isaías Royal III, MD [Primary Care Provider] - Prior records reviewed: Yes Surgical History: cholecystectomy, hysterectomy, - Lives: With Family Smoking Status: Never smoker - Family History Maternal Family History: Family History (Last Reviewed 04/28/19 @ 10:37 by Vane Geiger) Sister Alzheimer's disease Family History: Reports: Diabetes, Hypertension Review of Systems General: Reports: Chills. Denies: Fever Eyes: Denies: Visual changes - bilaterally ENT: Denies: Bilateral ear pain Cardiovascular: Denies: Chest pain Respiratory: Denies: Dyspnea, Cough Gastrointestinal: Reports: Abdominal pain - Bloated. Denies: Vomiting, Diarrhea Genitourinary: Reports: Dysuria, Frequency Musculoskeletal: Denies: Swelling, Extremity Pain Skin: Denies: Rash Neurological: Denies: Headache Allergy: Denies: Uticaria Physical Exam Vital Signs/Narrative: Vital Signs Temp Pulse Resp BP Pulse Ox 05/06/19 17:14 97.6 F L 92 17 161/89 H 99 Inital Vital Signs reviewed: Yes General: Well nourished, Well developed Head: Normocephalic ENT: Moist mucous membranes Neck: Supple Cardiovascular: Regular rate, Regular rhythm Respiratory: No distress, CTA bilaterally Abdomen: Soft, Nontender, Normal bowel sounds Extremities: Nontender Skin: Normal color, No rash Neurological: Alert, Oriented x3 Psychological: Normal affect Diagnostic/Tx/Re-eval Laboratory Results 05/06/19 05/06/19 05/06/19 17:57 17:57 19:20 WBC 8.0 RBC 3.80 L Hgb 11.5 L Hct 35.3 L MCV 92.9 MCH 30.3 MCHC 32.6 RDW Std Deviation 42.9 RDW Coeff of Bertrand 12.5 Plt Count 254 MPV 9.0 Immature Gran % (Auto) 0.600 Neut % (Auto) 72.3 H Lymph % (Auto) 14.1 L [place] % (Auto) 9.9 Eos % (Auto) 2.6 Baso % (Auto) 0.5 Absolute Neuts (auto) 5.7 Absolute Lymphs (auto) 1.12 Nucleated RBC % 0 Sodium 138 Potassium 4.0 Chloride 107 Carbon Dioxide 27.0 Anion Gap 4 L BUN 21 H Creatinine 0.81 Estim Creat Clear Calc 44.30 Est GFR (MDRD) Af Amer 87 Est GFR (MDRD) Non-Af 72 BUN/Creatinine Ratio 26.0 H Glucose 108 H Calcium 9.0 Urine Color Yellow Urine Clarity Clear Urine pH 7.0 Ur Specific [place] 1.010 Urine Protein 15 H Urine Glucose (UA) Normal Urine Ketones Negative Urine Occult Blood 25 H Urine Nitrite Negative Urine Bilirubin Negative Urine Urobilinogen Normal Ur Leukocyte Esterase Negative Urine RBC 0-5 SEEN Urine WBC 0 SEEN Ur Squamous Epith Cells 0 SEEN Urine Bacteria RARE Urine Mucus 0 SEEN - EKG Initial EKG Interpretation: Sinus Rhythm - Sinus at 71 with no acute ischemia. - Medical Decision Making Test results are discussed with patient and family at bedside. Blood pressure at the time of my repeat exam was 167/116. I spoke with Dr. Deshpande and he asked that the patient double her carvedilol dose to 25 mg twice a day. Patient will make that change starting tonight and will keep a log of her blood pressures. ED Disposition - Plan for ED Patient: Disposition: Home or Assisted Living Diagnosis: Hypertension Instructions: HYPERTENSION, Established, Out of Control Referrals: Isaías Royal III, MD [Primary Care Provider] - Diony Deshpande MD [STAFF PHYSICIAN] - 1-2 Weeks
--- NOTE | 2019-05-06 17:37 | EKG12_ITS ---
Test Reason : HIGH BP Blood Pressure : / mmHG Vent. Rate : 071 BPM Atrial Rate : 071 BPM P-R Int : 186 ms QRS Dur : 082 ms QT Int : 430 ms P-R-T Axes : 060 011 032 degrees QTc Int : 467 ms Normal sinus rhythm Normal ECG Confirmed by JANY BRAVO, ELIZABET ([id number]), video tape editor SUREKHA NOLAN ([id number]) on 05/10/2019 8:52:05 AM Referred By: SHERI Confirmed By:ELIZABET CARMICHAEL MD
[2019-05-06 18:14] LABS: Absolute Lymphocyte Count 1.12 X10^3/uL (0.83-4.51); Absolute Neutrophil Count 5.7 X10^3/uL (2.0-7.7); Basophil# 0.04 X10^3/uL; Basophil% 0.5 % (0-1); Eosinophil# 0.21 X10^3/uL; Eosinophils% 2.6 % (0-5); Hematocrit 35.3 % (37-47); Hemoglobin 11.5 g/dL (12.0-15.0); Lymphocyte # 1.12 X10^3/ul (4.0); Lymphocyte % 14.1 % (19-41); Mean Corp Hgb Conc 32.6 g/dL (32-36); Mean Corpuscular Hgb 30.3 pg (27.0-32.0); Mean Corpuscular Volume 92.9 fL (81-99); Monocyte# 0.79 X10^3/uL; Monocyte% 9.9 % (0-10); NRBC Flagged by Analyzer 0 % (0-5); Neutrophil # 5.74 X10^3/uL (2.7-7.7); Neutrophil % 72.3 % (47-70); Platelet Count 254 K/mm3 (150-450); RBC Distribution Width CV 12.5 % (11.6-14.6); RBC Distribution Width SD 42.9 fl (35.1-43.9)
[2019-05-06 18:22] LABS: Anion Gap 4 (5-15); BUN 21 mg/dL (7-18); Chloride 107 mmol/L (98-107); Creatinine, Serum 0.81 mg/dL (0.55-1.02); EST Glomerular Filtration Rate 72 mL/min (>60); Est Glom Filt Rate - Afr Amer 87 mL/min (>60); Glucose 108 mg/dL (74-106); Sodium Level 138 mmol/L (136-145)
[2019-05-06 19:32] LABS: Color, Urine Yellow (Yellow); Glucose, Dipstick Normal (Normal); Ketone-Dipstick Negative (Negative); Leukocyte Esterase-Dipstick Negative /ul (Negative); Mucous, Urine 0 SEEN /hpf (<or=2+); Nitrite-Dipstick Negative (Negative); Occult Blood-Urine 25 /ul (Negative); Protein-Dipstick 15 mg/dl (Negative); Squamous Epithelial Cells - UA 0 SEEN /hpf (5-10); Urine Bilirubin Dipstick Negative (Negative); Urine Clarity Clear (Clear); Urine Urobilinogen Normal (Normal); White Blood Cells 0 SEEN /hpf (0-5)
[2019-05-06 19:43] VITALS: BP 164/79; PULSE 72; RESP 13; O2SAT 98
[2019-05-06 19:45] LABS: Bacteria RARE /hpf (None Seen); Red Blood Cells-Urine 0-5 SEEN /hpf (0-5)
[2019-05-06 20:29] VITALS: BP 168/78; PULSE 82; RESP 14; O2SAT 98
== END 2019-05-06 20:29 | disposition home or self-care (01) ==
PROVIDERS: Emergency Provider Emergency Medicine; PCP Family Medicine
DX: I10 Essential (primary) hypertension (principal); R30.0 Dysuria; R35.0 Frequency of micturition; I48.20 Chronic atrial fibrillation, unspecified; E78.5 Hyperlipidemia, unspecified; M50.30 Other cervical disc degeneration, unspecified cervical region; M47.812 Spondylosis without myelopathy or radiculopathy, cervical region; M48.07 Spinal stenosis, lumbosacral region; Z79.899 Other long term (current) drug therapy; Z88.5 Allergy status to narcotic agent; Z90.710 Acquired absence of both cervix and uterus; Z90.49 Acquired absence of other specified parts of digestive tract
CPT/HCPCS: 80048; 81001; 85025; 93005; 99284; A4216

== ENCOUNTER → 2019-05-10 13:53 | Outpatient (CLI) | payer MEDICARE, SELFPAY ==
[2019-04-28 10:37] VITALS: BMI 27.3
[2019-05-06 17:14] VITALS: BMI 27.1
--- NOTE | 2019-05-10 13:54 | ECHOD_ITS ---
Reason For Study: DYPSNEA/SOB Procedure This was a 2D Doppler, Color Flow transthoracic echocardiogram. Exam performed in department. Left Ventricle Normal size and thickness. The estimated ejection fraction is 65 %. Stage 2 diastolic dysfunction. No regional wall motion abnormalities noted. Right Ventricle Normal size and thickness. A moderator band is seen in the right ventricle. Normal systolic function. Atria The left atrium is mildly enlarged. Normal right atrium. Normal atrial septum. Mitral Valve Mild diffuse mitral valve thickening. Mild-Moderate (1-2+) mitral valve insufficiency. Tricuspid Valve Normal tricuspid valve. Trivial tricuspid valve insufficiency. Right ventricular systolic pressure estimated to be 43 mmHg. Mild pulmonary hypertension. Aortic Valve Trisinus/trileaflet aortic valve. Pulmonic Valve Normal pulmonic valve. Trivial pulmonic valve insufficiency. Great Vessels Normal aortic root. Normal arch. Normal inferior vena cava. Inferior vena cava collapse with sniff. Pericardium/Pleural No pericardial effusion. MMode/2D Measurements & Calculations LVIDd: 4.7 cm IVSd: 0.98 cm Ao root diam: 3.2 cm LVIDs: 3.1 cm LVPWd: 0.99 cm RVDd: 2.4 cm FS: 35.3 % LAV(MOD-bp): 67.8 ml LVAd ap4: 27.0 cm2 SV(MOD-sp4): 57.3 ml LAV(MOD-bp) Indexed: 39.5 ml/m2 EDV(MOD-sp4): 86.8 ml LAV(MOD-sp2): 72.4 ml EDV(sp4-el): 90.4 ml LAV(MOD-sp4): 62.2 ml LVAs ap4: 13.7 cm2 ESV(MOD-sp4): 29.4 ml ESV(sp4-el): 29.9 ml EF(MOD-sp4): 66.1 % EF(sp4-el): 66.9 % SV(sp4-el): 60.5 ml LA A4 area: 22.5 cm2 RA A4 area: 19.3 cm2 Time Measurements MV dec time: 0.21 sec Doppler Measurements & Calculations MV E max quang: 109.0 cm/sec Lat Peak E' Quang: 8.2 cm/sec Med Peak E' Quang: 8.5 cm/sec MV A max quang: 67.5 cm/sec E/E' lat: 13.3 E/E' med: 12.8 MV E/A: 1.6 Ao V2 max: 159.0 cm/sec LV V1 max: 89.9 cm/sec PA V2 max: 94.8 cm/sec Ao max P.1 mmHg LV V1 max P.2 mmHg TR max quang: 306.6 cm/sec TR max P.6 mmHg Interpretation Summary The estimated ejection fraction is 65 %. Stage 2 diastolic dysfunction. The left atrium is mildly enlarged. Mild-Moderate (1-2+) mitral valve insufficiency. Trivial tricuspid valve insufficiency. Right ventricular systolic pressure estimated to be 43 mmHg. Mild pulmonary hypertension. Compared to echo report dated 03/31/17, LV function has remained the same, but RVSP has increased from 36 to 43 mm Hg. Ordering Physician: Diony Deshpande Referring Physician: EMERSON ARMANDO Performed By: Denisa Graff RDCS
== END ==
PROVIDERS: PCP Family Medicine; Referring Provider Internal Medicine Cardiovascular Disease; Visit Provider Internal Medicine Cardiovascular Disease
DX: I48.0 Paroxysmal atrial fibrillation (principal)
CPT/HCPCS: 93306

== ENCOUNTER → 2019-05-17 10:27 | Outpatient (CLI) | payer MEDICARE, SELFPAY ==
[2019-04-28 10:37] VITALS: BMI 27.3
[2019-05-06 17:14] VITALS: BMI 27.1
--- NOTE | 2019-05-17 10:28 | STE_ITS ---
Reason For Study: dyspnea Stress Results Protocol: Modified Tomy Stress Echo Maximum Predicted HR: 138 bpm Target HR: 117 bpm % Maximum Predicted HR: 83 % DurationHeart Rate Stage (mm:ss) (bpm) BP Comment baseline 77 150/76no chest pain stage 0 3:00 107 152/80no chest pain stage 1/2 3:00 114 170/80no chest pain stage 1 3:00 114 172/82mild shortness of breath, no chest pain, mild hip and back pain recovery 85 160/78no chest pain Stress Duration: 9:00 mm:ss Maximum Stress HR: 114 bpm Baseline Echocardiogram Findings The estimated ejection fraction is 60 %. Stress Echo Wall motion Data Resting WM Intermediate WM Stress WM Resting Wall Motion Wall Motion Stress No regional wall motion No regional wall motion abnormalities noted. abnormalities noted. EKG Data The baseline ECG displays normal sinus rhythm. This was 90% of maximum predicted heart rate. The maximum heart rate attained was 125 beats per minute. During stress, there were no ST or T wave changes noted to suggest ischemia. No clinical angina was noted. Interpretation Summary The estimated ejection fraction is 60 %. Normal, modified Tomy treadmill echocardiogram. Negative for ischemia by EKG and echocardiographic criteria. No anginal symptoms noted. Rare PAC and PVC noted. Appropriate blood pressure response to exercise. Average exercise capacity for age. Final LVEF of 65%. Test terminated due to target heart rate achieved. Patient tolerated procedure well. No complications. Ordering Physician: Diony Deshpande Referring Physician: Diony Deshpande Performed By: Denisa Graff RDCS
== END ==
PROVIDERS: PCP Family Medicine; Referring Provider Internal Medicine Cardiovascular Disease; Visit Provider Internal Medicine Cardiovascular Disease
DX: R06.09 Other forms of dyspnea (principal); I10 Essential (primary) hypertension; Z86.79 Personal history of other diseases of the circulatory system
CPT/HCPCS: 93017; 93350

== ENCOUNTER → 2019-05-31 17:31 | Outpatient (CLI) | payer MEDICARE, SELFPAY ==
[2019-05-06 17:14] VITALS: BMI 27.1
--- NOTE | 2019-05-31 18:15 | MRI_ITS ---
STUDY: MRI LUMBAR SPINE WITHOUT CONTRAST REASON FOR EXAM: Female, 84 years old. Worsening back pain TECHNIQUE: Standardized fat and water weighted pulse sequences were obtained in the sagittal and axial planes. COMPARISON: 24 October 2018, and January 2017 FINDINGS: Examination is mildly technically degraded. Sagittal images are fully diagnostic. Transverse images are partially effected by motion artifact and are centered on disc only without a complete stack. Diagnostic information is available. Spinal stimulator related artifact and electrode are present entering the canal at T11-T12. There is stable grade 1 anterolisthesis of L3 on L4 and L4 on L5, less than 4 mm. The rest of the spine is aligned. There is mild scoliosis. There are moderate degenerative endplate and disc changes at L1-L2 and L2-L3 and multilevel facet degeneration. Conus medullaris terminates at T12-L1. Cauda equina is restricted at multiple levels. T12-L1 has become thecal sac. L1-L2 has mild spondylotic thecal sac stenosis. L2-L3 has severe spondylotic thecal sac stenosis. L3-L4 has severe spondylotic thecal sac stenosis. L4-L5 has severe spondylotic canal compression and [id number] thecal sac stenosis. L5-S1 has patent thecal sac. There are multilevel various moderate and severe degree of foraminal stenosis. Appearance is similar to prior. MRI/Spine Lumbar (Routine) IMPRESSION: 1. No change since prior in 2017. 2. 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 Electronically Signed: Ryan Osborn, at 18:50 EDT Tel , Service support ,
== END ==
PROVIDERS: PCP Family Medicine; Referring Provider Anesthesiology Pain Medicine; Visit Provider Anesthesiology Pain Medicine
DX: M51.36 Other intervertebral disc degeneration, lumbar region (principal); M54.9 Dorsalgia, unspecified
CPT/HCPCS: 72148

== ENCOUNTER → 2019-08-24 11:58 | Outpatient (CLI) | payer MEDICARE, SELFPAY ==
[2019-08-24 10:57] VITALS: BMI 26.4
[2019-08-24 12:43] LABS: Absolute Lymphocyte Count 1.66 X10^3/uL (0.83-4.51); Absolute Neutrophil Count 9.5 X10^3/uL (2.0-7.7); Basophil# 0.02 X10^3/uL; Basophil% 0.2 % (0-1); Eosinophil# 0.18 X10^3/uL; Eosinophils% 1.4 % (0-5); Hematocrit 37.5 % (37-47); Hemoglobin 11.9 g/dL (12.0-15.0); Lymphocyte # 1.66 X10^3/ul (4.0); Lymphocyte % 13.1 % (19-41); Mean Corp Hgb Conc 31.7 g/dL (32-36); Mean Corpuscular Hgb 30.3 pg (27.0-32.0); Mean Corpuscular Volume 95.4 fL (81-99); Mean Platelet Vol. 9.3 fl (6.2-12.0); Monocyte# 1.16 X10^3/uL; Monocyte% 9.2 % (0-10); NRBC Flagged by Analyzer 0 % (0-5); Neutrophil # 9.54 X10^3/uL (2.7-7.7); Neutrophil % 75.3 % (47-70); Platelet Count 325 K/mm3 (150-450); RBC Distribution Width CV 13.7 % (11.6-14.6); RBC Distribution Width SD 47.8 fl (35.1-43.9); Red Blood Count 3.93 M/mm3 (4.2-5.4); White Blood Count 12.7 K/mm3 (4.4-11.0)
[2019-08-24 12:58] LABS: AST(SGOT) 34 U/L (15-37); Alanine Aminotransfer ALT/SGPT 24 U/L (13-56); Albumin, Serum 3.5 g/dL (3.2-5.0); Alkaline Phosphatase 91 U/L (45-117); Anion Gap 7 (5-15); BUN 28 mg/dL (7-18); Bilirubin, Direct 0.15 mg/dL (0.00-0.30); Calcium,Total 8.7 mg/dL (8.5-10.1); Chloride 99 mmol/L (98-107); EST Glomerular Filtration Rate 73 mL/min (>60); Est Glom Filt Rate - Afr Amer 88 mL/min (>60); Globulin 3.3 g/dL (2.2-4.2); Glucose 106 mg/dL (74-106); Magnesium 2.3 mg/dL (1.6-2.6); Protein, Total 6.8 g/dL (6.4-8.2); Sodium Level 134 mmol/L (136-145); T4 Free Direct 1.23 ng/dL (0.76-1.46); Thyroid Stim Hormone (TSH) 2.43 uIU/mL (0.358-3.74)
== END ==
PROVIDERS: PCP Family Medicine; Referring Provider Nurse Practitioner Family; Visit Provider Nurse Practitioner Family
DX: I48.0 Paroxysmal atrial fibrillation (principal); I10 Essential (primary) hypertension; E78.2 Mixed hyperlipidemia
CPT/HCPCS: 80048; 80076; 83735; 84439; 84443; 85025

== ENCOUNTER 2019-08-29 07:14 | Inpatient (IN) | payer MEDICARE, SELFPAY ==
[2019-08-24 10:57] VITALS: BMI 26.4
[2019-08-29] VITALS (10 sets, daily range): BP systolic 94–138; BP diastolic 60–86; PULSE 58–114; RESP 14–18; TEMP 36.1–36.9; O2SAT 94–100; BMI 26.0; BMI 26.9
--- NOTE | 2019-08-29 07:28 | EKG12_ITS ---
Test Reason : VOMITING Blood Pressure : / mmHG Vent. Rate : 072 BPM Atrial Rate : 277 BPM P-R Int : 000 ms QRS Dur : 084 ms QT Int : 426 ms P-R-T Axes : 000 046 052 degrees QTc Int : 466 ms Atrial fibrillation Nonspecific ST and T wave abnormality Abnormal ECG Confirmed by ABEL CEDEÑO ([id number]), editor map SUREKHA NOLAN ([id number]) on 08/31/2019 7:40:36 AM Referred By: MARCIN Confirmed By:ABEL CEDEÑO
--- NOTE | 2019-08-29 07:34 | ED.DCSUM_ITS ---
History of Present Illness Chief Complaint: Nausea/Vomiting Informant: Patient Onset: Today - around 4 hrs Context: - - woke up w/ sx Timing: Continuous Quality: abdominal bloating and nauseated Location: upper abdomen Current Severity: Moderate Maximum Severity: Moderate Worsened by: nothing Relieved by: nothing Associated Symptoms: no vomiting, diarrhea, dyspnea, chest pain, palpitations Narrative: Patient presenting with bloating and nausea, saying that she suspect she is dehydrated although it does not sound like she has a reason to be, she states she has been in the past when on diuretics but she is not on one right now, and being dehydrated tends to put her in the atrial fibrillation, and she suspect she is in atrial fibrillation right now. She admits that she has a history of chronic atrial fibrillation. She thinks it is paroxysmal, that she has times when she is not in it. She states she determines when she is in it or not by checking her pulse, and whether it is strong or not. She states that she could tell she was in A. fib this morning and now, which is why she presents to the ER. She states she feels heavy from the gut down but no heaviness in her chest. She states she does not have any symptoms in her chest, just her abdomen. She started Xarelto 5 days ago at a cardiology appointment. She does not know why she was not anticoagulated before that, even though she has a prior known history of A. fib. Further history indicates that this is not the first time she has had this, is basically been off and on ever since she started Xarelto 5 days ago, with regards to the bloating and nausea. This morning she tried Tums and Lactaid and neither 1 helped; she states she has had this before with lactose as she is lactose intolerant. The other day she tried Tums for this and that maybe helped a little. I asked if she had any bright red blood per rectum or melena, she states no she has not. She has had no lightheadedness or near syncope. - Past Medical History (1) DDD (degenerative disc disease), cervical Status: Chronic (2) Degeneration of lumbosacral intervertebral disc Status: Chronic (3) HTN (hypertension) Status: Chronic (4) Hyperlipidemia Status: Chronic (5) Osteoarthritis Status: Chronic (6) Paroxysmal atrial fibrillation Status: Chronic (7) Spinal stenosis of lumbosacral region Status: Chronic Past Medical History - Allergies and Home Meds Allergies/Adverse Reactions: Allergies codeine Adverse Reaction (Verified 08/29/19 07:14) Upset Stomach Primary Care Physician: Isaías Royal III, MD [Primary Care Provider] - Surgical History: cholecystectomy, hysterectomy Smoking Status: Never smoker - Family History Maternal Family History: Family History (Last Reviewed 04/28/19 @ 10:37 by Vane Geiger) Sister Alzheimer's disease Family History: Reports: Diabetes, Hypertension Review of Systems General: Denies: Chills, Fever, Sweats Eyes: Denies: Visual changes - bilaterally, Diplopia ENT: Denies: Rhinorrhea, Sore throat Cardiovascular: Denies: Chest pain, Palpitations Respiratory: Denies: Dyspnea, Cough, Dyspnea on exertion Gastrointestinal: Reports: Abdominal pain - Bloating, Nausea. Denies: Vomiting, Diarrhea, Melena, Hematochezia Genitourinary: Denies: Dysuria, Hematuria, Frequency Musculoskeletal: Denies: Neck pain, Swelling, Extremity Pain Skin: Denies: Rash, Wounds Neurological: Denies: Headache, Weakness, Numbness Physical Exam Vital Signs/Narrative: Vital Signs Temp Pulse Resp BP Pulse Ox 08/29/19 07:15 97.4 F L 88 16 126/84 H 98 Inital Vital Signs reviewed: Yes General: Well nourished, Well developed, No Acute Distress - Well-appearing, conversive in full sentences Head: Normocephalic, Atraumatic Eyes: Perrl, EOMI ENT: Moist mucous membranes, No rhinorrhea Neck: Supple, Nontender, No JVD Cardiovascular: No murmurs, Irregular. Negative for: Tachycardia Respiratory: No distress, CTA bilaterally, Chest nontender Abdomen: Soft, Nondistended, Normal bowel sounds, Tender - Epigastrium only, and mild. Negative for: Guarding, Rebound tenderness, Pulsatile mass Back: Nontender, Normal Inspection. Negative for: CVA tenderness Extremities: Nontender, No edema. Negative for: Calf Tenderness Skin: Normal color, No rash Neurological: Alert, Oriented x3, Cranial nerves II-XII grossly intact, Normal Strength, Normal Sensation Psychological: Normal affect, Normal Mood Diagnostic/Tx/Re-eval Laboratory Tests 08/29/19 08/29/19 Range/Units 07:25 07:25 WBC 8.0 (4.4-11.0) K/mm3 RBC 3.65 L (4.2-5.4) M/mm3 Hgb 11.0 L (12.0-15.0) g/dL Hct 34.5 L (37-47) % MCV 94.5 (81-99) fL MCH 30.1 (27.0-32.0) pg MCHC 31.9 L (32-36) g/dL RDW Std Deviation 47.2 H (35.1-43.9) fl RDW Coeff of Bertrand 13.9 (11.6-14.6) % Plt Count 286 (150-450) K/mm3 MPV 9.2 (6.2-12.0) fl Immature Gran % (Auto) 0.700 (0.0-0.9) % Neut % (Auto) 75.0 H (47-70) % Lymph % (Auto) 11.8 L (19-41) % [place] % (Auto) 10.2 H (0-10) % Eos % (Auto) 2.1 (0-5) % Baso % (Auto) 0.2 (0-1) % Absolute Neuts (auto) 6.0 (2.0-7.7) X10^3/uL Absolute Lymphs (auto) 0.95 (0.83-4.51) X10^3/uL Nucleated RBC % 0 (0-5) % Sodium 137 (136-145) mmol/L Potassium 4.5 (3.5-5.1) mmol/L Chloride 103 (98-107) mmol/L Carbon Dioxide 26.0 (21.0-32.0) mmol/L Anion Gap 8 (5-15) BUN 23 H (7-18) mg/dL Creatinine 1.16 H (0.55-1.02) mg/dL Estim Creat Clear Calc 30.93 ml/min Est GFR (MDRD) Af Amer 57 L (>60) mL/min Est GFR (MDRD) Non-Af 48 L (>60) mL/min BUN/Creatinine Ratio 19.8 (10-20) RATIO Glucose 158 H (74-106) mg/dL Calcium 8.9 (8.5-10.1) mg/dL Total Bilirubin 0.70 (0.20-1.00) mg/dL AST 64 H (15-37) U/L ALT 66 H (13-56) U/L Alkaline Phosphatase 103 (45-117) U/L Troponin I 2.070 H* (<0.045) ng/mL Total Protein 6.4 (6.4-8.2) g/dL Albumin 3.3 (3.2-5.0) g/dL Globulin 3.1 (2.2-4.2) g/dL Albumin/Globulin Ratio 1.1 (0.9-2.4) RATIO - Rhythm Strip Rhythm Strip: A-fib Rate: 75 Ectopy: None - EKG Initial EKG Interpretation: No Acute Injury Pattern, Atrial Fibrillation, Non-Specific ST Changes Prior: Changed - 04/2019 EKG showed NSR, same morphology - Medical Decision Making I reviewed her recent cardiology note from Rashad Enriquez, he saw her 5 days ago. Apparently the plan is to bring her back in 2 to 3 weeks after starting the anticoagulant for a cardioversion, as it seems she may be symptomatic from her atrial fibrillation. I think it is unclear if these symptoms are related to her atrial fibrillation or not. Labs show a concerning troponin and just over 2. Her cardiology nurse practitioner obtained labs 5 days ago but her troponin was not included. My concern is that her nausea and bloating at this point may be atypical symptoms of unstable angina, and not necessarily related to her A. fib or an abdominal process. She was given Zofran and IV fluids. Her EKG shows nothing acute. Aspirin was held because she is anticoagulated. I discussed with Dr. Terry, he agrees with admission and they will consult, but no indication for emergency heart catheterization at this time. Nitroglycerin and morphine ordered, as the patient is requesting something for her discomfort. ED Disposition - Plan for ED Patient: Disposition: [facility] Diagnosis: NSTEMI (non-ST elevated myocardial infarction) Referrals: Isaías Royal III, MD [Primary Care Provider] -
[2019-08-29 07:38] LABS: Absolute Lymphocyte Count 0.95 X10^3/uL (0.83-4.51); Basophil# 0.02 X10^3/uL; Basophil% 0.2 % (0-1); Eosinophil# 0.17 X10^3/uL; Eosinophils% 2.1 % (0-5); Hematocrit 34.5 % (37-47); Lymphocyte # 0.95 X10^3/ul (4.0); Lymphocyte % 11.8 % (19-41); Mean Corp Hgb Conc 31.9 g/dL (32-36); Mean Corpuscular Hgb 30.1 pg (27.0-32.0); Mean Corpuscular Volume 94.5 fL (81-99); Mean Platelet Vol. 9.2 fl (6.2-12.0); Monocyte# 0.82 X10^3/uL; Monocyte% 10.2 % (0-10); NRBC Flagged by Analyzer 0 % (0-5); Neutrophil # 6.01 X10^3/uL (2.7-7.7); Platelet Count 286 K/mm3 (150-450); RBC Distribution Width CV 13.9 % (11.6-14.6); RBC Distribution Width SD 47.2 fl (35.1-43.9); Red Blood Count 3.65 M/mm3 (4.2-5.4)
[2019-08-29] MEDS: Ondansetron 4 MG/2 ML Vial IV (07:47)
[2019-08-29 08:00] LABS: ALB/GLOB Ratio 1.1 RATIO (0.9-2.4); AST(SGOT) 64 U/L (15-37); Alanine Aminotransfer ALT/SGPT 66 U/L (13-56); Albumin, Serum 3.3 g/dL (3.2-5.0); Alkaline Phosphatase 103 U/L (45-117); Anion Gap 8 (5-15); BUN 23 mg/dL (7-18); BUN/Creat Ratio 19.8 RATIO (10-20); Calcium,Total 8.9 mg/dL (8.5-10.1); Chloride 103 mmol/L (98-107); Creatinine, Serum 1.16 mg/dL (0.55-1.02); EST Glomerular Filtration Rate 48 mL/min (>60); Est Glom Filt Rate - Afr Amer 57 mL/min (>60); Estimated Creatinine Clearance 30.93 ml/min; Globulin 3.1 g/dL (2.2-4.2); Glucose 158 mg/dL (74-106); Potassium 4.5 mmol/L (3.5-5.1); Protein, Total 6.4 g/dL (6.4-8.2); Sodium Level 137 mmol/L (136-145)
[2019-08-29] MEDS: Nitroglycerin SL (ED/IMG/CATH) 0.4 MG TABLET SUBLINGUAL (09:02)
--- NOTE | 2019-08-29 09:10 | NURSING ---
Addendum entered by Brittanie Dubois 08/29/19 09:24: NSTEMI, NOT STEMI Original Note: PCU STEMI [id number]
[2019-08-29] MEDS: Morphine 2 MG/ML Syringe IV (09:16)
--- NOTE | 2019-08-29 09:43 | ECHOD_ITS ---
Reason For Study: NSTEMI Procedure This was a 2D Doppler, Color Flow transthoracic echocardiogram. Exam performed portable in patient room. Left Ventricle Normal size and thickness. The estimated ejection fraction is 45-50 %. Unable to assess diastolic dysfunction due to arrhythmia. Infero-Basal: Mildly hypokinetic. Mid-Lateral : Mildly hypokinetic. Right Ventricle Normal size and thickness. Normal systolic function. Atria The left atrium is severely enlarged. The right atrium is moderately enlarged. Normal atrial septum. Mitral Valve Mild focal mitral valve thickening. Mild (1+) posteriorly directed mitral valve insufficiency. Tricuspid Valve Normal tricuspid valve. Trivial tricuspid valve insufficiency. Right ventricular systolic pressure estimated to be 41 mmHg. Mild pulmonary hypertension. Aortic Valve Normal aortic valve. Trisinus/trileaflet aortic valve. Pulmonic Valve Normal pulmonic valve. Mild (1+) pulmonic valve insufficiency. Great Vessels Normal aortic root. Normal arch. The inferior vena cava is dilated. Inferior vena cava collapse with sniff. Pericardium/Pleural No pericardial effusion. MMode/2D Measurements & Calculations LVIDd: 4.3 cm IVSd: 1.1 cm Ao root diam: 3.0 cm LVIDs: 3.4 cm LVPWd: 1.1 cm RVDd: 2.5 cm FS: 20.5 % LAV(MOD-bp): 106.6 ml LA A4 area: 29.6 cm2 RA A4 area: 21.9 cm2 LAV(MOD-bp) Indexed: 62.0 ml/m2 LAV(MOD-sp2): 113.5 ml LAV(MOD-sp4): 99.4 ml Doppler Measurements & Calculations MV E max april: 109.0 cm/sec Ao V2 max: 103.8 cm/sec LV V1 max: 75.2 cm/sec Ao max P.3 mmHg LV V1 max P.3 mmHg PA V2 max: 69.7 cm/sec TR max april: 254.3 cm/sec TR max P.1 mmHg Interpretation Summary The estimated ejection fraction is 45-50 %. Unable to assess diastolic dysfunction due to arrhythmia. Infero-Basal: Mildly hypokinetic Mid-Lateral : Mildly hypokinetic The left atrium is severely enlarged. The right atrium is moderately enlarged. Mild (1+) posteriorly directed mitral valve insufficiency. Trivial tricuspid valve insufficiency. Right ventricular systolic pressure estimated to be 41 mmHg. Mild pulmonary hypertension. Compared to echo report dated 05/10/2019, LV function has decreased from 65% to 55%, RVSP has remained about the same. Pt appears to be in atrial fibrillation. Ordering Physician: Adan Delgado Referring Physician: SAMIR Royal M.D. Performed By: Gwen Casas RDCS
--- NOTE | 2019-08-29 10:48 | EKG12_ITS ---
Test Reason : ADMISSION Blood Pressure : / mmHG Vent. Rate : 090 BPM Atrial Rate : 098 BPM P-R Int : 000 ms QRS Dur : 084 ms QT Int : 388 ms P-R-T Axes : 000 045 068 degrees QTc Int : 474 ms Suspect unspecified pacemaker failure Atrial fibrillation Nonspecific ST and T wave abnormality Abnormal ECG When compared with ECG of 06-MAY-2019 17:54, Atrial fibrillation has replaced Sinus rhythm Nonspecific T wave abnormality now evident in Lateral leads Confirmed by MARTIN BRAVO, RICKY ([id number]), sound editor SUREKHA NOLAN ([id number]) on 09/05/2019 9:51:07 AM Referred By: Confirmed By:RICKY SALAZAR MD
[2019-08-29] MEDS: Carvedilol 25 MG Tablet PO ×2 (11:00→21:32)
[2019-08-29] MEDS: Verapamil SR 240 MG Tablet PO ×2 (11:00→21:32)
[2019-08-29] MEDS: Lisinopril 40 MG Tablet PO (11:00)
--- NOTE | 2019-08-29 11:03 | CPS ---
PT DECREASED TO 3 LPM...99%. NURSE AWARE OF CHANGE
--- NOTE | 2019-08-29 11:11 | PCM.CONS.C ---
Problem List (1) NSTEMI (non-ST elevated myocardial infarction) Status: Acute (2) History of atrial fibrillation Status: Chronic (3) Hyperlipidemia Status: Chronic Qualifiers: Hyperlipidemia type: mixed hyperlipidemia Qualified Code(s): E78.2 - Mixed hyperlipidemia Reason for Consult Date of Consultation: 08/29/19 Reason for Consultation: Atrial fibrillation, abnormal troponin, Non-STEMI, hypertension History of Present Illness: The patient is a 84 year old F, Patient of mine, with longstanding history of hypertension, atrial fibrillation, Who reports never having had a heart catheterization, denies any previous CVA, was not on anticoagulation up until late last week when she was started on Xarelto this past Wednesday. Soon after that she developed GI upset on a daily basis, as well as diarrhea. This gave way to the patient developing mid epigastric pain but no nausea or vomiting.This woke her up around 3 4 in the morning this morning, and she sought medical attention at [facility]. At that time an EKG was performed which showed atrial fibrillation with controlled ventricular response, nonspecific anterolateral ST segment changes. Her initial troponin was 2.0.Her Xarelto was held. Currently she is doing fine, denies any chest pain, abdominal pain. She did however receive some morphine. She has some mild midepigastric tenderness on physical examShe is hemodynamically stable[] Past Medical History Allergies/Adverse Reactions: Allergies codeine Adverse Reaction (Verified 08/29/19 07:14) Upset Stomach Home Medications: Ambulatory Orders Medication Instructions Recorded Cholecalciferol (VIT D3) [Vitamin 1,000 unit PO DAILY 01/31/15 D3] Famotidine 40 mg PO DAILY 01/31/15 Multivitamins,Therapeutic 1 tab PO DAILY 01/31/15 [Multivitamin] Verapamil [Calan Sr] 240 mg PO BID 01/31/15 Acetaminophen [Tylenol] 500 - 1,000 mg PO Q6H PRN PRN 10/25/15 Calcium Carbonate/Vitamin D3 1 ea PO BID 01/01/16 [Calcium 500 mg Chewable Tablet] Meloxicam 7.5 mg PO DAILY 04/26/17 estradiol 1 g VAGINAL QWEEK g 05/10/17 Lisinopril 40 mg PO DAILY #30 tab 04/18/18 traMADol [Ultram (G)] 50 mg PO Q6H PRN PRN 05/06/19 rivaroxaban 15 mg tablet 15 mg PO DAILY #30 tab 08/24/19 Carvedilol 25 mg PO BID 08/29/19 Past Medical History (Chronic Problems): Chronic Problems (Last Reviewed 04/28/19 @ 10:37 by Vane Geiger) 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) DDD (degenerative disc disease), cervical (Chronic) Spinal stenosis of lumbosacral region (Chronic) History of atrial fibrillation (Chronic) Hyperlipidemia (Chronic) Paroxysmal atrial fibrillation (Chronic) Osteoarthritis (Chronic) Lumbar facet arthropathy (Chronic) Lumbosacral spondylosis (Chronic) Degeneration of lumbosacral intervertebral disc (Chronic) HTN (hypertension) (Chronic) Lumbosacral radiculitis (Chronic) Surgical History: cholecystectomy, hysterectomy Psychiatric History: No pertinent psych hx SCHEDULE MANAGER History: No pertinent SCHEDULE MANAGER history - *Family History Maternal Family History: Family History (Last Reviewed 04/28/19 @ 10:37 by Vane Geiger) Sister Alzheimer's disease History Items: Diabetes, Hypertension Smoking Status: Never smoker Review of Systems - Review of Systems General: Denies: Fever, Night Sweats, Fatigue Cardiovascular: Denies: Chest Discomfort, Shortness of Breath, Orthopnea, PND, Peripheral Edema, Palpitations, Lightheadedness, Dizziness, Near Syncope, Syncope Respiratory: Denies: Cough, Sputum Production, Hemoptysis Gastrointestinal: Reports: Epigastric Discomfort, Abdominal Discomfort, Diarrhea. Denies: Hematemesis, Hematochezia, Melena Genitourinary: Denies: Dysuria, Hematuria Skin: Denies: Rash Subjectve: Patient resting comfortably, no acute distress. Objective: Vital Signs Temp Pulse Resp BP Pulse Ox 98.4 F 100 18 118/86 H 100 08/29/19 09:52 08/29/19 10:12 08/29/19 09:52 08/29/19 09:52 08/29/19 10:15 Oxygen Flow Rate (L/min) 5 Oxygen Delivery Method Nasal Cannula Weight: 152 lb 1.903 oz Body Mass Index (BMI) 26.9 Intake and Output for Last 24 Hours 08/27/19 08/28/19 08/29/19 23:59 23:59 23:59 Intake Total 500 / 500 Balance 500 / 500 General: Awake, Alert, Oriented x 3 HEENT: PERRL, EOMI, Sclera Non Icteric Neck: Supple, Good ROM, No Lymph Node Enlargement Lungs: Clear to auscultation Cardiovascular: Irregular Rhythm, Normal S1, Normal S2, No Murmurs, No Rubs, No Gallops Vascular: No Carotid Bruits, Normal Femoral Pulses, Normal Radial Pulses, Normal Dorsalis Pedal Pulse, Normal Posterior Tibial Pulses Abdomen: Bowel Sounds Present, Soft, No HSM, No Organomegaly, LUQ Tenderness Extremities: No Cyanosis, No Clubbing, No edema Neurological: No Focal Motor or Sensory Deficit 08/29/19 07:25: WBC 8.0, RBC 3.65 L, Hgb 11.0 L, Hct 34.5 L, MCV 94.5, MCH 30.1, MCHC 31.9 L, Plt Count 286, MPV 9.2, Immature Gran % (Auto) 0.700, Neut % (Auto) 75.0 H, Lymph % (Auto) 11.8 L, [place] % (Auto) 10.2 H, Eos % (Auto) 2.1, Baso % (Auto) 0.2, Absolute Neuts (auto) 6.0, Nucleated RBC % 0 08/29/19 07:25: Sodium 137, Potassium 4.5, Chloride 103, Carbon Dioxide 26.0, Anion Gap 8, BUN 23 H, Creatinine 1.16 H, Est GFR (MDRD) Af Amer 57 L, Est GFR (MDRD) Non-Af 48 L, BUN/Creatinine Ratio 19.8, Glucose 158 H, Calcium 8.9, Total Bilirubin 0.70, Troponin I 2.070 H* Rhythm: EKG: ECHO: Stress Test: Cardiac Cath: PCI: CT Surgery: Holter monitor: EPS: PPM: CXR: Chest CT Scan: Assessment/Plan 1. Atrial fibrillation:Patient presents with longstanding atrial fibrillation but previously was on no anticoagulation therapy.Patient was started on Xarelto last week by Rashad Delacruz in the office, and soon after that the patient developed GI upset with additional diarrhea.She now presents with atrial fibrillation with controlled ventricular response, midepigastric tenderness, and a troponin of 2.0. Her hemoglobin is stable at 11. I recommended discontinuation of her Xarelto at this time.Patient underwent a non-walking Stress echocardiogram in April 2019 which was negative for inducible ischemia.In light of her recent troponin abnormality, and midepigastric pain I recommend that she undergo a left heart catheterization in 3 days timeTo confirm/deny the presence of significant coronary Occlusive disease. In the meantime I recommend continue her on her H2 mira or upgrading her to PPI therapy for possible gastritis. In addition I recommend a repeat echocardiogram to determine if she has any evidence of pericardial effusion. Patient has had a history of pericarditis around age 32, but this presentation is completely dissimilar to that presentation.She has no recumbent induced chest pain symptoms. 2. Hyperlipidemia:Her LFTs are slightly elevated. She no longer has her gallbladder. Would hold off on antilipid therapy at this time. 3. Discussed with Dr. Almendarez. Thank very much for the opportunity to participate in cardiac care of your patient. Consultation time took place between 10 AM and 10:30 AM.
--- NOTE | 2019-08-29 11:55 | CASEMGMT ---
NOEMI HARTLEY assessment: Face to Face with patient for initial transition planning/care coordination assessment. NOEMI HARTLEY introduced self and role at [facility], pt voices understanding and consents to assessment at this time. Pt is sitting up in bed in no distress at this time. Pt is A/Ox4 at this time and answers all questions appropriately at this time. Care providers, pharmacy, and demographics verified at this time. Presentation: c/o bloating/nausea since started Xarelto last Admitting dx: NSTEMI PCP: Genny DAWSON Specialists: ANTONIA Pérez; dante Deshpande Preferred [facility]acy: [facility] Insurance: [facility] Prescription Benefit: [facility] Living Will/HPOA: Pt states does have LW/HPOA and is aware that LW is not on file at [facility] at this time. Pt states that her is and her sons, Balta and Thiago Bergman, are HPOA. LNOK: Balta Bergman, son; Thiago Bergman, son Living Arrangements: Pt states lives alone in 1 story home and states no concerns at home at this time. Pt states laundry in basement and states no concerns. Pt states that her granddaughter will be living with her soon. Pt states is independent with ADL's. Transportation: Pt states drives self and states no transportation concerns at this time. DME/HHC: Pt states has a cane and shower chair and states no need for any further DME at this time. Pt states no hx of HHC or SNF in the past. Pt states no concerns with going home at time of discharge. Pt states is retired. Pt states does not smoke cigarettes or drink ETOH. Pt states no further concerns/needs at this time. CM to follow for any further discharge planning/needs. Advised pt to ask for CM if any further questions/concerns/needs arise, voices understanding. Pt Goal: Home Plan[place] NOEMI HARTLEY
--- NOTE | 2019-08-29 13:03 | PCM.HP.STD ---
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 (2) DDD (degenerative disc disease), cervical Status: Chronic (3) Spinal stenosis of lumbosacral region Status: Chronic (4) NSTEMI (non-ST elevated myocardial infarction) Status: Acute (5) Hyperlipidemia Status: Chronic Qualifiers: Hyperlipidemia type: mixed hyperlipidemia Qualified Code(s): E78.2 - Mixed hyperlipidemia (6) Paroxysmal atrial fibrillation Status: Chronic (7) Acute urinary retention Status: Acute (8) Gastroenteritis Status: Acute (9) Osteoarthritis Status: Chronic (10) Lumbar facet arthropathy Status: Chronic (11) Lumbosacral spondylosis Status: Chronic (12) Degeneration of lumbosacral intervertebral disc Status: Chronic (13) HTN (hypertension) Status: Chronic Qualifiers: Hypertension type: essential hypertension Qualified Code(s): I10 - Essential (primary) hypertension (14) Lumbosacral radiculitis Status: Chronic History of Present Illness Date of Admission: 08/29/19 Chief Complaint: Abdominal bloating, upper back pain. The patient is a 84 year old F who presents the emergency room due to abdominal bloating, cramping and recent upper back pain. Patient reports she could tell she was in atrial fibrillation and saw cardiology where she was prescribed Xarelto 08/24/2019. She reports following taking the medication she developed abdominal bloating and cramping. She reports over the past week she has had some upper back pain which goes down both arms however she states she has chronic back pain so did not think it was cardiac related. Her main complaint is mid epigastric pressure, tenderness and bloating. She denies nausea, vomiting. Denies diarrhea. Reports her bowel movements have been normal. She has a past medical history of paroxysmal atrial fibrillation, hypertension, hyperlipidemia, degenerative disc disease/lumbosacral spinal stenosis/chronic back pain. 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) DDD (degenerative disc disease), cervical (Chronic) Spinal stenosis of lumbosacral region (Chronic) Hyperlipidemia (Chronic) Paroxysmal atrial fibrillation (Chronic) Osteoarthritis (Chronic) Lumbar facet arthropathy (Chronic) Lumbosacral spondylosis (Chronic) Degeneration of lumbosacral intervertebral disc (Chronic) HTN (hypertension) (Chronic) Lumbosacral radiculitis (Chronic) Medical History: Medical History (Last Reviewed 04/28/19 @ 10:37 by Vane Geiger) History of atrial fibrillation (Chronic) Z86.79 Hyperlipidemia (Chronic) E78.5 Paroxysmal atrial fibrillation (Chronic) I48.0 Lumbar facet arthropathy (Chronic) M12.88 Lumbosacral spondylosis (Chronic) M47.817 Degeneration of lumbosacral intervertebral disc (Chronic) M51.37 HTN (hypertension) (Chronic) I10 Lumbosacral radiculitis (Chronic) M54.17 Allergies codeine Adverse Reaction (Verified 08/29/19 07:14) Upset Stomach Home Medications: Ambulatory Orders Medication Instructions Recorded Cholecalciferol (VIT D3) [Vitamin 1,000 unit PO DAILY 01/31/15 D3] Famotidine 40 mg PO DAILY 01/31/15 Multivitamins,Therapeutic 1 tab PO DAILY 01/31/15 [Multivitamin] Verapamil [Calan Sr] 240 mg PO BID 01/31/15 Acetaminophen [Tylenol] 500 - 1,000 mg PO Q6H PRN PRN 10/25/15 Calcium Carbonate/Vitamin D3 1 ea PO BID 01/01/16 [Calcium 500 mg Chewable Tablet] Meloxicam 7.5 mg PO DAILY 04/26/17 estradiol 1 g VAGINAL QWEEK g 05/10/17 Lisinopril 40 mg PO DAILY #30 tab 04/18/18 traMADol [Ultram (G)] 50 mg PO Q6H PRN PRN 05/06/19 rivaroxaban 15 mg tablet 15 mg PO DAILY #30 tab 08/24/19 Carvedilol 25 mg PO BID 08/29/19 Surgical History: Surgical History (Last Reviewed 08/29/19 @ 13:08 by TRUMAN Jones) History of cholecystectomy Z98.890, Z90.49 History of hysterectomy Z98.890, Z90.710 Surgical History: cholecystectomy, hysterectomy, - - Carpal tunnel surgery Psychiatric History: No pertinent psych hx 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 ANALYST history Lives: Alone - Granddaughter to live with her soon Smoking Status: Never smoker Alcohol: None Drugs: None - *Family History Maternal Family History: Family History (Last Reviewed 08/29/19 @ 13:08 by TRUMAN Jones) Sister Alzheimer's disease History Items: Diabetes, Hypertension Paternal Family History: Family History (Last Reviewed 08/29/19 @ 13:08 by TRUMAN Jones) Sister Alzheimer's disease History Items: - - Denies known paternal medical history including cardiac history Review of Systems Constitutional: Denies: Chills, Fever, Weight Change HEENT: Denies: Head Aches, Sinus Congestion, Sinus Drainage Cardiovascular: Reports: Edema. Denies: Chest Pain, Palpitations Respiratory: Reports: Shortness of Breath. Denies: Cough, Sputum production Gastrointestinal: Denies: Abdominal Pain, Nausea, Vomiting Genitourinary: Denies: Dysuria Musculoskeletal: Denies: Joint Pain, Joint Tenderness Skin: Denies: Rash, Wounds Neurological: Reports: - - Lower extremity venous stasis changes with generalized scabbing and right lower extremity ulcerations. Denies: Focal weakness, Numbness, Tingling Psychiatric: Denies: Anxiety, Depression, Homicidal Ideations, Suicidal Ideations Hematologic/ Lymphatic: Denies: Easy Bruising, Easy Bleeding VTE Information - Inpt Only VTE Present on Admission: No VTE Mechan Device Prophylaxis: None VTE Pharm Prophylaxis ordered?: Yes Patient Problems: Active and Suspected Problems (Last Reviewed 04/28/19 @ 10:37 by Vane Geiger) NSTEMI (non-ST elevated myocardial infarction) (Acute) - Physical Exam Vitals/I&O's: Vital Signs Temp Pulse Resp BP Pulse Ox 98.4 F 100 18 118/86 H 100 08/29/19 09:52 08/29/19 10:12 08/29/19 09:52 08/29/19 09:52 08/29/19 10:15 Oxygen Flow Rate (L/min) 5 Oxygen Delivery Method Nasal Cannula Weight: 152 lb 1.903 oz Body Mass Index (BMI) 26.9 Intake and Output for Last 24 Hours 08/27/19 08/28/19 08/29/19 23:59 23:59 23:59 Intake Total 720 / 720 Balance 720 / 720 General: Alert, Oriented x3, Cooperative HEENT: Atraumatic, PERRLA, EOMI, Normocephalic Neck: Supple, No JVD, Negative Carotid Bruits Lungs: Clear to auscultation, Normal air movement Cardiovascular: - - Atrial fibrillation, rate controlled Abdomen: Bowel Sounds Present, Soft, Non Tender Extremities: No clubbing, No cyanosis, No edema, Capillary Refill Less than 3 Seconds Skin: No rashes, No breakdown Musculoskeletal: No Tenderness to Palpation of Joints or Extremities Neurological: Cranial nerves II-XII grossly intact, Neuro grossly intact Psych/Mental Status: Normal Affect, Appropriate Laboratory Results 08/29/19 07:25: WBC 8.0, RBC 3.65 L, Hgb 11.0 L, Hct 34.5 L, MCV 94.5, MCH 30.1, MCHC 31.9 L, RDW Std Deviation 47.2 H, RDW Coeff of Bertrand 13.9, Plt Count 286, MPV 9.2, Immature Gran % (Auto) 0.700, Neut % (Auto) 75.0 H, Lymph % (Auto) 11.8 L, [place] % (Auto) 10.2 H, Eos % (Auto) 2.1, Baso % (Auto) 0.2, Absolute Neuts (auto) 6.0, Absolute Lymphs (auto) 0.95, Nucleated RBC % 0 08/29/19 07:25: Sodium 137, Potassium 4.5, Chloride 103, Carbon Dioxide 26.0, Anion Gap 8, BUN 23 H, Creatinine 1.16 H, Estim Creat Clear Calc 30.93, Est GFR (MDRD) Af Amer 57 L, Est GFR (MDRD) Non-Af 48 L, BUN/Creatinine Ratio 19.8, Glucose 158 H, Calcium 8.9, Total Bilirubin 0.70, AST 64 H, ALT 66 H, Alkaline Phosphatase 103, Troponin I 2.070 H*, Total Protein 6.4, Albumin 3.3, Globulin 3.1, Albumin/Globulin Ratio 1.1 08/29/19 10:50: Troponin I 1.530 H* Current Medications Acetaminophen (Tylenol) 500 - 1,000 mg PO Q6H PRN PRN PRN Reason: Pain Score 4-5/10 Carvedilol (Coreg) 25 mg PO BID [facility] Last Admin: 08/29/19 11:00 Dose: 25 mg Documented by: Enoxaparin Sodium (Lovenox) 40 mg SC DAILY [facility] Last Admin: 08/29/19 10:13 Dose: Not Given Documented by: Famotidine (Pepcid) 20 mg PO DAILY [facility] Sodium Chloride () 250 mls @ 15 mls/hr IV .[id number] PRN PRN Reason: Saline Flush Sodium Chloride () 250 mls @ 15 mls/hr IV .[id number] PRN PRN Reason: Additional IVPB Infusion Lisinopril (Zestril) 40 mg PO DAILY [facility] Last Admin: 08/29/19 11:00 Dose: 40 mg Documented by: Morphine Sulfate () 4 mg IV Q3H PRN PRN PRN Reason: Pain Score 6-10/10 Ondansetron HCl (Zofran) 4 mg IV Q8H PRN PRN PRN Reason: NAUSEA/VOMITING Sodium Chloride () 10 - 40 ml IV UD PRN PRN Reason: Midline Flush Sodium Chloride (0.9% Nacl (Sterile) Posiflush) 10 - 40 ml IV UD PRN PRN Reason: Port access or dressing change Sodium Chloride () 10 - 40 ml IV UD PRN PRN Reason: SALINE FLUSH Tramadol HCl (Ultram) 50 mg PO Q6H PRN PRN PRN Reason: Pain 1-10 or Fever Verapamil HCl (Calan Sr) 240 mg PO BID [facility] Last Admin: 08/29/19 11:00 Dose: 240 mg Documented by: Assessment/Plan All Active Problems (Last Reviewed 04/28/19 @ 10:37 by Vane Geiger) NSTEMI (non-ST elevated myocardial infarction) (Acute) Acute urinary retention (Acute) Gastroenteritis (Acute) 1. NSTEMI-cardiology following. Echocardiogram demonstrates an EF of 45 to 50%. Mild mitral valve insufficiency, RVSP estimated to be 41 mmHg. Plan for heart cath on . 2. Mild dehydration-gentle IV fluids, trend BMP. 3. Abdominal bloating, cramping-unclear etiology. Placed on famotidine. PRN regimen for antiemetics, bloating. 4. Chronic normocytic anemia-stable. 5. Paroxysmal atrial fibrillation-Xarelto on hold. Rate controlled. Continue carvedilol, verapamil. 6. Hypertension-stable, continue carvedilol, verapamil, lisinopril. 7. Hyperlipidemia-not on statin. Fasting lipid panel in a.m. 8. Degenerative disc disease/lumbosacral spinal stenosis/chronic back pain-PT/OT. PRN pain regimen. DVT prophylaxis- Lovenox sc This patient was seen by TRUMAN Jones under the supervision of Dr. Delgado.
[2019-08-29] MEDS: Acetaminophen 500 MG Tablet PO (13:38)
[2019-08-29] MEDS: Aspirin E.C. 81 MG Tablet PO (14:58)
[2019-08-29] MEDS: Morphine 4 MG/ML Syringe IV (15:39)
[2019-08-29] MEDS: 0.9% Saline Lock 10 ML Syringe IV (15:39)
[2019-08-29] MEDS: Magnesium Hydroxide 30 ML UDC PO (16:18)
[2019-08-30] VITALS (10 sets, daily range): BP systolic 46–202; BP diastolic 12–124; PULSE 0–80; RESP 0–46; TEMP 36.5–36.9; O2SAT 77–96
[2019-08-30 05:42] LABS: Anion Gap 7 (5-15); BUN 30 mg/dL (7-18); BUN/Creat Ratio 26.5 RATIO (10-20); Calcium,Total 8.2 mg/dL (8.5-10.1); Chloride 105 mmol/L (98-107); Cholesterol 168 mg/dL (200); Creatinine, Serum 1.13 mg/dL (0.55-1.02); EST Glomerular Filtration Rate 49 mL/min (>60); Est Glom Filt Rate - Afr Amer 59 mL/min (>60); Estimated Creatinine Clearance 31.75 ml/min; Glucose 98 mg/dL (74-106); High Density Lipoprotein 37 mg/dL; Potassium 4.7 mmol/L (3.5-5.1); Sodium Level 138 mmol/L (136-145); Triglycerides 113 mg/dL; Very Low Density Lipoprotein 23 mg/dL (5-40)
[2019-08-30] MEDS: Magnesium Hydroxide 30 ML UDC PO ×2 (07:24→14:23)
[2019-08-30] MEDS: Aspirin E.C. 81 MG Tablet PO (07:24)
[2019-08-30] MEDS: Famotidine 20 MG Tablet PO (08:58)
[2019-08-30] MEDS: Verapamil SR 240 MG Tablet PO (08:58)
[2019-08-30] MEDS: Carvedilol 25 MG Tablet PO (08:58)
[2019-08-30] MEDS: Enoxaparin 40 MG/0.4 ML Syringe SC (08:58)
[2019-08-30] MEDS: Lisinopril 40 MG Tablet PO (08:58)
--- NOTE | 2019-08-30 10:50 | PN_ITS ---
<Monalisa Ray - Last Filed: 08/30/19 11:11> Patient Problems: Active and Suspected Problems (Last Reviewed 04/28/19 @ 10:37 by Vane Geiger) NSTEMI (non-ST elevated myocardial infarction) (Acute) Subjective: Patient seen and examined. Reports abdominal bloating is improved. Continues to have constipation. Denies chest pain or other current symptoms. - Physical Exam Vitals/I&O's: Vital Signs Temp Pulse Resp BP Pulse Ox 98.5 F 60 14 116/63 95 08/30/19 08:57 08/30/19 08:57 08/30/19 08:57 08/30/19 08:57 08/30/19 08:57 Oxygen Flow Rate (L/min) 5 Oxygen Delivery Method Room Air Weight: 152 lb 1.903 oz Body Mass Index (BMI) 26.9 Intake and Output for Last 24 Hours 08/28/19 08/29/19 08/30/19 23:59 23:59 23:59 Intake Total 1240 / 1240 Balance 1240 / 1240 General: Alert, Oriented x3, Cooperative HEENT: Atraumatic, PERRLA, EOMI, Normocephalic Neck: Supple, No JVD, Negative Carotid Bruits Lungs: Clear to auscultation, Normal air movement Cardiovascular: Regular rate, No murmurs Abdomen: Bowel Sounds Present, Soft, Non Tender Extremities: No clubbing, No cyanosis, No edema, Capillary Refill Less than 3 Seconds Skin: No rashes, No breakdown Musculoskeletal: No Tenderness to Palpation of Joints or Extremities Neurological: Cranial nerves II-XII grossly intact, Neuro grossly intact Psych/Mental Status: Normal Affect, Appropriate Laboratory Results 08/29/19 10:50: Troponin I 1.530 H* 08/29/19 13:42: Troponin I 1.340 H* 08/30/19 05:10: Sodium 138, Potassium 4.7, Chloride 105, Carbon Dioxide 26.0, Anion Gap 7, BUN 30 H, Creatinine 1.13 H, Estim Creat Clear Calc 31.75, Est GFR (MDRD) Af Amer 59 L, Est GFR (MDRD) Non-Af 49 L, BUN/Creatinine Ratio 26.5 H, Glucose 98, Calcium 8.2 L, Triglycerides 113, Cholesterol 168, LDL Cholesterol 108, VLDL Cholesterol 23, HDL Cholesterol 37 L Current Medications Acetaminophen (Tylenol) 500 - 1,000 mg PO Q6H PRN PRN PRN Reason: Pain Score 4-5/10 Last Admin: 08/29/19 13:38 Dose: 1,000 mg Documented by: Aspirin (Ecotrin) 81 mg PO DAILY@0800 [facility] Last Admin: 08/30/19 07:24 Dose: 81 mg Documented by: Carvedilol (Coreg) 25 mg PO BID [facility] Last Admin: 08/30/19 08:58 Dose: 25 mg Documented by: Clopidogrel Bisulfate (Plavix) 300 mg PO X1 ONE Stop: 08/30/19 10:49 Clopidogrel Bisulfate (Plavix) 75 mg PO DAILY [facility] Diphenhydramine HCl (Benadryl) 50 mg PO X1 ONE Stop: 08/30/19 10:48 Enoxaparin Sodium (Lovenox) 40 mg SC DAILY [facility] Last Admin: 08/30/19 08:58 Dose: 40 mg Documented by: Famotidine (Pepcid) 20 mg PO DAILY [facility] Last Admin: 08/30/19 08:58 Dose: 20 mg Documented by: Sodium Chloride () 250 mls @ 15 mls/hr IV .[id number] PRN PRN Reason: Saline Flush Sodium Chloride () 250 mls @ 15 mls/hr IV .[id number] PRN PRN Reason: Additional IVPB Infusion Sodium Chloride () 1,000 mls @ 0 mls/hr IV .Q0M [facility] Lisinopril (Zestril) 40 mg PO DAILY [facility] Last Admin: 08/30/19 08:58 Dose: 40 mg Documented by: Magnesium Hydroxide (Milk Of Magnesia) 30 ml PO BID PRN PRN PRN Reason: Constipation Last Admin: 08/30/19 07:24 Dose: 30 ml Documented by: Morphine Sulfate () 4 mg IV Q3H PRN PRN PRN Reason: Pain Score 6-10/10 Last Admin: 08/29/19 15:39 Dose: 4 mg Documented by: Ondansetron HCl (Zofran) 4 mg IV Q8H PRN PRN PRN Reason: NAUSEA/VOMITING Simethicone (Mylicon) 80 mg PO TIDPC PRN PRN Reason: Bloating/Gas Last Admin: 08/29/19 15:03 Dose: 80 mg Documented by: Sodium Chloride () 10 - 40 ml IV UD PRN PRN Reason: Midline Flush Last Admin: 08/29/19 15:39 Dose: 10 ml Documented by: Sodium Chloride (0.9% Nacl (Sterile) Posiflush) 10 - 40 ml IV UD PRN PRN Reason: Port access or dressing change Sodium Chloride () 10 - 40 ml IV UD PRN PRN Reason: SALINE FLUSH Tramadol HCl (Ultram) 50 mg PO Q6H PRN PRN PRN Reason: Pain 1-10 or Fever Verapamil HCl (Calan Sr) 240 mg PO BID SELMA Last Admin: 08/30/19 08:58 Dose: 240 mg Documented by: Medical Necessity - Tobacco Use Smoking Status: Never smoker Assessment/Plan All Active Problems (Last Reviewed 04/28/19 @ 10:37 by Vane Geiger) NSTEMI (non-ST elevated myocardial infarction) (Acute) Acute urinary retention (Acute) Gastroenteritis (Acute) 1. NSTEMI-cardiology following. Echocardiogram demonstrates an EF of 45 to 50%. Mild mitral valve insufficiency, RVSP estimated to be 41 mmHg. Plan for heart cath on . Continue aspirin, plavix. 2. Mild dehydration-gentle IV fluids, trend BMP. 3. Abdominal bloating, cramping, constipation-Improved. Placed on PPI. PRN regimen for antiemetics, bloating. Bowel regimen. 4. Chronic normocytic anemia-stable. 5. Paroxysmal atrial fibrillation-Xarelto on hold. Rate controlled. Continue carvedilol, verapamil. 6. Hypertension-stable, continue carvedilol, verapamil, lisinopril. 7. Hyperlipidemia-not on statin. Dose for statin at this time given mildly elevated AST/AST. 8. Degenerative disc disease/lumbosacral spinal stenosis/chronic back pain- PT/OT. PRN pain regimen. DVT prophylaxis- Lovenox sc This patient was seen by TRUMAN Jones under the supervision of Dr. Eubanks. <Balta Eubanks - Last Filed: 08/30/19 15:23> - Physical Exam Vitals/I&O's: Vital Signs Temp Pulse Resp BP Pulse Ox 36.9 C 52 L 18 91/58 L 95 08/30/19 14:21 08/30/19 14:53 08/30/19 14:21 08/30/19 14:21 08/30/19 14:21 Oxygen Flow Rate (L/min) 5 Oxygen Delivery Method Room Air Weight: 69 kg Body Mass Index (BMI) 26.9 Intake and Output for Last 24 Hours 08/28/19 08/29/19 08/30/19 23:59 23:59 23:59 Intake Total 1240 / 1240 430 / 430 Balance 1240 / 1240 430 / 430 General: Alert, Cooperative HEENT: Atraumatic, Normocephalic Neck: No JVD, No Nodes Lungs: Clear to auscultation, Normal air movement, No rhonchi, No wheeze Cardiovascular: Regular rate, Regular Rhythm, Normal S1, Normal S2, No murmurs Abdomen: Bowel Sounds Present, Soft, Non Tender, Non-Distended Extremities: No edema, No Calf Tenderness Skin: No rashes, No breakdown Musculoskeletal: No Tenderness to Palpation of Joints or Extremities Neurological: Cranial nerves II-XII grossly intact, Neuro grossly intact Psych/Mental Status: Normal Affect, Appropriate Laboratory Results 08/30/19 05:10: Sodium 138, Potassium 4.7, Chloride 105, Carbon Dioxide 26.0, Anion Gap 7, BUN 30 H, Creatinine 1.13 H, Estim Creat Clear Calc 31.75, Est GFR (MDRD) Af Amer 59 L, Est GFR (MDRD) Non-Af 49 L, BUN/Creatinine Ratio 26.5 H, Glucose 98, Calcium 8.2 L, Triglycerides 113, Cholesterol 168, LDL Cholesterol 108, VLDL Cholesterol 23, HDL Cholesterol 37 L Current Medications Acetaminophen (Tylenol) 500 - 1,000 mg PO Q6H PRN PRN PRN Reason: Pain Score 4-5/10 Last Admin: 08/29/19 13:38 Dose: 1,000 mg Documented by: Aspirin (Ecotrin) 81 mg PO DAILY@0800 [facility] Last Admin: 08/30/19 07:24 Dose: 81 mg Documented by: Carvedilol (Coreg) 25 mg PO BID [facility] Last Admin: 08/30/19 08:58 Dose: 25 mg Documented by: Clopidogrel Bisulfate (Plavix) 75 mg PO DAILY [facility] Diphenhydramine HCl (Benadryl) 50 mg PO X1 ONE Stop: 08/31/19 07:01 Enoxaparin Sodium (Lovenox) 40 mg SC DAILY [facility] Last Admin: 08/30/19 08:58 Dose: 40 mg Documented by: Sodium Chloride () 250 mls @ 15 mls/hr IV .[id number] PRN PRN Reason: Saline Flush Sodium Chloride () 250 mls @ 15 mls/hr IV .[id number] PRN PRN Reason: Additional IVPB Infusion Sodium Chloride () 1,000 mls @ 15 mls/hr IV .Q48H SELMA Sodium Chloride () 1,000 mls @ 100 mls/hr IV .Q10H [facility] Stop: 08/30/19 21:04 Last Admin: 08/30/19 12:13 Dose: 100 mls/hr Documented by: Lisinopril (Zestril) 40 mg PO DAILY [facility] Last Admin: 08/30/19 08:58 Dose: 40 mg Documented by: Magnesium Hydroxide (Milk Of Magnesia) 30 ml PO BID PRN PRN PRN Reason: Constipation Last Admin: 08/30/19 14:23 Dose: 30 ml Documented by: Morphine Sulfate () 4 mg IV Q3H PRN PRN PRN Reason: Pain Score 6-10/10 Last Admin: 08/29/19 15:39 Dose: 4 mg Documented by: Ondansetron HCl (Zofran) 4 mg IV Q8H PRN PRN PRN Reason: NAUSEA/VOMITING Last Admin: 08/30/19 14:24 Dose: 4 mg Documented by: Pantoprazole Sodium (Protonix) 40 mg PO DAILY [facility] Last Admin: 08/30/19 12:13 Dose: 40 mg Documented by: Senna/Docusate Sodium (Senokot-S, Kendra-Colace) 2 tablet PO DAILY PRN PRN PRN Reason: CONSTIPATION Last Admin: 08/30/19 12:17 Dose: 2 tablet Documented by: Simethicone (Mylicon) 80 mg PO TIDPC PRN PRN Reason: Bloating/Gas Last Admin: 08/29/19 15:03 Dose: 80 mg Documented by: Sodium Chloride () 10 - 40 ml IV UD PRN PRN Reason: Midline Flush Last Admin: 08/30/19 14:24 Dose: 10 ml Documented by: Sodium Chloride (0.9% Nacl (Sterile) Posiflush) 10 - 40 ml IV UD PRN PRN Reason: Port access or dressing change Sodium Chloride () 10 - 40 ml IV UD PRN PRN Reason: SALINE FLUSH Tramadol HCl (Ultram) 50 mg PO Q6H PRN PRN PRN Reason: Pain 1-10 or Fever Verapamil HCl (Calan Sr) 240 mg PO BID SELMA Last Admin: 08/30/19 08:58 Dose: 240 mg Documented by: Assessment/Plan Patient seen and examined independently. Data reviewed. I agree with the above note by the nurse practitioner. 1. Non-ST elevation myocardial infarction: * Troponin peaked at 2.07. * Currently asymptomatic. * EF showing 40 to 50% * Continue with aspirin and clopidogrel * Left heart caths will be performed on 611. Inpatient E&M: 39450 Subs Hosp L2
--- NOTE | 2019-08-30 11:11 | PN.CARD_ITS ---
Subjectve: Patient feeling much better this morning, minimal midepigastric pain. No 24- hour events. TelemetryAtrial fibrillation with controlled ventricular response and with rare PVCs. Objective: Vital Signs Temp Pulse Resp BP Pulse Ox 98.5 F 60 14 116/63 95 08/30/19 08:57 08/30/19 08:57 08/30/19 08:57 08/30/19 08:57 08/30/19 08:57 Oxygen Flow Rate (L/min) 5 Oxygen Delivery Method Room Air Weight: 152 lb 1.903 oz Body Mass Index (BMI) 26.9 Intake and Output for Last 24 Hours 08/28/19 08/29/19 08/30/19 23:59 23:59 23:59 Intake Total 1240 / 1240 Balance 1240 / 1240 General: Awake, Alert, Oriented x 3 HEENT: PERRL, EOMI, Sclera Non Icteric Neck: Supple, Good ROM, No Lymph Node Enlargement Lungs: Clear to auscultation Cardiovascular: Regular Rhythm, Normal S1, Normal S2, No Murmurs, No Rubs, No Gallops Vascular: No Carotid Bruits, Normal Femoral Pulses, Normal Radial Pulses, Normal Dorsalis Pedal Pulse, Normal Posterior Tibial Pulses Abdomen: Bowel Sounds Present, Soft, Non Tender, No HSM, No Organomegaly Extremities: No Cyanosis, No Clubbing, No edema Neurological: No Focal Motor or Sensory Deficit 08/29/19 10:50: Troponin I 1.530 H* 08/29/19 13:42: Troponin I 1.340 H* 08/30/19 05:10: Sodium 138, Potassium 4.7, Chloride 105, Carbon Dioxide 26.0, Anion Gap 7, BUN 30 H, Creatinine 1.13 H, Est GFR (MDRD) Af Amer 59 L, Est GFR (MDRD) Non-Af 49 L, BUN/Creatinine Ratio 26.5 H, Glucose 98, Calcium 8.2 L, Triglycerides 113, Cholesterol 168, LDL Cholesterol 108, VLDL Cholesterol 23, HDL Cholesterol 37 L Rhythm: EKG: ECHO: Stress Test: Cardiac Cath: PCI: CT Surgery: Holter monitor: EPS: PPM: CXR: Chest CT Scan: Medical Necessity - Tobacco Use Smoking Status: Never smoker Assessment/Plan 1. Atrial fibrillation:Patient presents with longstanding atrial fibrillation but previously was on no anticoagulation therapy.Patient was started on Xarelto last week by Rashad Enriquez in the office, and soon after that the patient developed GI upset with additional diarrhea.She now presents with atrial fibrillation with controlled ventricular response, midepigastric tenderness, and a troponin of 2.0. Her hemoglobin is stable at 11. I recommended discontinuation of her Xarelto at this time.Patient underwent a non-walking Stress echocardiogram in April 2019 which was negative for inducible ischemia.In light of her recent troponin abnormality, and midepigastric pain I recommend that she undergo a left heart catheterization in 3 days timeTo confirm/deny the presence of significant coronary Occlusive disease. A repeat echocardiogram done 08/29/2019 to evaluate for possible pericardial effusion was as follows: The estimated ejection fraction is 45-50 %. Unable to assess diastolic dysfunction due to arrhythmia. Infero-Basal: Mildly hypokinetic Mid-Lateral : Mildly hypokinetic The left atrium is severely enlarged. The right atrium is moderately enlarged. Mild (1+) posteriorly directed mitral valve insufficiency. Trivial tricuspid valve insufficiency. Right ventricular systolic pressure estimated to be 41 mmHg. Mild pulmonary hypertension. Compared to echo report dated 05/10/2019, LV function has decreased from 65% to 55%, RVSP has remained about the same. Pt appears to be in atrial fibrillation. Patient will be loaded with Plavix tonight with 300 mg x 1 followed by 75 mg daily.She will continue baby aspirin. In the meantime I recommend continue her on her H2 mira or upgrading her to PPI therapy for possible gastritis. 2. Hyperlipidemia:Her LFTs are slightly elevated. She no longer has her gallbladder. Would hold off on antilipid therapy at this time. 3. Left heart catheterization to follow tomorrow morning.Thank you very much for the opportunity to participate in the cardiac care of your patient. Inpatient E&M: 07742 Subs Hosp L2
[2019-08-30] MEDS: 0.9% Normal Saline 1,000 ML 100 ML IV (12:13)
[2019-08-30] MEDS: Pantoprazole Sodium 40 MG Tablet PO (12:13)
[2019-08-30] MEDS: Clopidogrel Bisulfate 300 MG Tablet PO (12:13)
[2019-08-30] MEDS: 0.9% Saline Lock 10 ML Syringe IV ×3 (12:14→16:09)
[2019-08-30] MEDS: Senna/Docusate Sodium 1 Tablet 2 TABLET PO (12:17)
[2019-08-30] MEDS: Ondansetron 4 MG/2 ML Vial IV (14:24)
--- NOTE | 2019-08-30 15:27 | CASEMGMT ---
According to the [facility] website, the following are in-network tertiary facilities: [facility], [place], [facility], [facility], [place], [facility], and . Monica FRANKLIN CM
--- NOTE | 2019-08-30 16:03 | EKG12_ITS ---
Test Reason : CP Blood Pressure : / mmHG Vent. Rate : 058 BPM Atrial Rate : 076 BPM P-R Int : 000 ms QRS Dur : 082 ms QT Int : 450 ms P-R-T Axes : 000 032 009 degrees QTc Int : 441 ms Atrial fibrillation Nonspecific ST abnormality Abnormal ECG Confirmed by JANY BRAVO, ELIZABET ([id number]), design editor SUREKHA NOLAN ([id number]) on 09/06/2019 1:30:01 PM Referred By: WAYLON Confirmed By:ELIZABET CARMICHAEL MD
[2019-08-30] MEDS: Morphine 4 MG/ML Syringe IV (16:08)
--- NOTE | 2019-08-30 16:20 | CT_ITS ---
STUDY: CT BRAIN WITHOUT CONTRAST REASON FOR EXAM: Female, 84 years old. BILATERAL ARM NUMBNESS RADIATION DOSAGE (If Supplied By Facility): CTDIvol = ( 44.99 ) mGy, DLP = ( 829.85 ) mGycm TECHNIQUE: Transaxial CT imaging of the brain was performed without administration of intravenous contrast material. Individualized dose optimization techniques were used for this CT. COMPARISON: Prior head CT exam of April 18, 2018 FINDINGS: Normal soft tissue structures. Normal calvarium. Normal size ventricles and extra-axial spaces for the patient''s age. Normal white matter tracts of the cerebral hemispheres. Normal basal ganglia and thalami. Normal brainstem. Normal cerebellum. There is no intracranial hemorrhage. There are no findings of an acute ischemic infarction. Normal visualized paranasal sinuses. CT/Brain/Head without Contrast IMPRESSION: Normal unenhanced CT scan of the brain. Electronically Signed: Marce Pappas MD at 17:21 EDT , Service support ,
--- NOTE | 2019-08-30 16:40 | RAD_ITS ---
STUDY: X-RAY - ABDOMEN/PELVIS REASON FOR EXAM: Female, 84 years old. ABDOMINAL PAIN, BLOATING TECHNIQUE: 1 view COMPARISON: None. FINDINGS: Nondistended stomach, small bowel and colon. Negative for substantial stool collection. Negative for gross organomegaly. Neural stimulator present terminating at thoracic level. Vascular calcifications. Degenerative changes of the lumbar spine with a mild levoscoliosis. RAD/Abdomen Single View IMPRESSION: Negative for evidence of bowel obstruction or perforation. Negative for a substantial amount of stool. Negative for gross organomegaly. Electronically Signed: Marce Pappas MD at 17:25 EDT , Service support ,
[2019-08-30] MEDS: Magnesium Citrate 300 ML 150 ML PO (17:01)
--- NOTE | 2019-08-30 17:05 | CASEMGMT ---
Social Work Responding to [employer]. Family contacted by this geriatric social work professor per nursing/doctor request. Noting that patient reported to RN ODILIA to have a HCPOA and that son's Thiago and Balta are the HCPOA's. Advanced directives are not on patient chart. Patient sonThiago is listed as person to contact. Telephone call to Thiago, informed Thiago that patient is currently receiving chest compressions/CPR and inquiring about code status. Thiago to call other siblings and is heading to the hospital. Adolph Carrasco MSW, SALLY
[2019-08-30] MEDS: Acetaminophen 500 MG Tablet PO (17:08)
[2019-08-30] MEDS: traMADol 50 MG Tablet PO (17:08)
--- NOTE | 2019-08-30 17:26 | NURSING ---
Pt returned from Brain CT and XR. Pt continued to c/o of abdomen and neck pain that doctor was notified of prior to CT. Pt became diaphoretic, pale and unresponsive. talent acquisition relationship manager called whom then called RT. This RN attempted to obtain VS and bp 46/20. Pt placed in trendelenburg and soon became pulseless and code blue called.
--- NOTE | 2019-08-30 17:30 | CASEMGMT ---
Social Work Telephone call to patient son, Thiago. This social media content specialist to meet patient son outside hospital to escort to patient room. This social media content specialist met Thiago at ED entrance and escorted Thiago to patient room. Thiago speaking with Dr. Eubanks and updated on patient medical status by Dr. Eubanks. Active support provided to Thiago. Patient did pass. Thiago stating to have updated all family members. Adolph Carrasco MSW, SALLY
--- NOTE | 2019-08-30 18:00 | PCM.DEATH ---
Preliminary Cause of Cardiac arrest (asystole) Date of Admission: 08/29/19 Date of : 08/30/19 - Principle Diagnosis Cardiac arrest. Problem List: Active and Suspected Problems (Last Reviewed 04/28/19 @ 10:37 by Vane Geiger) NSTEMI (non-ST elevated myocardial infarction) (Acute) Hospital Course 84-year-old white female presented with abdominal bloating and upper back pain. Patient had stated that her pain rated into her arms which she initially attributed to her known spinal stenosis. But never had any symptom such as this before. She presented to the emergency room and was found to have a non-ST ovation myocardial infarction with a troponin of 2.07. Subsequent troponins continue to decline. Patient was seen in consultation by cardiology who is planning doing a left heart catheterization on the . That was held because patient was on apixaban which was held. Patient was feeling better well is claiming some dull discomfort feeling the need to have a bowel movement. Later today, the patient was having some abdominal pain and had an abdominal x-ray that was unremarkable patient is also complaining of some arm numbness and facial numbness. Twitch she had a head CT that was unremarkable. At 1608, she received 4 mg of morphine for pain. A rapid response team was called as the patient was noted to be unresponsive and hypoxic. And when I arrived, patient did not have a pulse. Patient was eventually put on a monitor and was found to have asystole. CPR was initiated at roughly 1730. Patient received several rounds of epinephrine. Patient did have some PEA but for the most part remained in asystole. Family was notified and patient's son arrived. Conferred with him in regards to continuation of CPR. He stated that the patient would not want this and CPR was discontinued and patient was pronounced at 1754. During CPR, patient did receive 0.4 mg of Narcan with no benefit. Inpatient E&M: 42294 Disch Hosp
[2019-08-30 18:11] LABS: Bedside Glucose 190 mg/dL (70-110)
== END 2019-08-30 17:44 ==
LOC: ED 08:32 → PCU 09:21
PROVIDERS: Nurse Practitioner Family; Admitting Provider Internal Medicine; Emergency Provider Emergency Medicine; PCP Family Medicine
DX: I21.4 Non-ST elevation (NSTEMI) myocardial infarction (principal); I46.9 Cardiac arrest, cause unspecified; I48.0 Paroxysmal atrial fibrillation; I34.0 Nonrheumatic mitral (valve) insufficiency; I10 Essential (primary) hypertension; E78.2 Mixed hyperlipidemia; E86.0 Dehydration; D64.9 Anemia, unspecified; M19.90 Unspecified osteoarthritis, unspecified site; M50.30 Other cervical disc degeneration, unspecified cervical region; M47.812 Spondylosis without myelopathy or radiculopathy, cervical region; M47.27 Other spondylosis with radiculopathy, lumbosacral region; M48.07 Spinal stenosis, lumbosacral region; G89.29 Other chronic pain; K59.00 Constipation, unspecified; Z79.899 Other long term (current) drug therapy
CPT/HCPCS: 36415; 70450; 74018; 80048; 80053; 80061; 82962; 84484; 85025; 92950; 93005; 93306; 99285; J7030; A4216; J2405